=== PATIENT | male | born 1970 | race Caucasian/White ===

== ENCOUNTER 2018-08-05 12:48 | Inpatient (IN) | payer OTHER ==
[2018-08-05 21:44] VITALS: BMI 22.5
--- NOTE | 2018-08-05 23:35 | HP ---
CIWA Score Nausea/Vomitin-No Nausea/No Vomiting Muscle Tremors: 3 Anxiety: 4-Mod. Anxious/Guarded Agitation: 4-Moderately Restless Paroxysmal Sweats: 3 Orientation: 3-Disoriented Date>2 days Tacttile Disturbances: 2-Mild Itch/Numbness/Burn Auditory Disturbances: 2-Mild Harshness/Frighten Visual Disturbances: 2-Mild Sensitivity Headache: 0-None Present CIWA-Ar Total Score: 23 - Admission Criteria OASAS Guidelines: Admission for Medically Managed Detox: Requires at least one of the followin. CIWA greater than 12 2. Seizures within the past 24 hours 3. Delirium tremens within the past 24 hours 4. Hallucinations within the past 24 hours 5. Acute intervention needed for co occurring medical disorder 6. Acute intervention needed for co occurring psychiatric disorder 7. Severe withdrawal that cannot be handled at a lower level of care (continued vomiting, continued diarrhea, abnormal vital signs) requiring intravenous medication and/or fluids 8. Patient presents the following: CIWA greater than 12 Admission Criteria Met: Admission criteria met Admission ROS [facility] Chief Complaint: c/o worsening withdrawal sx's Allergies/Adverse Reactions: Allergies Allergy/AdvReac Type Severity Reaction Status Date / Time No Known Allergies Allergy Verified 08/05/18 21:38 History of Present Illness: 47 Y.O. MALE WITH BENZO AND OPIOID DEPENDENCE HERE FOR DETOX. THIS IS CLIENT FIRST ADMISSION HERE REFERRED BY HIM MMTP PROGRAM. HE REPORTS THAT HE IS ON MMTP 90 MG DAILY. LDM TODAY PENDING VERIFICATION. REPORTS LONGEST CLEAN TIME IS 4 YEARS WHILE INCARCERATED. RELAPSING 2018. DENIES HX/O OVERDOSE, SEIZURES, BLACKOUTS', DT'S, SI/HI/AVH. HOMELESS, UNEMPLOYED, DENIES LEGALS Exam Limitations: No Limitations - Ebola screening Have you traveled outside of the country in the last 21 days: No Have you had contact with anyone from an Ebola affected area: No - Review of Systems Constitutional: Chills, Loss of Appetite, Night Sweats, Changes in sleep EENT: reports: No Symptoms Reported Respiratory: reports: No Symptoms reported Cardiac: reports: No Symptoms Reported GI: reports: Poor Appetite, Poor Fluid Intake : reports: No Symptoms Reported Musculoskeletal: reports: No Symptoms Reported Integumentary: reports: No Symptoms Reported Neuro: reports: No Symptoms reported Endocrine: reports: No Symptoms Reported Hematology: reports: No Symptoms Reported Psychiatric: reports: Agitated (IRRITABLE), Anxious, Depressed Patient History - Patient Medical History Hx Anemia: No Hx Asthma: No Hx Chronic Obstructive Pulmonary Disease (COPD): No Hx Cancer: No Hx Cardiac Disorders: No Hx Congestive Heart Failure: No Hx Hypertension: No Hx Hypercholesterolemia: No Hx Pacemaker: No Hx Seizures: No Hx Dementia: No Hx Diabetes: No Hx Gastrointestinal Disorders: No Hx Liver Disease: No Hx Genitourinary Disorders: No Hx Sexually Transmitted Disorders: No Hx Renal Disease (ESRD): No Hx Thyroid Disease: No Hx Human Immunodeficiency Virus (HIV): No Hx Hepatitis C: Yes (TX'ED) Hx Depression: No Hx Suicide Attempt: No Hx Bipolar Disorder: No Hx Schizophrenia: No - Patient Surgical History Past Surgical History: No - PPD History Previous Implant?: Yes Documented Results: Positive w/o proof Implanted On Prior [facility] Admission?: No PPD to be Administered?: No - Smoking Cessation Smoking history: Current every day smoker () Have you smoked in the past 12 months: Yes Aproximately how many cigarettes per day: 4 Cigars Per Day: 0 Hx Chewing Tobacco Use: No Initiated information on smoking cessation: Yes 'Breaking Loose' booklet given: 08/05/18 - Substance & Tx. History Hx Alcohol Use: Yes Hx Substance Use: Yes Substance Use Type: Alcohol, Tranquilizers (XANAX) Hx Substance Use Treatment: Yes (MMTP PROGRAM) - Substances abused Alprazolam (Xanax) Substance route: Oral Frequency: Daily Amount used: 3/2MG Age of first use: 45 Date of last use: 08/04/18 Family Disease History - Family Disease History Family Disease History: Other: Brother (ALCOHOLISM- ) Admission Physical Exam [facility] - Vital Signs Vital Signs: Vital Signs - 24 hr 08/05/18 08/05/18 21:37 22:30 Temperature 98.6 F 98.6 F Pulse Rate 61 61 Respiratory 18 18 Rate Blood Pressure 96/70 96/70 - Physical General Appearance: Yes: Moderate Distress, Tremorous, Irritable, Anxious HEENTM: Yes: EOMI, Normocephalic, Normal Voice, RAQUEL, Pharynx Normal, Other ( POOR DENTITION) Respiratory: Yes: Chest Non-Tender, Lungs Clear, Normal Breath Sounds, No Respiratory Distress, No Accessory Muscle Use Neck: Yes: No masses,lesions,Nodules, Supple, Trachea in good position Breast: Yes: Breast Exam Deferred Cardiology: Yes: Regular Rhythm, Regular Rate, S1, S2 Abdominal: Yes: Non Tender, Flat, Soft, Increased Bowel Sounds Genitourinary: Yes: Within Normal Limits (NO C/O) Back: Yes: Normal Inspection Musculoskeletal: Yes: full range of Motion, Gait Steady Extremities: Yes: Normal Capillary Refill, Normal Range of Motion, Non-Tender, Tremors Neurological: Yes: Fully Oriented, Alert, Motor Strength 5/5, Depressed Affect Integumentary: Yes: Dry, Warm Lymphatic: Yes: Within Normal Limits - Diagnostic (1) Sedative, hypnotic or anxiolytic dependence, uncomplicated Current Visit: Yes Status: Chronic (2) Methadone maintenance therapy patient Current Visit: Yes Status: Acute (3) Homeless Current Visit: Yes Status: Acute (4) At risk for dehydration due to poor fluid intake Current Visit: Yes Status: Acute Cleared for Admission S - Detox or Rehab [facility] Level of Care: Medically Managed Detox Regimen/Protocol: Valium Claeared for Rehab Admission: No Breathalyzer - Breathalyzer Breathalyzer: 0 Urine Drug Screen - Test Device Lot number: [id number] Expiration date: 04/21/20 - Control Is test valid?: Yes - Results Drug screen NEGATIVE: No Urine drug screen results: MTD-Methadone, BZO-Benzodiazepines Inpatient Rehab Admission - Rehab Decision to Admit Inpatient rehab admission?: No
[2018-08-05] MEDS ORDERED: MAGNESIUM CITRATE 300 ML BOTTLE PO PRN (23:49)
[2018-08-05] MEDS ORDERED: NICOTINE POLACRILEX 2 MG GUM BUC PRN (23:49)
[2018-08-05] MEDS ORDERED: MAG HYDROX/AL HYDROX/SIMETH 30 ML UNIT-DOSE CUP PO PRN (23:49)
[2018-08-05] MEDS ORDERED: P-EPHED 60MG/TRIPROLIDI 2.5MG TABLET PO PRN (23:49)
[2018-08-05] MEDS ORDERED: ONDANSETRON *ODT* 4 MG TABLET SL PRN (23:49)
[2018-08-05] MEDS ORDERED: hydrOXYzine PAMOATE 25 MG CAPSULE (FP) PO PRN (23:49)
[2018-08-05] MEDS ORDERED: METHOCARBAMOL 500 MG TABLET PO PRN (23:49)
[2018-08-05] MEDS ORDERED: guaiFENesin 200 MG/10 ML 10 ML UNIT-DOSE CUPS PO PRN (23:49)
[2018-08-05] MEDS ORDERED: IBUPROFEN 400 MG TABLET (FP) PO PRN (23:49)
[2018-08-05] MEDS ORDERED: BISMUTH SUBSALICYLATE 524 MG/30 ML UD PO PRN (23:49)
[2018-08-05] MEDS ORDERED: MENTHOL/PHENOL 1 EACH UD MM PRN (23:49)
[2018-08-05] MEDS ORDERED: MAGNESIUM HYDROX 2400MG/30ML ORAL SUSPENSION 30 ML CUP PO PRN (23:49)
[2018-08-05] MEDS ORDERED: ACETAMINOPHEN 325 MG TABLET (FP) PO PRN ×2 (23:49)
[2018-08-05] MEDS ORDERED: MELATONIN 5 MG TABLETS PO PRN (23:49)
[2018-08-06] MEDS: diazePAM 5 MG TABLET PO SCH ×4 (00:14→22:20)
[2018-08-06] MEDS: diazePAM 5 MG TABLET PO PRN (00:28)
[2018-08-06] MEDS ORDERED: METHADONE HCL 40 MG DISPERSABLE TABLET PO SCH (08:45)
[2018-08-06] MEDS ORDERED: METHADONE HCL 10 MG TABLET ONE (09:42)
[2018-08-06] MEDS ORDERED: METHADONE HCL 40 MG DISPERSABLE TABLET ONE (09:43)
[2018-08-06] MEDS: METHADONE 10 MG, METHADONE 80 MG PO SCH (10:23)
[2018-08-06] MEDS: PRENATAL VITAMINS W/ FOLIC ACID TABLET (FP) PO SCH (10:23)
[2018-08-06] MEDS: NICOTINE 14 MG/24 HOURS TOPICAL PATCH TD SCH (10:24)
--- NOTE | 2018-08-06 10:30 | PN ---
S CIWA - CIWA Score Nausea/Vomitin-No Nausea/No Vomiting Muscle Tremors: 2 Anxiety: 2 Agitation: 2 Paroxysmal Sweats: 3 Orientation: 0-Oriented Tacttile Disturbances: 1-Very Mild Itch/Numbness Auditory Disturbances: 0-None Visual Disturbances: 0-None Headache: 2-Mild CIWA-Ar Total Score: 12 BHS Progress Note (SOAP) Subjective: c/o headaches, sweats, anxiety, and shakes Objective: 08/06/18 10:29 Vital Signs 08/06/18 08/06/18 08/06/18 03:30 06:12 09:29 Temperature 97.1 F L 96.8 F L Pulse Rate 78 66 Respiratory 18 18 16 Rate Blood Pressure 106/64 115/64 Labs pending. Assessment: 08/06/18 10:29 AOX3, in no acute distress Full ROM, ambulating in the unit. Withdrawal symptoms. Plan: continue detox. increase fluids.
[2018-08-06 10:47] LABS: ALBUMIN 3.2 g/dl (3.4-5.0); BILIRUBIN,TOTAL 0.5 mg/dL (0.2-1); BLOOD UREA NITROGEN 8.8 mg/dL (7-18); CALCIUM 8.5 mg/dL (8.5-10.1); CREATININE 0.6 mg/dL (0.55-1.3); TOT PROT 5.8 g/dl (6.4-8.2)
[2018-08-06 11:16] LABS: HEMATOCRIT 35.7 % (35.4-49); HEMOGLOBIN 12.3 GM/dL (11.7-16.9); MCH 31.5 pg (25.7-33.7); MCHC 34.5 g/dl (32.0-35.9); MEAN CELL VOLUME 91.3 fl (80-96); MEAN PLT VOLUME 8.7 fl (7.5-11.1); RBC 3.91 M/mm3 (4.00-5.60); RDW 13.7 % (11.9-15.9); WHITE BLOOD COUNT 5.4 K/mm3 (4.0-10.0)
[2018-08-06 11:33] LABS: PLATELET COUNT 197 K/MM3 (134-434)
--- NOTE | 2018-08-06 15:38 | CONSULT ---
[facility] Psychiatric Consult - Data Date of interview: 08/06/18 Admission source: [facility] Identifying data: First admission to [facility] for this 47 y/o male self-referred for detoxification treatment (heroin, xanax). Examined at bedside , [address]. Patient is , a father of eight, homeless, unemployed and supported on food stamps. Substance Abuse History: Discussed in this session. Michele confirms history of substance abuse as profiled in current [facility] report : Smoking history: Current every day smoker. Have you smoked in the past 12 months: Yes. Aproximately how many cigarettes per day: 4. Cigars Per Day: 0. Hx Chewing Tobacco Use: No. Initiated information on smoking cessation: Yes. 'Breaking Loose' booklet given: 08/05/18. - Substance & Tx. History. Hx Alcohol Use: Yes. Hx Substance Use: Yes. Substance Use Type: Alcohol, Tranquilizers (XANAX). Hx Substance Use Treatment: Yes (MMTP PROGRAM). - Substances abused. Alprazolam (Xanax). Substance route: Oral. Frequency: Daily. Amount used: 3/ 2MG. Age of first use: 45. Date of last use: 08/04/18 Medical History: Remarkable for self-report of hepatitis C and arthritis. Psychiatric History: Patient denies history of psychiatric hospitalizations or suicide attempts. Mr Malloy admits to using xanax (not prescribed, bought in the streets). He is currently in methadone maintenance (90 mg//day) at a program in [facility]. Patient denies having a mental illness. Physical/Sexual Abuse/Trauma History: Patient denies. Additional Comment: Urine drug screen results: MTD-Methadone, BZO- Benzodiazepines. Noted. Mental Status Exam - Mental Status Exam Alert and Oriented to: Time, Place, Person Cognitive Function: Grossly Intact Patient Appearance: Unkempt, Disheveled (tattoos on both upper extremities) Mood: Nervous, Withdrawn Affect: Mood Congruent, Constricted Patient Behavior: Sedated (mildly sedated), Fatigued Speech Pattern: Slurred Voice Loudness: Moderately Soft/Quiet Thought Process: Goal Oriented Thought Disorder: Not Present Hallucinations: Denies Suicidal Ideation: Denies Homicidal Ideation: Denies Insight/Judgement: Poor Sleep: Well Appetite: Good Muscle strength/Tone: Normal Gait/Station: Other (not observed : in bed all day) Psychiatric Findings - Problem List ([place] 1, 2,3) (1) Sedative, hypnotic or anxiolytic dependence, uncomplicated Current Visit: Yes Status: Chronic (2) Opioid dependence on agonist therapy Current Visit: Yes Status: Chronic (3) Nicotine dependence Current Visit: Yes Status: Chronic (4) Substance induced mood disorder Current Visit: Yes Status: Suspected - Initial Treatment Plan Initial Treatment Plan: Psychoeducation. Sleep hygiene. Detoxification in progress. Support. Encourage patient to address personal hygiene. NA meetings. Observation.
[2018-08-06] MEDS: THIAMINE HCL 100 MG TABLET (FP) PO SCH (22:20)
[2018-08-07] MEDS ORDERED: METHADONE HCL 10 MG TABLET ONE (04:12)
[2018-08-07] MEDS ORDERED: METHADONE HCL 40 MG DISPERSABLE TABLET ONE (04:12)
[2018-08-07] MEDS: METHADONE 10 MG, METHADONE 80 MG PO SCH (05:47)
[2018-08-07] MEDS: diazePAM 5 MG TABLET PO PRN (05:47)
[2018-08-07] MEDS: PRENATAL VITAMINS W/ FOLIC ACID TABLET (FP) PO SCH (10:12)
[2018-08-07] MEDS: diazePAM 5 MG TABLET PO SCH ×2 (10:12→22:38)
[2018-08-07] MEDS: NICOTINE 14 MG/24 HOURS TOPICAL PATCH TD SCH (10:12)
--- NOTE | 2018-08-07 11:24 | PN ---
S CIWA - CIWA Score Nausea/Vomitin Muscle Tremors: 1-None Visible, but [place] Anxiety: 1-Mildly Anxious Agitation: 1-Slight > Activity Paroxysmal Sweats: 1-Minimal Palms Moist Orientation: 0-Oriented Tacttile Disturbances: 0-None Auditory Disturbances: 0-None Visual Disturbances: 0-None Headache: 1-Very Mild CIWA-Ar Total Score: 7 BHS Progress Note (SOAP) Subjective: headache poor sleep anxiety Objective: 08/07/18 11:21 Laboratory Tests 08/06/18 08/06/18 08/06/18 07:40 07:40 07:40 WBC 5.4 RBC 3.91 L Hgb 12.3 Hct 35.7 MCV 91.3 MCH 31.5 MCHC 34.5 RDW 13.7 Plt Count 197 MPV 8.7 Sodium 142 Potassium 4.0 Chloride 105 Carbon Dioxide 34 H Anion Gap 3 L BUN 8.8 Creatinine 0.6 Est GFR (CKD-EPI)AfAm 136.83 Est GFR (CKD-EPI)NonAf 118.06 Random Glucose 78 Calcium 8.5 Total Bilirubin 0.5 AST 39 H ALT 53 Alkaline Phosphatase 77 Total Protein 5.8 L Albumin 3.2 L RPR Titer Nonreactive Laboratory Tests 08/06/18 08/06/18 08/06/18 07:40 07:40 07:40 WBC 5.4 RBC 3.91 L Hgb 12.3 Hct 35.7 MCV 91.3 MCH 31.5 MCHC 34.5 RDW 13.7 Plt Count 197 MPV 8.7 Sodium 142 Potassium 4.0 Chloride 105 Carbon Dioxide 34 H Anion Gap 3 L BUN 8.8 Creatinine 0.6 Est GFR (CKD-EPI)AfAm 136.83 Est GFR (CKD-EPI)NonAf 118.06 Random Glucose 78 Calcium 8.5 Total Bilirubin 0.5 AST 39 H ALT 53 Alkaline Phosphatase 77 Total Protein 5.8 L Albumin 3.2 L RPR Titer Nonreactive Vital Signs - 24 hr 08/06/18 08/06/18 08/06/18 13:31 17:56 21:34 Temperature 97.0 F L 98.5 F 97.6 F Pulse Rate 66 67 57 L Respiratory 18 18 18 Rate Blood Pressure 106/63 120/73 113/71 08/07/18 08/07/18 08/07/18 00:30 03:30 06:30 Temperature Pulse Rate Respiratory 18 18 18 Rate Blood Pressure 08/07/18 08/07/18 06:37 09:19 Temperature 97.2 F L 97.0 F L Pulse Rate 61 56 L Respiratory 18 18 Rate Blood Pressure 102/58 L 109/63 alert, ambulating interactive Assessment: 08/07/18 11:23 alcohol dep/withdrawal Plan: cont detox protocol and dc per schedule
--- NOTE | 2018-08-07 16:54 | EKG ---
Test Reason : Blood Pressure : / mmHG Vent. Rate : 071 BPM Atrial Rate : 071 BPM P-R Int : 146 ms QRS Dur : 094 ms QT Int : 438 ms P-R-T Axes : 072 086 076 degrees QTc Int : 475 ms NORMAL SINUS RHYTHM NORMAL ECG NO PREVIOUS ECGS AVAILABLE Confirmed by MD MARKOS, CLAUDIA ([id number]) on 08/07/2018 4:54:06 PM Referred By: CONSUELO Confirmed By:CLAUDIA BURROWS MD
[2018-08-07] MEDS: THIAMINE HCL 100 MG TABLET (FP) PO SCH (22:38)
[2018-08-07 22:49] LABS: PH,URINE 5.5 (5.0-8.0); URINE APPEARANCE CLEAR; URINE BILIRUBIN NEGATIVE (NEGATIVE); URINE COLOR DK YELLOW; URINE GLUCOSE (UA) NEGATIVE (NEGATIVE); URINE KETONE TRACE (NEGATIVE); URINE LEUK ESTERASE NEGATIVE (NEGATIVE); URINE NITRITE NEGATIVE (NEGATIVE); URINE PROTEIN NEGATIVE (NEGATIVE)
[2018-08-08] MEDS ORDERED: METHADONE HCL 10 MG TABLET ONE (04:57)
[2018-08-08] MEDS ORDERED: METHADONE HCL 40 MG DISPERSABLE TABLET ONE (04:58)
[2018-08-08] MEDS: METHADONE 10 MG, METHADONE 80 MG PO SCH (05:21)
[2018-08-08] MEDS ORDERED: diazePAM 5 MG TABLET PO SCH (06:00)
[2018-08-08 09:23] VITALS: BP 116/73; PULSE 70; TEMP 97.6
[2018-08-08] MEDS: NICOTINE 14 MG/24 HOURS TOPICAL PATCH TD SCH (10:53)
[2018-08-08] MEDS: PRENATAL VITAMINS W/ FOLIC ACID TABLET (FP) PO SCH (10:53)
--- NOTE | 2018-08-08 16:38 | DS ---
[facility] Detox Discharge Summary Admission Date: 08/05/18 Discharge Date: 08/08/18 - History Present History: Opioid Dependence, Sedative Dependence, MMTP Additional Comments: PATIENT GOING TO PENDING SALE TO [facility] ([place] FOR AFTERCARE. PATIENT WAS DISCHARGED FROM DETOX UNIT IN STABLE MEDICAL CONDITION. Pertinent Past History: M.M.T.P., Hep C (Treated), Nicotine Dependence. - Physical Exam Results Vital Signs: Vital Signs Temperature 97.6 F 08/08/18 09:22 Pulse Rate 70 08/08/18 09:22 Respiratory Rate 18 08/08/18 09:22 Blood Pressure 116/73 08/08/18 09:22 O2 Sat by Pulse Oximetry (%) Pertinent Admission Physical Exam Findings: WITHDRAWAL SYMPTOMS. Laboratory Tests 08/06/18 08/06/18 08/06/18 07:40 07:40 07:40 WBC 5.4 RBC 3.91 L Hgb 12.3 Hct 35.7 MCV 91.3 MCH 31.5 MCHC 34.5 RDW 13.7 Plt Count 197 MPV 8.7 Sodium 142 Potassium 4.0 Chloride 105 Carbon Dioxide 34 H Anion Gap 3 L BUN 8.8 Creatinine 0.6 Est GFR (CKD-EPI)AfAm 136.83 Est GFR (CKD-EPI)NonAf 118.06 Random Glucose 78 Calcium 8.5 Total Bilirubin 0.5 AST 39 H ALT 53 Alkaline Phosphatase 77 Total Protein 5.8 L Albumin 3.2 L Urine Color Urine Appearance Urine pH Ur Specific [place] Urine Protein Urine Glucose (UA) Urine Ketones Urine Blood Urine Nitrite Urine Bilirubin Urine Urobilinogen Ur Leukocyte Esterase RPR Titer Nonreactive 08/07/18 16:00 WBC RBC Hgb Hct MCV MCH MCHC RDW Plt Count MPV Sodium Potassium Chloride Carbon Dioxide Anion Gap BUN Creatinine Est GFR (CKD-EPI)AfAm Est GFR (CKD-EPI)NonAf Random Glucose Calcium Total Bilirubin AST ALT Alkaline Phosphatase Total Protein Albumin Urine Color Dk yellow Urine Appearance Clear Urine pH 5.5 Ur Specific [place] 1.023 Urine Protein Negative Urine Glucose (UA) Negative Urine Ketones Trace H Urine Blood Negative Urine Nitrite Negative Urine Bilirubin Negative Urine Urobilinogen 1.0 Ur Leukocyte Esterase Negative RPR Titer LABS NOTED. - Treatment Hospital Course: Detox Protocol Followed, Detoxed Safely, Responded well, Discharged Condition Good, Rehab Referral Accepted Patient has Accepted a Rehab Referral to: PENDING SALE TO [facility] ([place]). - Diagnosis (1) At risk for dehydration due to poor fluid intake Status: Acute (2) Homeless Status: Acute (3) Methadone maintenance therapy patient Status: Chronic (4) Sedative, hypnotic or anxiolytic dependence, uncomplicated Status: Acute (5) Nicotine dependence Status: Chronic Qualifiers: Nicotine product type: cigarettes Substance use status: uncomplicated Qualified Code(s): F17.210 - Nicotine dependence, cigarettes, uncomplicated (6) Substance induced mood disorder Status: Suspected - AMA Did Patient Leave Against Medical Advice: No
== END 2018-08-08 12:06 | disposition home or self-care (01) | DRG 773 ==
LOC: YASAS 12:48 → Y3N 23:36
PROVIDERS: ADMIT Surgery; ATTEND Surgery
PROC: HZ2ZZZZ Detoxification Services for Substance Abuse Treatment (ICD-10-PCS; principal; 2018-08-05)
DX: F13.230 Sedative, hypnotic or anxiolytic dependence with withdrawal, uncomplicated (principal); F11.20 Opioid dependence, uncomplicated; F17.210 Nicotine dependence, cigarettes, uncomplicated; F19.24 Other psychoactive substance dependence with psychoactive substance-induced mood disorder; R63.8 Other symptoms and signs concerning food and fluid intake; Z59.0 Homelessness
CPT/HCPCS: 36415; 80053; 81003; 85027; 86593; 93005; 93010

== ENCOUNTER 2018-10-17 12:13 | Inpatient (IN) | payer OTHER ==
[2018-10-17 14:53] VITALS: BMI 22.5
--- NOTE | 2018-10-17 15:25 | HP ---
<Satya Peñaloza - Last Filed: 10/17/18 16:23> CIWA Score Nausea/Vomitin-No Nausea/No Vomiting Muscle Tremors: 4-Moderate,w/Arms Extend Anxiety: 2 Agitation: 1-Slight > Activity Paroxysmal Sweats: 1-Minimal Palms Moist Orientation: 2-Disoriented Date<2 days Tacttile Disturbances: 1-Very Mild Itch/Numbness Auditory Disturbances: 0-None Visual Disturbances: 4-Moderate Hallucinations Headache: 0-None Present CIWA-Ar Total Score: 15 - Admission Criteria OASAS Guidelines: Admission for Medically Managed Detox: Requires at least one of the followin. CIWA greater than 12 2. Seizures within the past 24 hours 3. Delirium tremens within the past 24 hours 4. Hallucinations within the past 24 hours 5. Acute intervention needed for co occurring medical disorder 6. Acute intervention needed for co occurring psychiatric disorder 7. Severe withdrawal that cannot be handled at a lower level of care (continued vomiting, continued diarrhea, abnormal vital signs) requiring intravenous medication and/or fluids 8. Patient presents the following: CIWA greater than 12 Admission Criteria Met: Admission criteria met Admission ROS [facility] Chief Complaint: detox for benzo Allergies/Adverse Reactions: Allergies Allergy/AdvReac Type Severity Reaction Status Date / Time Fish Containing Products Allergy Intermediate Hives Verified 10/17/18 14:54 tomato Allergy Intermediate Hives Verified 10/17/18 14:54 History of Present Illness: 48M w/ arthritis, peripheral neuropathy(formerly on gabapentin), h/o of distant heroin, methadone(100mg, [place]) presents for benzo detox after 3-4ys of dependence, taking 3-5 pills(2mg ea) daily. Last taken ~6am on 10/16/18. Gets benzo from the streets. Was recently evaluated in the ED([facility] in the [place]) for peripheral neuropathy w/o any intervention. No h/o benzo-related seizures. H/o shelter(last 2008). Tried detox 2ys prior(off bnezos for a few months but relapsed after a few months due to family stressors). Hasn't seen family and children in a few years. Non-domicile, living on the streets for a few months. Has had b/l plantar wounds x few weeks w/o purulence. Painful to walk and socks would stick to wound. - Ebola screening Have you traveled outside of the country in the last 21 days: No Have you had contact with anyone from an Ebola affected area: No - Review of Systems Constitutional: Unintentional Wgt. Loss (20lbs in 4ys), Other (no F/C) EENT: denies: Blurred Vision, Difficulty Swallowing Respiratory: denies: Cough, Productive cough Cardiac: denies: Irregular Heart Rate, Lightheadedness, Chest Tightness GI: denies: Nausea, Vomiting, Tarry Stools : denies: Burning, Dysuria, Incontinence Musculoskeletal: reports: Joint Swelling, Joint Stiffness. denies: Back Pain, Muscle Weakness Integumentary: reports: Erythema, Other (swelling to lower legs x weeks) Neuro: denies: Headache, Numbness, Dizziness Psychiatric: reports: Agitated, Anxious, Disorientated (oriented to name and location) Patient History - Patient Medical History Hx Anemia: No Hx Asthma: No Hx Chronic Obstructive Pulmonary Disease (COPD): No Hx Cancer: No Hx Cardiac Disorders: No Hx Congestive Heart Failure: No Hx Hypertension: No Hx Hypercholesterolemia: No Hx Pacemaker: No Hx Seizures: No Hx Dementia: No Hx Diabetes: No Hx Gastrointestinal Disorders: No Hx Liver Disease: No Hx Genitourinary Disorders: No Hx Sexually Transmitted Disorders: No Hx Renal Disease (ESRD): No Hx Thyroid Disease: No Hx Human Immunodeficiency Virus (HIV): No Hx Hepatitis C: Yes (TX'ED) Hx Depression: No Hx Suicide Attempt: No Hx Bipolar Disorder: No Hx Schizophrenia: No - Patient Surgical History Past Surgical History: No Hx Neurologic Surgery: No Hx Cataract Extraction: No Hx Cardiac Surgery: No Hx Lung Surgery: No Hx Breast Surgery: No Hx Breast Biopsy: No Hx Abdominal Surgery: No Hx Appendectomy: No Hx Cholecystectomy: No Hx Genitourinary Surgery: No Hx Section: No Hx Orthopedic Surgery: No Anesthesia Reaction: No - Smoking Cessation Smoking history: Unknown if ever smoked () Have you smoked in the past 12 months: No Aproximately how many cigarettes per day: 4 Cigars Per Day: 0 Hx Chewing Tobacco Use: No - Substances abused Alprazolam (Xanax) Substance route: Oral Frequency: Daily Amount used: (7) 2MG Age of first use: 45 Date of last use: 10/16/18 Benzodiazepine (Klonopin) Substance route: Oral Frequency: Daily Amount used: (7) 2mg pills Age of first use: 28 Date of last use: 10/16/18 Family Disease History - Family Disease History Family Disease History: Other: Brother (ALCOHOLISM- ) Admission Physical Exam [facility] - Vital Signs Vital Signs: Vital Signs - 24 hr 10/17/18 14:45 Temperature 96.5 F L Pulse Rate 55 L Respiratory 18 Rate Blood Pressure 102/66 - Physical General Appearance: Yes: No Apparent Distress, Thin. No: Intoxicated HEENTM: Yes: Other (moderate temporal wasting). No: Pale Conjunctivae R, Pale Conjunctivae L, Scleral Ictenus R, Scleral Ictenus L Respiratory: Yes: Lungs Clear, No Respiratory Distress. No: Chest Non-Tender, Labored Respiration, No Accessory Muscle Use, Rapid RR, Accessory Muscle Use, Crackles, Wheezing Neck: Yes: Within Normal Limits, No masses,lesions,Nodules, Trachea in good position Cardiology: Yes: Regular Rhythm, Regular Rate, S1, S2. No: Irregularly Irregular Abdominal: Yes: Non Tender, Soft. No: Distended, Guarding, Rebound, Tenderness Genitourinary: No: Burning, Frequency, Hesitency, Incontinient Musculoskeletal: Yes: Gait Steady, Other (weakness in flexion/extension of left wrist) Extremities: Yes: Tremors, Other (draining serous wounds to b/l plantar forefeet , no surrounding erythema, TTP. 1+ pitting edema to mid lower leg) Neurological: Yes: Alert Integumentary: Yes: Dry, Warm Cleared for Admission [facility] - Detox or Rehab [facility] Level of Care: Medically Managed Detox Regimen/Protocol: Valium Breathalyzer - Breathalyzer Breathalyzer: 0 Urine Drug Screen - Test Device Lot number: [id number] Expiration date: 04/21/20 - Control Is test valid?: Yes - Results Drug screen NEGATIVE: No Urine drug screen results: MTD-Methadone, BZO-Benzodiazepines Inpatient Rehab Admission - Rehab Decision to Admit Inpatient rehab admission?: No <Jeison Link - Last Filed: 10/17/18 16:45> CIWA Score - Admission Criteria [facility] Guidelines: Admission for Medically Managed Detox: Requires at least one of the followin. CIWA greater than 12 2. Seizures within the past 24 hours 3. Delirium tremens within the past 24 hours 4. Hallucinations within the past 24 hours 5. Acute intervention needed for co occurring medical disorder 6. Acute intervention needed for co occurring psychiatric disorder 7. Severe withdrawal that cannot be handled at a lower level of care (continued vomiting, continued diarrhea, abnormal vital signs) requiring intravenous medication and/or fluids 8. Admission Physical Exam [facility] - Vital Signs Vital Signs: Vital Signs - 24 hr 10/17/18 10/17/18 14:45 15:23 Temperature 96.5 F L 96.5 F L Pulse Rate 55 L 55 L Respiratory 18 18 Rate Blood Pressure 102/66 102/66 - Physical Extremities: Yes: Other (draining serous wounds to b/l plantar forefeet, no surrounding erythema, TTP. 1+ pitting edema to mid lower leg open stage 2 plantaR WOUNDS NOTED) - Diagnostic (1) Sedative, hypnotic or anxiolytic dependence, uncomplicated Current Visit: Yes Status: Chronic (2) Methadone maintenance therapy patient Current Visit: Yes Status: Chronic (3) Opioid dependence on agonist therapy Current Visit: Yes Status: Chronic (4) Benzodiazepine withdrawal Current Visit: Yes Status: Acute
[2018-10-17] MEDS ORDERED: hydrOXYzine PAMOATE 25 MG CAPSULE (FP) PO PRN (15:49)
[2018-10-17] MEDS ORDERED: MELATONIN 5 MG TABLETS PO PRN (15:49)
[2018-10-17] MEDS ORDERED: MENTHOL/PHENOL 1 EACH UD MM PRN (15:49)
[2018-10-17] MEDS ORDERED: METHOCARBAMOL 500 MG TABLET PO PRN (15:49)
[2018-10-17] MEDS ORDERED: MAGNESIUM CITRATE 300 ML BOTTLE PO PRN (15:49)
[2018-10-17] MEDS ORDERED: ACETAMINOPHEN 325 MG TABLET (FP) PO PRN ×2 (15:49)
[2018-10-17] MEDS ORDERED: BISMUTH SUBSALICYLATE 524 MG/30 ML UD PO PRN (15:49)
[2018-10-17] MEDS ORDERED: MAGNESIUM HYDROX 2400MG/30ML ORAL SUSPENSION 30 ML CUP PO PRN (15:49)
[2018-10-17] MEDS ORDERED: MAG HYDROX/AL HYDROX/SIMETH 30 ML UNIT-DOSE CUP PO PRN (15:49)
[2018-10-17] MEDS: CEPHALEXIN MONOHYDRATE 500 MG CAPSULE (UD) PO SCH ×2 (18:06→23:11)
[2018-10-17] MEDS: IBUPROFEN 400 MG TABLET (FP) PO PRN (18:06)
[2018-10-17] MEDS: diazePAM 5 MG TABLET PO PRN (18:06)
[2018-10-17] MEDS: THIAMINE HCL 100 MG TABLET (FP) PO SCH (22:22)
[2018-10-17] MEDS: diazePAM 5 MG TABLET PO SCH (22:22)
[2018-10-17] MEDS: MUPIROCIN 2% TOPICAL OINTMENT 22 GM TUBE TP SCH (22:23)
[2018-10-18] MEDS: diazePAM 5 MG TABLET PO SCH ×3 (06:33→22:19)
[2018-10-18] MEDS: CEPHALEXIN MONOHYDRATE 500 MG CAPSULE (UD) PO SCH ×4 (06:33→23:42)
--- NOTE | 2018-10-18 09:28 | EKG ---
Test Reason : Blood Pressure : / mmHG Vent. Rate : 071 BPM Atrial Rate : 071 BPM P-R Int : 150 ms QRS Dur : 094 ms QT Int : 430 ms P-R-T Axes : 061 078 071 degrees QTc Int : 467 ms NORMAL SINUS RHYTHM NORMAL ECG WHEN COMPARED WITH ECG OF 06-AUG-2018 06:22, NO SIGNIFICANT CHANGE WAS FOUND Confirmed by Yazan Blanco MD ([id number]) on 10/18/2018 9:28:02 AM Referred By: Confirmed By:Yazan Blanco MD
[2018-10-18] MEDS ORDERED: METHADONE HCL 40 MG DISPERSABLE TABLET ONE (09:50)
[2018-10-18] MEDS ORDERED: METHADONE HCL 10 MG TABLET ONE (09:50)
[2018-10-18] MEDS: PRENATAL VITAMINS W/ FOLIC ACID TABLET (FP) PO SCH (09:55)
[2018-10-18] MEDS: IBUPROFEN 400 MG TABLET (FP) PO PRN ×2 (09:55→22:19)
[2018-10-18] MEDS: diazePAM 5 MG TABLET PO PRN (09:55)
[2018-10-18] MEDS: MUPIROCIN 2% TOPICAL OINTMENT 22 GM TUBE TP SCH ×2 (09:56→22:23)
[2018-10-18] MEDS ORDERED: METHADONE 80 MG, METHADONE 20 MG PO ONE (10:00)
[2018-10-18] MEDS ORDERED: METHADONE HCL 10 MG TABLET PO ONE (10:00)
[2018-10-18 11:57] LABS: HEMATOCRIT 32.2 % (35.4-49); MCH 31.4 pg (25.7-33.7); MCHC 34.3 g/dl (32.0-35.9); MEAN CELL VOLUME 91.7 fl (80-96); MEAN PLT VOLUME 8.9 fl (7.5-11.1); PLATELET COUNT 248 K/MM3 (134-434); RBC 3.51 M/mm3 (4.00-5.60); RDW 13.9 % (11.9-15.9); WHITE BLOOD COUNT 5.7 K/mm3 (4.0-10.0)
[2018-10-18 12:26] LABS: ALBUMIN 2.8 g/dl (3.4-5.0); BILIRUBIN,TOTAL 0.3 mg/dL (0.2-1); BLOOD UREA NITROGEN 10.3 mg/dL (7-18); CALCIUM 8.5 mg/dL (8.5-10.1); CREATININE 0.7 mg/dL (0.55-1.3); POTASSIUM 3.7 mmol/L (3.5-5.1)
--- NOTE | 2018-10-18 14:14 | PN ---
S CIWA - CIWA Score Nausea/Vomitin Muscle Tremors: 2 Anxiety: 2 Agitation: 2 Paroxysmal Sweats: 1-Minimal Palms Moist Orientation: 0-Oriented Tacttile Disturbances: 1-Very Mild Itch/Numbness Auditory Disturbances: 0-None Visual Disturbances: 0-None Headache: 2-Mild CIWA-Ar Total Score: 12 BHS Progress Note (SOAP) Subjective: alert,irritable,anxious,interrupted sleep,tremor Objective: 10/18/18 14:13 Vital Signs Temperature 97.6 F 10/18/18 13:17 Pulse Rate 65 10/18/18 13:17 Respiratory Rate 18 10/18/18 13:17 Blood Pressure 88/58 L 10/18/18 13:17 O2 Sat by Pulse Oximetry (%) 10/18/18 14:13 Laboratory Last Values WBC 5.7 K/mm3 (4.0-10.0) 10/18/18 07:30 RBC 3.51 M/mm3 (4.00-5.60) L 10/18/18 07:30 Hgb 11.0 GM/dL (11.7-16.9) L 10/18/18 07:30 Hct 32.2 % (35.4-49) L 10/18/18 07:30 MCV 91.7 fl (80-96) 10/18/18 07:30 MCH 31.4 pg (25.7-33.7) 10/18/18 07:30 MCHC 34.3 g/dl (32.0-35.9) 10/18/18 07:30 RDW 13.9 % (11.9-15.9) 10/18/18 07:30 Plt Count 248 K/MM3 (134-434) D 10/18/18 07:30 MPV 8.9 fl (7.5-11.1) 10/18/18 07:30 Sodium 143 mmol/L (136-145) 10/18/18 07:30 Potassium 3.7 mmol/L (3.5-5.1) 10/18/18 07:30 Chloride 106 mmol/L (98-107) 10/18/18 07:30 Carbon Dioxide 30 mmol/L (21-32) 10/18/18 07:30 Anion Gap 8 MMOL/L (8-16) 10/18/18 07:30 BUN 10.3 mg/dL (7-18) 10/18/18 07:30 Creatinine 0.7 mg/dL (0.55-1.3) 10/18/18 07:30 Est GFR (CKD-EPI)AfAm 127.53 10/18/18 07:30 Est GFR (CKD-EPI)NonAf 110.04 10/18/18 07:30 Random Glucose 121 mg/dL (74-106) H 10/18/18 07:30 Calcium 8.5 mg/dL (8.5-10.1) 10/18/18 07:30 Total Bilirubin 0.3 mg/dL (0.2-1) 10/18/18 07:30 AST 16 U/L (15-37) 10/18/18 07:30 ALT 25 U/L (13-61) 10/18/18 07:30 Alkaline Phosphatase 71 U/L (45-117) 10/18/18 07:30 Total Protein 6.0 g/dl (6.4-8.2) L 10/18/18 07:30 Albumin 2.8 g/dl (3.4-5.0) L 10/18/18 07:30 RPR Titer Nonreactive (NONREACTIVE) 10/18/18 07:30 Assessment: 10/18/18 14:13 withdrawal symptom Plan: continue detox,valium regimen
[2018-10-18] MEDS: THIAMINE HCL 100 MG TABLET (FP) PO SCH (22:19)
[2018-10-19] MEDS ORDERED: METHADONE HCL 10 MG TABLET ONE (04:31)
[2018-10-19] MEDS ORDERED: METHADONE HCL 40 MG DISPERSABLE TABLET ONE (04:32)
[2018-10-19] MEDS: diazePAM 5 MG TABLET PO SCH ×2 (05:17→17:00)
[2018-10-19] MEDS: CEPHALEXIN MONOHYDRATE 500 MG CAPSULE (UD) PO SCH ×4 (05:17→23:08)
[2018-10-19] MEDS: METHADONE 80 MG, METHADONE 20 MG PO SCH (05:18)
[2018-10-19] MEDS ORDERED: METHADONE HCL 10 MG TABLET PO SCH (06:00)
[2018-10-19] MEDS: diazePAM 5 MG TABLET PO PRN (10:10)
[2018-10-19] MEDS: PRENATAL VITAMINS W/ FOLIC ACID TABLET (FP) PO SCH (10:11)
[2018-10-19] MEDS: MUPIROCIN 2% TOPICAL OINTMENT 22 GM TUBE TP SCH ×2 (10:11→21:54)
--- NOTE | 2018-10-19 13:12 | PN ---
S CIWA - CIWA Score Nausea/Vomitin Muscle Tremors: 2 Anxiety: 3 Agitation: 2 Paroxysmal Sweats: No Perspiration Orientation: 0-Oriented Tacttile Disturbances: 0-None Auditory Disturbances: 0-None Visual Disturbances: 0-None Headache: 2-Mild CIWA-Ar Total Score: 11 BHS Progress Note (SOAP) Subjective: alert,irritable,anxious,interrupted sleep,pain in the body Objective: 10/19/18 13:11 Vital Signs Temperature 96.7 F L 10/19/18 13:08 Pulse Rate 68 10/19/18 13:08 Respiratory Rate 18 10/19/18 13:08 Blood Pressure 103/77 10/19/18 13:08 O2 Sat by Pulse Oximetry (%) Assessment: 10/19/18 13:11 withdrawal symptom Plan: continue detox valium regimen,discharge in am
[2018-10-19] MEDS: THIAMINE HCL 100 MG TABLET (FP) PO SCH (21:52)
[2018-10-20] MEDS ORDERED: METHADONE HCL 40 MG DISPERSABLE TABLET ONE (04:56)
[2018-10-20] MEDS ORDERED: METHADONE HCL 10 MG TABLET ONE (04:56)
[2018-10-20] MEDS: CEPHALEXIN MONOHYDRATE 500 MG CAPSULE (UD) PO SCH (05:19)
[2018-10-20] MEDS: METHADONE 80 MG, METHADONE 20 MG PO SCH (05:20)
[2018-10-20] MEDS ORDERED: diazePAM 5 MG TABLET PO ONE (06:00)
[2018-10-20 09:07] VITALS: BP 109/78; PULSE 84; TEMP 98.3
[2018-10-20] MEDS: PRENATAL VITAMINS W/ FOLIC ACID TABLET (FP) PO SCH (10:39)
--- NOTE | 2018-10-20 12:46 | DS ---
[facility] Detox Discharge Summary Admission Date: 10/17/18 Discharge Date: 10/20/18 - History Present History: Sedative Dependence Additional Comments: 48 years old male 2nd patient [facility] [place] detox admission was admitted on for benzo withdrawal sx management did well with valium detox regimen no complication through out the detox stay patient is alert oriented x 3 less tremor mild headache Cardiac: S1S2 Pulmonary: clear lung on auscultation Abdomen: soft no rebound none tender integument: wam dry Pertinent Past History: discuss regarding the dangerousness of methadone mixed with benzo - Physical Exam Results Vital Signs: Vital Signs Temperature 98.3 F 10/20/18 09:06 Pulse Rate 84 10/20/18 09:06 Respiratory Rate 18 10/20/18 09:06 Blood Pressure 109/78 10/20/18 09:06 O2 Sat by Pulse Oximetry (%) Pertinent Admission Physical Exam Findings: benzo withdrawal sx Laboratory Last Values WBC 5.7 K/mm3 (4.0-10.0) 10/18/18 07:30 RBC 3.51 M/mm3 (4.00-5.60) L 10/18/18 07:30 Hgb 11.0 GM/dL (11.7-16.9) L 10/18/18 07:30 Hct 32.2 % (35.4-49) L 10/18/18 07:30 MCV 91.7 fl (80-96) 10/18/18 07:30 MCH 31.4 pg (25.7-33.7) 10/18/18 07:30 MCHC 34.3 g/dl (32.0-35.9) 10/18/18 07:30 RDW 13.9 % (11.9-15.9) 10/18/18 07:30 Plt Count 248 K/MM3 (134-434) D 10/18/18 07:30 MPV 8.9 fl (7.5-11.1) 10/18/18 07:30 Sodium 143 mmol/L (136-145) 10/18/18 07:30 Potassium 3.7 mmol/L (3.5-5.1) 10/18/18 07:30 Chloride 106 mmol/L (98-107) 10/18/18 07:30 Carbon Dioxide 30 mmol/L (21-32) 10/18/18 07:30 Anion Gap 8 MMOL/L (8-16) 10/18/18 07:30 BUN 10.3 mg/dL (7-18) 10/18/18 07:30 Creatinine 0.7 mg/dL (0.55-1.3) 10/18/18 07:30 Est GFR (CKD-EPI)AfAm 127.53 10/18/18 07:30 Est GFR (CKD-EPI)NonAf 110.04 10/18/18 07:30 Random Glucose 121 mg/dL (74-106) H 10/18/18 07:30 Calcium 8.5 mg/dL (8.5-10.1) 10/18/18 07:30 Total Bilirubin 0.3 mg/dL (0.2-1) 10/18/18 07:30 AST 16 U/L (15-37) 10/18/18 07:30 ALT 25 U/L (13-61) 10/18/18 07:30 Alkaline Phosphatase 71 U/L (45-117) 10/18/18 07:30 Total Protein 6.0 g/dl (6.4-8.2) L 10/18/18 07:30 Albumin 2.8 g/dl (3.4-5.0) L 10/18/18 07:30 RPR Titer Nonreactive (NONREACTIVE) 10/18/18 07:30 lab noted random glucose elevation encourage follow up with primary care provider for fasting glucose - Treatment Hospital Course: Detox Protocol Followed, Detoxed Safely, Responded well, Discharged Condition Good, Rehab Referral Accepted Patient has Accepted a Rehab Referral to: [facility] - Medication Discharge Medications: Ambulatory Orders NK [No Known Home Medication] 10/17/18 - Diagnosis (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 Status: Chronic (2) Substance induced mood disorder Current Visit: Yes Status: Suspected (3) Nicotine dependence Current Visit: Yes Status: Acute Qualifiers: Nicotine product type: cigarettes Substance use status: in withdrawal Qualified Code(s): F17.213 - Nicotine dependence, cigarettes, with withdrawal (4) Sedative, hypnotic or anxiolytic dependence, uncomplicated Current Visit: Yes Status: Acute - AMA Did Patient Leave Against Medical Advice: No CIWA Score - CIWA Score Nausea/Vomitin-Mild Nausea/No Vomiting Muscle Tremors: 1-None Visible, but [place] Anxiety: 2 Agitation: 1-Slight > Activity Paroxysmal Sweats: No Perspiration Orientation: 0-Oriented Tacttile Disturbances: 0-None Auditory Disturbances: 0-None Visual Disturbances: 0-None Headache: 1-Very Mild CIWA-Ar Total Score: 6
== END 2018-10-20 12:45 | disposition home or self-care (01) | DRG 773 ==
LOC: YASAS 12:13 → Y3N 16:57
PROVIDERS: ADMIT Surgery; ATTEND Surgery
PROC: HZ2ZZZZ Detoxification Services for Substance Abuse Treatment (ICD-10-PCS; principal; 2018-10-17)
DX: F13.230 Sedative, hypnotic or anxiolytic dependence with withdrawal, uncomplicated (principal); F11.20 Opioid dependence, uncomplicated; F17.213 Nicotine dependence, cigarettes, with withdrawal; F19.24 Other psychoactive substance dependence with psychoactive substance-induced mood disorder; Z86.19 Personal history of other infectious and parasitic diseases; Z59.0 Homelessness
CPT/HCPCS: 36415; 80053; 85027; 86480; 86593; 93005; 93010

== ENCOUNTER 2019-02-27 15:22 | Inpatient (IN) | payer OTHER ==
[2019-02-27 17:56] VITALS: BMI 25.9
--- NOTE | 2019-02-27 21:19 | HP ---
CIWA Score Nausea/Vomitin (vomiting x 3) Muscle Tremors: 4-Moderate,w/Arms Extend Anxiety: 2 Agitation: 0-Normal Activity Paroxysmal Sweats: 2 Orientation: 3-Disoriented Date>2 days Tacttile Disturbances: 0-None Auditory Disturbances: 0-None Visual Disturbances: 0-None Headache: 3-Moderate CIWA-Ar Total Score: 17 - Admission Criteria OASAS Guidelines: Admission for Medically Managed Detox: Requires at least one of the followin. CIWA greater than 12 2. Seizures within the past 24 hours 3. Delirium tremens within the past 24 hours 4. Hallucinations within the past 24 hours 5. Acute intervention needed for co occurring medical disorder 6. Acute intervention needed for co occurring psychiatric disorder 7. Severe withdrawal that cannot be handled at a lower level of care (continued vomiting, continued diarrhea, abnormal vital signs) requiring intravenous medication and/or fluids 8. Admitting History and Physical - Smoking History Smoking history: Unknown if ever smoked Have you smoked in the past 12 months: No Aproximately how many cigarettes per day: 4 - Alcohol/Substance Use Hx Alcohol Use: Yes Admission ROS [facility] Chief Complaint: Xanax withdrawal symptoms Allergies/Adverse Reactions: Allergies Allergy/AdvReac Type Severity Reaction Status Date / Time Fish Containing Products Allergy Intermediate Hives Verified 02/27/19 17:43 tomato Allergy Intermediate Hives Verified 02/27/19 17:43 No Known Drug Allergies Allergy Verified 02/27/19 17:43 History of Present Illness: 48 years old male with a long history of Benzodiazepine dependence is seeking admission to detox. Patient reports multiple detox admissions, last at [facility] and reports that he relapsed 2 days post detox. He reports insignificant period of sobriety. He has medical history Hep. C ( treated in senior living 1997), peripheral neuropathy and arthritis. He denies psychiatric history. He is on Methadone 100mg tablet oral daily with [address] He denies suicidal ideatio at this time Confidential Drug Utilization Report Search Terms: brooks vanegas, 1970 Search Date: 02/27/2019 09:15:37 PM The Drug Utilization Report below displays all of the controlled substance prescriptions, if any, that your patient has filled in the last twelve months. The information displayed on this report is compiled from pharmacy submissions to the Department, and accurately reflects the information as submitted by the pharmacies. There are no results for the search terms that you entered. Exam Limitations: No Limitations - Ebola screening Have you traveled outside of the country in the last 21 days: No Have you had contact with anyone from an Ebola affected area: No - Review of Systems Constitutional: Chills, Malaise, Night Sweats, Changes in sleep EENT: reports: Sinus Pressure Respiratory: reports: No Symptoms reported Cardiac: reports: No Symptoms Reported GI: reports: Nausea, Poor Fluid Intake, Abdominal cramping Musculoskeletal: reports: No Symptoms Reported Integumentary: reports: [place] Neuro: reports: Headache, Tremors Endocrine: reports: No Symptoms Reported Hematology: reports: No Symptoms Reported Psychiatric: reports: No Sypmtoms Reported, Mood/Affect Appropiate Other Systems: Reviewed and Negative Patient History - Patient Medical History Hx Anemia: No Hx Asthma: No Hx Chronic Obstructive Pulmonary Disease (COPD): No Hx Cancer: No Hx Cardiac Disorders: No Hx Congestive Heart Failure: No Hx Hypertension: No Hx Hypercholesterolemia: No Hx Pacemaker: No Hx Seizures: No Hx Dementia: No Hx Diabetes: No Hx Gastrointestinal Disorders: No Hx Liver Disease: No Hx Genitourinary Disorders: No Hx Sexually Transmitted Disorders: No Hx Renal Disease (ESRD): No Hx Thyroid Disease: No Hx Human Immunodeficiency Virus (HIV): No Hx Hepatitis C: Yes (Treated) Hx Depression: No Hx Suicide Attempt: No Hx Bipolar Disorder: No Hx Schizophrenia: No Other Medical History: Peripheral neuropathy, Arthritis - Not on medication - Patient Surgical History Past Surgical History: No Hx Neurologic Surgery: No Hx Cataract Extraction: No Hx Cardiac Surgery: No Hx Lung Surgery: No Hx Breast Surgery: No Hx Breast Biopsy: No Hx Abdominal Surgery: No Hx Appendectomy: No Hx Cholecystectomy: No Hx Genitourinary Surgery: No Hx Section: No Hx Orthopedic Surgery: No Anesthesia Reaction: No - PPD History Previous Implant?: No Implanted On Prior R Admission?: No PPD to be Administered?: No - Reproductive History Patient is a Female of Child Bearing Age (11 -55 yrs old): No (male) - Smoking Cessation Smoking history: Unknown if ever smoked Have you smoked in the past 12 months: No Aproximately how many cigarettes per day: 4 Cigars Per Day: 0 Hx Chewing Tobacco Use: No Initiated information on smoking cessation: Yes 'Breaking Loose' booklet given: 02/27/19 - Substance & Tx. History Hx Alcohol Use: No Hx Substance Use: Yes Substance Use Type: Opiates, Tranquilizers Hx Substance Use Treatment: Yes ([facility]) - Substances abused Alprazolam (Xanax) Substance route: Oral Frequency: Daily Amount used: 3-4 pills Age of first use: 45 Date of last use: 02/27/19 Benzodiazepine (Klonopin) Substance route: Oral Frequency: Daily Amount used: (7) 2mg pills Age of first use: 28 Date of last use: 10/16/18 Admission Physical Exam [facility] - Vital Signs Vital Signs: Vital Signs - 24 hr 02/27/19 17:38 Temperature 97.3 F L Pulse Rate 78 Respiratory 20 Rate Blood Pressure 105/70 - Physical General Appearance: Yes: Moderate Distress, Tremorous, Irritable, Sweating HEENTM: Yes: Sinus Tenderness Respiratory: Yes: Lungs Clear, Normal Breath Sounds, No Respiratory Distress Neck: Yes: Supple Breast: Yes: Breast Exam Deferred Cardiology: Yes: Regular Rhythm, Regular Rate Abdominal: Yes: Normal Bowel Sounds, Soft Genitourinary: Yes: Within Normal Limits Back: Yes: Normal Inspection Musculoskeletal: Yes: Within Normal Limits Neurological: Yes: Within Normal Limits Integumentary: Yes: Warm Lymphatic: Yes: Within Normal Limits - Diagnostic (1) Arthritis Current Visit: Yes Status: Chronic (2) Peripheral neuropathy Current Visit: Yes Status: Chronic Qualifiers: Peripheral neuropathy type: polyneuropathy, unspecified Qualified Code(s): G62.9 - Polyneuropathy, unspecified (3) Nicotine dependence Current Visit: Yes Status: Chronic Qualifiers: Nicotine product type: cigarettes Substance use status: uncomplicated Qualified Code(s): F17.210 - Nicotine dependence, cigarettes, uncomplicated (4) Sedative, hypnotic or anxiolytic dependence, uncomplicated Current Visit: Yes Status: Acute (5) Methadone maintenance therapy patient Current Visit: Yes Status: Chronic Cleared for Admission [facility] - Detox or Rehab [facility] Level of Care: Medically Managed Detox Regimen/Protocol: Valium Claeared for Rehab Admission: No Breathalyzer - Breathalyzer Breathalyzer: 0 Urine Drug Screen - Test Device Lot number: [id number] Expiration date: 11/21/20 - Control Is test valid?: Yes - Results Drug screen NEGATIVE: No Urine drug screen results: THC-Marijuana, MTD-Methadone Inpatient Rehab Admission - Rehab Decision to Admit Inpatient rehab admission?: No
[2019-02-27] MEDS ORDERED: IBUPROFEN 400 MG TABLET (FP) PO PRN (21:36)
[2019-02-27] MEDS ORDERED: MAGNESIUM HYDROX 2400MG/30ML ORAL SUSPENSION 30 ML CUP PO PRN (21:36)
[2019-02-27] MEDS ORDERED: hydrOXYzine PAMOATE 25 MG CAPSULE (FP) PO PRN (21:36)
[2019-02-27] MEDS ORDERED: MELATONIN 5 MG TABLETS PO PRN (21:36)
[2019-02-27] MEDS ORDERED: MENTHOL/PHENOL 1 EACH UD MM PRN (21:36)
[2019-02-27] MEDS ORDERED: MAGNESIUM CITRATE 300 ML BOTTLE PO PRN (21:36)
[2019-02-27] MEDS ORDERED: METHOCARBAMOL 500 MG TABLET PO PRN (21:36)
[2019-02-27] MEDS ORDERED: NICOTINE POLACRILEX 2 MG GUM BUC PRN (21:36)
[2019-02-27] MEDS ORDERED: ACETAMINOPHEN 325 MG TABLET (FP) PO PRN ×2 (21:36)
[2019-02-27] MEDS ORDERED: MAG HYDROX/AL HYDROX/SIMETH 30 ML UNIT-DOSE CUP PO PRN (21:36)
[2019-02-27] MEDS ORDERED: BISMUTH SUBSALICYLATE 524 MG/30 ML UD PO PRN (21:36)
[2019-02-27] MEDS ORDERED: diazePAM 5 MG TABLET PO PRN (21:36)
[2019-02-27] MEDS: THIAMINE HCL 100 MG TABLET (FP) PO SCH (23:06)
[2019-02-27] MEDS: diazePAM 5 MG TABLET PO SCH (23:06)
[2019-02-28] MEDS: diazePAM 5 MG TABLET PO SCH ×3 (05:33→22:34)
--- NOTE | 2019-02-28 09:26 | EKG ---
Test Reason : Blood Pressure : / mmHG Vent. Rate : 085 BPM Atrial Rate : 085 BPM P-R Int : 154 ms QRS Dur : 090 ms QT Int : 402 ms P-R-T Axes : 055 066 066 degrees QTc Int : 478 ms NORMAL SINUS RHYTHM NORMAL ECG WHEN COMPARED WITH ECG OF 27-FEB-2019 23:04, NO SIGNIFICANT CHANGE WAS FOUND Confirmed by Yazan Blanco MD ([id number]) on 02/28/2019 9:26:14 AM Referred By: Confirmed By:Yazan Blanco MD
--- NOTE | 2019-02-28 09:26 | EKG ---
Test Reason : Blood Pressure : / mmHG Vent. Rate : 089 BPM Atrial Rate : 089 BPM P-R Int : 150 ms QRS Dur : 082 ms QT Int : 412 ms P-R-T Axes : 046 065 073 degrees QTc Int : 501 ms NORMAL SINUS RHYTHM PROLONGED QT ABNORMAL ECG WHEN COMPARED WITH ECG OF 17-OCT-2018 21:54, NO SIGNIFICANT CHANGE WAS FOUND Confirmed by Yazan Blanco MD ([id number]) on 02/28/2019 9:26:17 AM Referred By: Confirmed By:Yazan Blanco MD
[2019-02-28 09:40] LABS: HEMATOCRIT 37.6 % (35.4-49); HEMOGLOBIN 12.7 GM/dL (11.7-16.9); MCH 31.1 pg (25.7-33.7); MCHC 33.7 g/dl (32.0-35.9); MEAN CELL VOLUME 92.5 fl (80-96); MEAN PLT VOLUME 9.1 fl (7.5-11.1); PLATELET COUNT 174 K/MM3 (134-434); RBC 4.07 M/mm3 (4.00-5.60); WHITE BLOOD COUNT 5.8 K/mm3 (4.0-10.0)
[2019-02-28] MEDS ORDERED: METHADONE HCL 40 MG DISPERSABLE TABLET ONE (09:49)
[2019-02-28] MEDS ORDERED: METHADONE HCL 10 MG TABLET ONE (09:49)
[2019-02-28] MEDS: PRENATAL VITAMINS W/ FOLIC ACID TABLET (FP) PO SCH (09:58)
[2019-02-28] MEDS: NICOTINE 14 MG/24 HOURS TOPICAL PATCH TD SCH (10:00)
[2019-02-28] MEDS ORDERED: METHADONE HCL 10 MG TABLET PO ONE (10:00)
[2019-02-28] MEDS ORDERED: METHADONE 80 MG, METHADONE 20 MG PO ONE (10:00)
--- NOTE | 2019-02-28 10:52 | PN ---
S CIWA - CIWA Score Nausea/Vomitin-Mild Nausea/No Vomiting Muscle Tremors: 3 Anxiety: 3 Agitation: 1-Slight > Activity Paroxysmal Sweats: 2 Orientation: 1-Uncertain about Date Tacttile Disturbances: 0-None Auditory Disturbances: 0-None Visual Disturbances: 0-None Headache: 1-Very Mild CIWA-Ar Total Score: 12 S Progress Note (SOAP) Subjective: 48 years old male admitted on 02/27/19 for benzo withdrawal sx management treating with valium detox regimen received methadone 100 mg po today ekg qtc 478 feeling better ate breakfast ambulating on hallway social with peers in day room Objective: 02/28/19 10:51 Vital Signs Temperature 98 F 02/28/19 09:11 Pulse Rate 87 02/28/19 09:11 Respiratory Rate 20 02/28/19 09:11 Blood Pressure 100/60 02/28/19 09:11 O2 Sat by Pulse Oximetry (%) Laboratory Last Values WBC 5.8 K/mm3 (4.0-10.0) 02/28/19 08:00 RBC 4.07 M/mm3 (4.00-5.60) 02/28/19 08:00 Hgb 12.7 GM/dL (11.7-16.9) 02/28/19 08:00 Hct 37.6 % (35.4-49) D 02/28/19 08:00 MCV 92.5 fl (80-96) 02/28/19 08:00 MCH 31.1 pg (25.7-33.7) 02/28/19 08:00 MCHC 33.7 g/dl (32.0-35.9) 02/28/19 08:00 RDW 15.0 % (11.9-15.9) 02/28/19 08:00 Plt Count 174 K/MM3 (134-434) D 02/28/19 08:00 MPV 9.1 fl (7.5-11.1) 02/28/19 08:00 lab noted Assessment: 02/28/19 10:52 benzo withdrawal Plan: valium regimen
[2019-02-28 11:34] LABS: ALBUMIN 3.5 g/dl (3.4-5.0); BILIRUBIN,TOTAL 0.7 mg/dL (0.2-1); BLOOD UREA NITROGEN 10.1 mg/dL (7-18); CALCIUM 8.5 mg/dL (8.5-10.1); POTASSIUM 3.6 mmol/L (3.5-5.1); TOT PROT 6.8 g/dl (6.4-8.2)
[2019-02-28] MEDS: THIAMINE HCL 100 MG TABLET (FP) PO SCH (22:34)
[2019-03-01] MEDS ORDERED: METHADONE HCL 10 MG TABLET ONE (04:24)
[2019-03-01] MEDS ORDERED: METHADONE HCL 40 MG DISPERSABLE TABLET ONE (04:25)
[2019-03-01] MEDS ORDERED: METHADONE HCL 10 MG TABLET PO SCH (06:00)
[2019-03-01] MEDS: diazePAM 5 MG TABLET PO SCH ×2 (06:11→17:41)
[2019-03-01] MEDS: METHADONE 80 MG, METHADONE 20 MG PO SCH (06:12)
[2019-03-01] MEDS: PRENATAL VITAMINS W/ FOLIC ACID TABLET (FP) PO SCH (09:45)
[2019-03-01] MEDS: NICOTINE 14 MG/24 HOURS TOPICAL PATCH TD SCH (09:46)
--- NOTE | 2019-03-01 10:50 | PN ---
S CIWA - CIWA Score Nausea/Vomitin-No Nausea/No Vomiting Muscle Tremors: 2 Anxiety: 3 Agitation: 1-Slight > Activity Paroxysmal Sweats: 1-Minimal Palms Moist Orientation: 0-Oriented Tacttile Disturbances: 0-None Auditory Disturbances: 0-None Visual Disturbances: 0-None Headache: 0-None Present CIWA-Ar Total Score: 7 BHS Progress Note (SOAP) Subjective: 48 years old male admitted on 02/27/19 for benzo withdrawal sx management treating with valium detox regimen feeling better today less anxious slept through the night patient may return to methadone program for prolong qtc follow up Objective: 03/01/19 10:49 Vital Signs Temperature 97.4 F L 03/01/19 09:19 Pulse Rate 73 03/01/19 09:19 Respiratory Rate 18 03/01/19 09:19 Blood Pressure 107/68 03/01/19 09:19 O2 Sat by Pulse Oximetry (%) Laboratory Last Values WBC 5.8 K/mm3 (4.0-10.0) 02/28/19 08:00 RBC 4.07 M/mm3 (4.00-5.60) 02/28/19 08:00 Hgb 12.7 GM/dL (11.7-16.9) 02/28/19 08:00 Hct 37.6 % (35.4-49) D 02/28/19 08:00 MCV 92.5 fl (80-96) 02/28/19 08:00 MCH 31.1 pg (25.7-33.7) 02/28/19 08:00 MCHC 33.7 g/dl (32.0-35.9) 02/28/19 08:00 RDW 15.0 % (11.9-15.9) 02/28/19 08:00 Plt Count 174 K/MM3 (134-434) D 02/28/19 08:00 MPV 9.1 fl (7.5-11.1) 02/28/19 08:00 Sodium 141 mmol/L (136-145) 02/28/19 08:00 Potassium 3.6 mmol/L (3.5-5.1) 02/28/19 08:00 Chloride 104 mmol/L (98-107) 02/28/19 08:00 Carbon Dioxide 27 mmol/L (21-32) 02/28/19 08:00 Anion Gap 9 MMOL/L (8-16) 02/28/19 08:00 BUN 10.1 mg/dL (7-18) 02/28/19 08:00 Creatinine 1.0 mg/dL (0.55-1.3) 02/28/19 08:00 Est GFR (CKD-EPI)AfAm 101.26 02/28/19 08:00 Est GFR (CKD-EPI)NonAf 87.37 02/28/19 08:00 Random Glucose 118 mg/dL (74-106) H 02/28/19 08:00 Calcium 8.5 mg/dL (8.5-10.1) 02/28/19 08:00 Total Bilirubin 0.7 mg/dL (0.2-1) 02/28/19 08:00 AST 68 U/L (15-37) H 02/28/19 08:00 ALT 64 U/L (13-61) H 02/28/19 08:00 Alkaline Phosphatase 74 U/L (45-117) 02/28/19 08:00 Total Protein 6.8 g/dl (6.4-8.2) 02/28/19 08:00 Albumin 3.5 g/dl (3.4-5.0) 02/28/19 08:00 RPR Titer Nonreactive (NONREACTIVE) 02/28/19 08:00 lab noted Assessment: 03/01/19 10:50 benzo withdrawal Plan: valium regimen
[2019-03-01] MEDS: THIAMINE HCL 100 MG TABLET (FP) PO SCH (22:49)
[2019-03-02] MEDS ORDERED: METHADONE HCL 40 MG DISPERSABLE TABLET ONE (04:06)
[2019-03-02] MEDS ORDERED: METHADONE HCL 10 MG TABLET ONE (04:06)
[2019-03-02] MEDS: METHADONE 80 MG, METHADONE 20 MG PO SCH (05:26)
[2019-03-02] MEDS ORDERED: diazePAM 5 MG TABLET PO ONE (06:00)
[2019-03-02 09:32] VITALS: BP 101/62; PULSE 68; TEMP 97.6
[2019-03-02] MEDS: NICOTINE 14 MG/24 HOURS TOPICAL PATCH TD SCH (10:18)
[2019-03-02] MEDS: PRENATAL VITAMINS W/ FOLIC ACID TABLET (FP) PO SCH (10:18)
--- NOTE | 2019-03-02 11:05 | DS ---
[facility] Detox Discharge Summary Admission Date: 02/27/19 Discharge Date: 03/02/19 - History Present History: Sedative Dependence Additional Comments: 48 years old male admitted on 02/27/19 for benzo withdrawal sx management treated with valium detox regimen patient is well tolerated and completed the regimen alert oriented x 3 cardiac s1s2 regular rate rhythm respiratory clear lungs bilaterally on auscultation skin warm and dry - Physical Exam Results Vital Signs: Vital Signs Temperature 97.6 F 03/02/19 09:31 Pulse Rate 68 03/02/19 09:31 Respiratory Rate 18 03/02/19 09:31 Blood Pressure 101/62 03/02/19 09:31 O2 Sat by Pulse Oximetry (%) Pertinent Admission Physical Exam Findings: benzo withdrawal Vital Signs Temperature 97.6 F 03/02/19 09:31 Pulse Rate 68 03/02/19 09:31 Respiratory Rate 18 03/02/19 09:31 Blood Pressure 101/62 03/02/19 09:31 O2 Sat by Pulse Oximetry (%) Laboratory Last Values WBC 5.8 K/mm3 (4.0-10.0) 02/28/19 08:00 RBC 4.07 M/mm3 (4.00-5.60) 02/28/19 08:00 Hgb 12.7 GM/dL (11.7-16.9) 02/28/19 08:00 Hct 37.6 % (35.4-49) D 02/28/19 08:00 MCV 92.5 fl (80-96) 02/28/19 08:00 MCH 31.1 pg (25.7-33.7) 02/28/19 08:00 MCHC 33.7 g/dl (32.0-35.9) 02/28/19 08:00 RDW 15.0 % (11.9-15.9) 02/28/19 08:00 Plt Count 174 K/MM3 (134-434) D 02/28/19 08:00 MPV 9.1 fl (7.5-11.1) 02/28/19 08:00 Sodium 141 mmol/L (136-145) 02/28/19 08:00 Potassium 3.6 mmol/L (3.5-5.1) 02/28/19 08:00 Chloride 104 mmol/L (98-107) 02/28/19 08:00 Carbon Dioxide 27 mmol/L (21-32) 02/28/19 08:00 Anion Gap 9 MMOL/L (8-16) 02/28/19 08:00 BUN 10.1 mg/dL (7-18) 02/28/19 08:00 Creatinine 1.0 mg/dL (0.55-1.3) 02/28/19 08:00 Est GFR (CKD-EPI)AfAm 101.26 02/28/19 08:00 Est GFR (CKD-EPI)NonAf 87.37 02/28/19 08:00 Random Glucose 118 mg/dL (74-106) H 02/28/19 08:00 Calcium 8.5 mg/dL (8.5-10.1) 02/28/19 08:00 Total Bilirubin 0.7 mg/dL (0.2-1) 02/28/19 08:00 AST 68 U/L (15-37) H 02/28/19 08:00 ALT 64 U/L (13-61) H 02/28/19 08:00 Alkaline Phosphatase 74 U/L (45-117) 02/28/19 08:00 Total Protein 6.8 g/dl (6.4-8.2) 02/28/19 08:00 Albumin 3.5 g/dl (3.4-5.0) 02/28/19 08:00 RPR Titer Nonreactive (NONREACTIVE) 02/28/19 08:00 lab noted - Treatment Hospital Course: Detox Protocol Followed, Detoxed Safely, Responded well, Discharged Condition Good, Rehab Referral Accepted Patient has [facility]ed [facility] - Medication Discharge Medications: Ambulatory Orders Multivitamins [Multivit ([facility] Formulary)] 1 tab PO DAILY 02/27/19 - Diagnosis (1) Sedative, hypnotic or anxiolytic dependence, uncomplicated Status: Acute (2) Methadone maintenance therapy patient Status: Chronic (3) Nicotine dependence Status: Acute Qualifiers: Nicotine product type: cigarettes Substance use status: in withdrawal Qualified Code(s): F17.213 - Nicotine dependence, cigarettes, with withdrawal (4) Substance induced mood disorder Status: Suspected - AMA Did Patient Leave Against Medical Advice: No CIWA Score - CIWA Score Nausea/Vomitin-No Nausea/No Vomiting Muscle Tremors: 1-None Visible, but [place] Anxiety: 2 Agitation: 0-Normal Activity Paroxysmal Sweats: 1-Minimal Palms Moist Orientation: 0-Oriented Tacttile Disturbances: 0-None Auditory Disturbances: 0-None Visual Disturbances: 0-None Headache: 0-None Present CIWA-Ar Total Score: 4
== END 2019-03-02 11:39 | disposition other institution (70) | DRG 773 ==
LOC: YASAS 15:22 → Y3N 22:34
PROVIDERS: ADMIT Allergy & Immunology; ATTEND Allergy & Immunology
PROC: HZ2ZZZZ Detoxification Services for Substance Abuse Treatment (ICD-10-PCS; principal; 2019-02-27)
DX: F13.230 Sedative, hypnotic or anxiolytic dependence with withdrawal, uncomplicated (principal); F11.20 Opioid dependence, uncomplicated; F17.213 Nicotine dependence, cigarettes, with withdrawal; F19.24 Other psychoactive substance dependence with psychoactive substance-induced mood disorder; G62.9 Polyneuropathy, unspecified; M12.9 Arthropathy, unspecified; Z91.013 Allergy to seafood; Z91.018 Allergy to other foods
CPT/HCPCS: 36415; 71046-TC-FY; 80053; 85027; 86593; 93005; 93010

== ENCOUNTER 2019-03-02 11:42 | Inpatient (IN) | payer OTHER ==
--- NOTE | 2019-03-02 13:59 | HP ---
[facility] Rehab Assess/Revision - Admission History Admitted to Rehab from: [facility] Date of Admission to Rehab: 03/02/19 - Vital signs Vital Signs: Vital Signs Period Temp Pulse Resp BP Sys/Crow Pulse Ox Last 24 Hr 98.1 F 78 18 129/84 - Findings Detox History & Physical reviewed: Yes Concur with findings: Yes Comments/Additional Findings: transferred from detox to rehab admission as per protocol Inpatient Rehab Admission - Rehab Decision to Admit Inpatient rehab admission?: Yes - Initial Determination Are CD services needed?: Yes Free of communicable disease: Yes Not in need of hospitalization: Yes - Rehab Admission Criteria Previous failed treatment: Yes Poor recovery environment: Yes Comorbidities: Yes Lacks judgement: Yes Patient is meeting Inpatient Rehab admission criteria:: Yes
[2019-03-02] MEDS ORDERED: LOPERAMIDE HCL 2 MG CAPSULE PO PRN (14:00)
[2019-03-02] MEDS ORDERED: MENTHOL/PHENOL 1 EACH UD MM PRN (14:00)
[2019-03-02] MEDS ORDERED: NICOTINE POLACRILEX 2 MG GUM BUC PRN (14:00)
[2019-03-02] MEDS ORDERED: MAGNESIUM HYDROX 2400MG/30ML ORAL SUSPENSION 30 ML CUP PO PRN (14:00)
[2019-03-02] MEDS ORDERED: MAG HYDROX/AL HYDROX/SIMETH 30 ML UNIT-DOSE CUP PO PRN (14:00)
[2019-03-02] MEDS ORDERED: MAGNESIUM CITRATE 300 ML BOTTLE PO PRN (14:00)
[2019-03-02] MEDS ORDERED: IBUPROFEN 400 MG TABLET (FP) PO PRN (14:00)
[2019-03-02] MEDS ORDERED: guaiFENesin 200 MG/10 ML 10 ML UNIT-DOSE CUPS PO PRN (14:00)
[2019-03-02] MEDS ORDERED: ACETAMINOPHEN 325 MG TABLET (FP) PO PRN (14:00)
--- NOTE | 2019-03-02 14:56 | PN ---
[facility] Progress Note Note: Pt is a 48 y/o male with a hx of JOSH-xanax/klonopin admitted to [facility] today from [address] [place] [address] detox. Pt is on MMTP with 100 mg po daily [place] last dose today [place] [address] [place] [address]. Pt reports he has a doctor in his Methadone program only. PMHx of Hep C and Peripheral Neuropathy and Arthritis. Denies psych Hx. Vital Signs - 24 hr 03/02/19 11:51 Temperature 98.1 F Pulse Rate 78 Respiratory 18 Rate Blood Pressure 129/84 Alert o x 3,denies s/h/i nad oob ambulating with steady gait extremities/skin:no edema,skin intact;tatoos on both LE. A/P new rehab pt s/p detox Maintain safety continue rehab Meds reviewed. increase po fluids
[2019-03-02] MEDS: MELATONIN 5 MG TABLETS PO PRN (21:12)
[2019-03-02] MEDS: THIAMINE HCL 100 MG TABLET (FP) PO SCH (21:12)
[2019-03-03] MEDS ORDERED: METHADONE HCL 10 MG TABLET ONE (05:36)
[2019-03-03] MEDS ORDERED: METHADONE HCL 40 MG DISPERSABLE TABLET ONE (05:36)
[2019-03-03] MEDS ORDERED: METHADONE HCL 10 MG TABLET PO SCH (06:00)
[2019-03-03] MEDS: METHADONE 80 MG, METHADONE 20 MG PO SCH (06:09)
[2019-03-03] MEDS: NICOTINE 14 MG/24 HOURS TOPICAL PATCH TD SCH (09:51)
[2019-03-03] MEDS: PRENATAL VITAMINS W/ FOLIC ACID TABLET (FP) PO SCH (09:51)
[2019-03-03] MEDS ORDERED: ROCURONIUM BROMIDE 50 MG/5 ML SYRINGE ONE (13:20)
[2019-03-03] MEDS: THIAMINE HCL 100 MG TABLET (FP) PO SCH (21:42)
[2019-03-04] MEDS ORDERED: METHADONE HCL 10 MG TABLET ONE ×2 (03:48→08:30)
[2019-03-04] MEDS ORDERED: METHADONE HCL 40 MG DISPERSABLE TABLET ONE ×2 (03:48→08:30)
[2019-03-04] MEDS: METHADONE 80 MG, METHADONE 20 MG PO SCH ×2 (07:14→09:23)
[2019-03-04] MEDS: PRENATAL VITAMINS W/ FOLIC ACID TABLET (FP) PO SCH (09:23)
[2019-03-04] MEDS: NICOTINE 14 MG/24 HOURS TOPICAL PATCH TD SCH (09:26)
[2019-03-04] MEDS: THIAMINE HCL 100 MG TABLET (FP) PO SCH (21:13)
[2019-03-04] MEDS: MELATONIN 5 MG TABLETS PO PRN (21:13)
[2019-03-05] MEDS ORDERED: METHADONE HCL 10 MG TABLET ONE (08:22)
[2019-03-05] MEDS ORDERED: METHADONE HCL 40 MG DISPERSABLE TABLET ONE (08:22)
[2019-03-05] MEDS: PRENATAL VITAMINS W/ FOLIC ACID TABLET (FP) PO SCH (09:47)
[2019-03-05] MEDS: METHADONE 80 MG, METHADONE 20 MG PO SCH (09:48)
[2019-03-05] MEDS: NICOTINE 14 MG/24 HOURS TOPICAL PATCH TD SCH (09:49)
[2019-03-05] MEDS: THIAMINE HCL 100 MG TABLET (FP) PO SCH (21:12)
[2019-03-05] MEDS: MELATONIN 5 MG TABLETS PO PRN (21:12)
[2019-03-06] MEDS: PRENATAL VITAMINS W/ FOLIC ACID TABLET (FP) PO SCH (09:46)
[2019-03-06] MEDS: NICOTINE 14 MG/24 HOURS TOPICAL PATCH TD SCH (09:46)
[2019-03-06] MEDS: METHADONE 80 MG, METHADONE 20 MG PO SCH (09:47)
[2019-03-06] MEDS ORDERED: METHADONE HCL 40 MG DISPERSABLE TABLET ONE (09:47)
[2019-03-06] MEDS ORDERED: METHADONE HCL 10 MG TABLET ONE (09:47)
[2019-03-06] MEDS: THIAMINE HCL 100 MG TABLET (FP) PO SCH (21:38)
[2019-03-06] MEDS: MELATONIN 5 MG TABLETS PO PRN (21:39)
[2019-03-07] MEDS ORDERED: METHADONE HCL 10 MG TABLET ONE (08:56)
[2019-03-07] MEDS ORDERED: METHADONE HCL 40 MG DISPERSABLE TABLET ONE (08:57)
[2019-03-07] MEDS: METHADONE 80 MG, METHADONE 20 MG PO SCH (09:50)
[2019-03-07] MEDS: PRENATAL VITAMINS W/ FOLIC ACID TABLET (FP) PO SCH (09:50)
[2019-03-07] MEDS: NICOTINE 14 MG/24 HOURS TOPICAL PATCH TD SCH (09:52)
[2019-03-07] MEDS: THIAMINE HCL 100 MG TABLET (FP) PO SCH (21:04)
[2019-03-07] MEDS: MELATONIN 5 MG TABLETS PO PRN (21:04)
[2019-03-08] MEDS ORDERED: METHADONE HCL 10 MG TABLET ONE (09:41)
[2019-03-08] MEDS ORDERED: METHADONE HCL 40 MG DISPERSABLE TABLET ONE (09:41)
[2019-03-08] MEDS: PRENATAL VITAMINS W/ FOLIC ACID TABLET (FP) PO SCH (09:42)
[2019-03-08] MEDS: METHADONE 80 MG, METHADONE 20 MG PO SCH (09:42)
[2019-03-08] MEDS: NICOTINE 14 MG/24 HOURS TOPICAL PATCH TD SCH (09:43)
[2019-03-08] MEDS: MELATONIN 5 MG TABLETS PO PRN (21:29)
[2019-03-08] MEDS: THIAMINE HCL 100 MG TABLET (FP) PO SCH (21:29)
[2019-03-09] MEDS ORDERED: METHADONE HCL 40 MG DISPERSABLE TABLET ONE (08:54)
[2019-03-09] MEDS ORDERED: METHADONE HCL 10 MG TABLET ONE (08:54)
[2019-03-09] MEDS: PRENATAL VITAMINS W/ FOLIC ACID TABLET (FP) PO SCH (09:42)
[2019-03-09] MEDS ORDERED: METHADONE HCL 10 MG TABLET PO ONE (09:46)
[2019-03-09] MEDS ORDERED: METHADONE 80 MG, METHADONE 20 MG PO ONE (09:50)
[2019-03-09] MEDS: NICOTINE 14 MG/24 HOURS TOPICAL PATCH TD SCH (09:59)
[2019-03-09] MEDS: THIAMINE HCL 100 MG TABLET (FP) PO SCH (21:07)
[2019-03-09] MEDS: MELATONIN 5 MG TABLETS PO PRN (21:07)
[2019-03-10] MEDS ORDERED: METHADONE 80 MG, METHADONE 20 MG PO SCH (06:00)
[2019-03-10] MEDS ORDERED: METHADONE HCL 10 MG TABLET PO SCH (06:00)
[2019-03-10] MEDS ORDERED: METHADONE HCL 10 MG TABLET ONE (09:50)
[2019-03-10] MEDS ORDERED: METHADONE HCL 40 MG DISPERSABLE TABLET ONE (09:50)
[2019-03-10] MEDS: PRENATAL VITAMINS W/ FOLIC ACID TABLET (FP) PO SCH (09:51)
[2019-03-10] MEDS: METHADONE 80 MG, METHADONE 20 MG PO SCH (09:51)
[2019-03-10] MEDS: NICOTINE 14 MG/24 HOURS TOPICAL PATCH TD SCH (09:52)
[2019-03-10] MEDS: MELATONIN 5 MG TABLETS PO PRN (21:26)
[2019-03-10] MEDS: THIAMINE HCL 100 MG TABLET (FP) PO SCH (21:26)
[2019-03-11] MEDS: PRENATAL VITAMINS W/ FOLIC ACID TABLET (FP) PO SCH (10:07)
[2019-03-11] MEDS ORDERED: METHADONE HCL 10 MG TABLET ONE (10:08)
[2019-03-11] MEDS ORDERED: METHADONE HCL 40 MG DISPERSABLE TABLET ONE (10:08)
[2019-03-11] MEDS: METHADONE 80 MG, METHADONE 20 MG PO SCH (10:10)
[2019-03-11] MEDS: NICOTINE 14 MG/24 HOURS TOPICAL PATCH TD SCH (10:10)
[2019-03-11] MEDS: THIAMINE HCL 100 MG TABLET (FP) PO SCH (21:27)
[2019-03-11] MEDS: MELATONIN 5 MG TABLETS PO PRN (21:27)
[2019-03-12] MEDS: PRENATAL VITAMINS W/ FOLIC ACID TABLET (FP) PO SCH (09:53)
[2019-03-12] MEDS ORDERED: METHADONE HCL 10 MG TABLET ONE (09:53)
[2019-03-12] MEDS ORDERED: METHADONE HCL 40 MG DISPERSABLE TABLET ONE (09:54)
[2019-03-12] MEDS: METHADONE 80 MG, METHADONE 20 MG PO SCH (09:54)
[2019-03-12] MEDS: NICOTINE 14 MG/24 HOURS TOPICAL PATCH TD SCH (09:55)
[2019-03-12] MEDS: THIAMINE HCL 100 MG TABLET (FP) PO SCH (21:47)
[2019-03-12] MEDS: MELATONIN 5 MG TABLETS PO PRN (21:47)
[2019-03-13] MEDS ORDERED: METHADONE HCL 10 MG TABLET ONE (09:51)
[2019-03-13] MEDS ORDERED: METHADONE HCL 40 MG DISPERSABLE TABLET ONE (09:51)
[2019-03-13] MEDS: METHADONE 80 MG, METHADONE 20 MG PO SCH (09:52)
[2019-03-13] MEDS: PRENATAL VITAMINS W/ FOLIC ACID TABLET (FP) PO SCH (09:52)
[2019-03-13] MEDS: NICOTINE 14 MG/24 HOURS TOPICAL PATCH TD SCH (09:53)
[2019-03-13] MEDS: THIAMINE HCL 100 MG TABLET (FP) PO SCH (21:48)
[2019-03-14] MEDS ORDERED: METHADONE HCL 10 MG TABLET ONE (08:47)
[2019-03-14] MEDS ORDERED: METHADONE HCL 40 MG DISPERSABLE TABLET ONE (08:47)
[2019-03-14] MEDS: NICOTINE 14 MG/24 HOURS TOPICAL PATCH TD SCH (09:45)
[2019-03-14] MEDS: PRENATAL VITAMINS W/ FOLIC ACID TABLET (FP) PO SCH (09:45)
[2019-03-14] MEDS: METHADONE 80 MG, METHADONE 20 MG PO SCH (09:45)
[2019-03-14] MEDS: MELATONIN 5 MG TABLETS PO PRN (21:36)
[2019-03-14] MEDS: THIAMINE HCL 100 MG TABLET (FP) PO SCH (21:36)
[2019-03-15] MEDS ORDERED: METHADONE HCL 40 MG DISPERSABLE TABLET ONE (09:22)
[2019-03-15] MEDS ORDERED: METHADONE HCL 10 MG TABLET ONE (09:22)
[2019-03-15] MEDS: PRENATAL VITAMINS W/ FOLIC ACID TABLET (FP) PO SCH (09:23)
[2019-03-15] MEDS: METHADONE 80 MG, METHADONE 20 MG PO SCH (09:23)
[2019-03-15] MEDS: NICOTINE 14 MG/24 HOURS TOPICAL PATCH TD SCH (09:24)
[2019-03-15] MEDS: THIAMINE HCL 100 MG TABLET (FP) PO SCH (21:19)
[2019-03-15] MEDS: MELATONIN 5 MG TABLETS PO PRN (21:19)
[2019-03-16] MEDS ORDERED: METHADONE HCL 40 MG DISPERSABLE TABLET ONE (09:33)
[2019-03-16] MEDS: PRENATAL VITAMINS W/ FOLIC ACID TABLET (FP) PO SCH (09:33)
[2019-03-16] MEDS ORDERED: METHADONE HCL 10 MG TABLET ONE (09:33)
[2019-03-16] MEDS: NICOTINE 14 MG/24 HOURS TOPICAL PATCH TD SCH (09:36)
[2019-03-16] MEDS ORDERED: METHADONE HCL 10 MG TABLET PO ONE (11:03)
[2019-03-16] MEDS ORDERED: METHADONE 80 MG, METHADONE 20 MG PO ONE (11:15)
[2019-03-16] MEDS: THIAMINE HCL 100 MG TABLET (FP) PO SCH (21:30)
[2019-03-16] MEDS: MELATONIN 5 MG TABLETS PO PRN (21:30)
[2019-03-17] MEDS ORDERED: METHADONE HCL 10 MG TABLET ONE (09:38)
[2019-03-17] MEDS ORDERED: METHADONE HCL 40 MG DISPERSABLE TABLET ONE (09:38)
[2019-03-17] MEDS: METHADONE 80 MG, METHADONE 20 MG PO SCH (09:39)
[2019-03-17] MEDS: PRENATAL VITAMINS W/ FOLIC ACID TABLET (FP) PO SCH (09:39)
[2019-03-17] MEDS: NICOTINE 14 MG/24 HOURS TOPICAL PATCH TD SCH (09:40)
[2019-03-17] MEDS ORDERED: METHADONE HCL 10 MG TABLET PO SCH (10:00)
[2019-03-17] MEDS: THIAMINE HCL 100 MG TABLET (FP) PO SCH (21:41)
[2019-03-17] MEDS: MELATONIN 5 MG TABLETS PO PRN (21:41)
[2019-03-18] MEDS ORDERED: METHADONE HCL 40 MG DISPERSABLE TABLET ONE (08:29)
[2019-03-18] MEDS ORDERED: METHADONE HCL 10 MG TABLET ONE (08:29)
[2019-03-18] MEDS: NICOTINE 14 MG/24 HOURS TOPICAL PATCH TD SCH (09:17)
[2019-03-18] MEDS: PRENATAL VITAMINS W/ FOLIC ACID TABLET (FP) PO SCH (09:17)
[2019-03-18] MEDS: METHADONE 80 MG, METHADONE 20 MG PO SCH (09:17)
[2019-03-18] MEDS: P-EPHED 60MG/TRIPROLIDI 2.5MG TABLET PO PRN ×2 (09:20→21:09)
[2019-03-18] MEDS: THIAMINE HCL 100 MG TABLET (FP) PO SCH (21:09)
[2019-03-18] MEDS: MELATONIN 5 MG TABLETS PO PRN (21:09)
[2019-03-19] MEDS ORDERED: METHADONE HCL 10 MG TABLET ONE (08:22)
[2019-03-19] MEDS ORDERED: METHADONE HCL 40 MG DISPERSABLE TABLET ONE (08:23)
[2019-03-19] MEDS: PRENATAL VITAMINS W/ FOLIC ACID TABLET (FP) PO SCH (09:20)
[2019-03-19] MEDS: NICOTINE 14 MG/24 HOURS TOPICAL PATCH TD SCH (09:20)
[2019-03-19] MEDS: METHADONE 80 MG, METHADONE 20 MG PO SCH (09:21)
[2019-03-19] MEDS: MELATONIN 5 MG TABLETS PO PRN (21:36)
[2019-03-19] MEDS: THIAMINE HCL 100 MG TABLET (FP) PO SCH (21:36)
[2019-03-19] MEDS: P-EPHED 60MG/TRIPROLIDI 2.5MG TABLET PO PRN (21:37)
[2019-03-20] MEDS ORDERED: METHADONE HCL 10 MG TABLET ONE (09:25)
[2019-03-20] MEDS ORDERED: METHADONE HCL 40 MG DISPERSABLE TABLET ONE (09:25)
[2019-03-20] MEDS: PRENATAL VITAMINS W/ FOLIC ACID TABLET (FP) PO SCH (09:26)
[2019-03-20] MEDS: METHADONE 80 MG, METHADONE 20 MG PO SCH (09:26)
[2019-03-20] MEDS: NICOTINE 14 MG/24 HOURS TOPICAL PATCH TD SCH (09:27)
[2019-03-20] MEDS: MELATONIN 5 MG TABLETS PO PRN (21:35)
[2019-03-20] MEDS: THIAMINE HCL 100 MG TABLET (FP) PO SCH (21:35)
[2019-03-21] MEDS ORDERED: METHADONE HCL 40 MG DISPERSABLE TABLET ONE (08:54)
[2019-03-21] MEDS ORDERED: METHADONE HCL 10 MG TABLET ONE (08:54)
[2019-03-21] MEDS: PRENATAL VITAMINS W/ FOLIC ACID TABLET (FP) PO SCH (09:28)
[2019-03-21] MEDS: METHADONE 80 MG, METHADONE 20 MG PO SCH (09:28)
[2019-03-21] MEDS: NICOTINE 14 MG/24 HOURS TOPICAL PATCH TD SCH (09:28)
[2019-03-21] MEDS: THIAMINE HCL 100 MG TABLET (FP) PO SCH (21:43)
[2019-03-22] MEDS ORDERED: METHADONE HCL 10 MG TABLET ONE (09:26)
[2019-03-22] MEDS ORDERED: METHADONE HCL 40 MG DISPERSABLE TABLET ONE (09:26)
[2019-03-22] MEDS: PRENATAL VITAMINS W/ FOLIC ACID TABLET (FP) PO SCH (09:27)
[2019-03-22] MEDS: METHADONE 80 MG, METHADONE 20 MG PO SCH (09:28)
[2019-03-22] MEDS: NICOTINE 14 MG/24 HOURS TOPICAL PATCH TD SCH (09:30)
[2019-03-22] MEDS: THIAMINE HCL 100 MG TABLET (FP) PO SCH (21:35)
[2019-03-22] MEDS: MELATONIN 5 MG TABLETS PO PRN (21:35)
[2019-03-23] MEDS ORDERED: METHADONE HCL 10 MG TABLET ONE (09:02)
[2019-03-23] MEDS ORDERED: METHADONE HCL 40 MG DISPERSABLE TABLET ONE (09:02)
[2019-03-23] MEDS: PRENATAL VITAMINS W/ FOLIC ACID TABLET (FP) PO SCH (09:27)
[2019-03-23] MEDS: METHADONE 80 MG, METHADONE 20 MG PO SCH (09:28)
[2019-03-23] MEDS: NICOTINE 14 MG/24 HOURS TOPICAL PATCH TD SCH (09:28)
[2019-03-23] MEDS: THIAMINE HCL 100 MG TABLET (FP) PO SCH (21:08)
[2019-03-23] MEDS: MELATONIN 5 MG TABLETS PO PRN (21:08)
[2019-03-24] MEDS: PRENATAL VITAMINS W/ FOLIC ACID TABLET (FP) PO SCH (09:41)
[2019-03-24] MEDS: METHADONE 80 MG, METHADONE 20 MG PO SCH (09:42)
[2019-03-24] MEDS ORDERED: METHADONE HCL 40 MG DISPERSABLE TABLET ONE (09:42)
[2019-03-24] MEDS ORDERED: METHADONE HCL 10 MG TABLET ONE (09:42)
[2019-03-24] MEDS: NICOTINE 14 MG/24 HOURS TOPICAL PATCH TD SCH (09:43)
[2019-03-24] MEDS: THIAMINE HCL 100 MG TABLET (FP) PO SCH (21:32)
[2019-03-24] MEDS: MELATONIN 5 MG TABLETS PO PRN (21:32)
[2019-03-25] MEDS ORDERED: METHADONE HCL 10 MG TABLET ONE (09:29)
[2019-03-25] MEDS ORDERED: METHADONE HCL 40 MG DISPERSABLE TABLET ONE (09:29)
[2019-03-25] MEDS: METHADONE 80 MG, METHADONE 20 MG PO SCH (09:31)
[2019-03-25] MEDS: PRENATAL VITAMINS W/ FOLIC ACID TABLET (FP) PO SCH (09:31)
[2019-03-25] MEDS: NICOTINE 14 MG/24 HOURS TOPICAL PATCH TD SCH (09:32)
[2019-03-25] MEDS: THIAMINE HCL 100 MG TABLET (FP) PO SCH (21:09)
[2019-03-25] MEDS: MELATONIN 5 MG TABLETS PO PRN (21:10)
[2019-03-26] MEDS ORDERED: METHADONE HCL 10 MG TABLET ONE (09:28)
[2019-03-26] MEDS ORDERED: METHADONE HCL 40 MG DISPERSABLE TABLET ONE (09:29)
[2019-03-26] MEDS: PRENATAL VITAMINS W/ FOLIC ACID TABLET (FP) PO SCH (09:29)
[2019-03-26] MEDS: METHADONE 80 MG, METHADONE 20 MG PO SCH (09:29)
[2019-03-26] MEDS: NICOTINE 14 MG/24 HOURS TOPICAL PATCH TD SCH (09:30)
[2019-03-26] MEDS: THIAMINE HCL 100 MG TABLET (FP) PO SCH (21:28)
[2019-03-26] MEDS: MELATONIN 5 MG TABLETS PO PRN (21:28)
[2019-03-27] MEDS ORDERED: METHADONE HCL 40 MG DISPERSABLE TABLET ONE (09:10)
[2019-03-27] MEDS ORDERED: METHADONE HCL 10 MG TABLET ONE (09:10)
[2019-03-27] MEDS: METHADONE 80 MG, METHADONE 20 MG PO SCH (09:30)
[2019-03-27] MEDS: PRENATAL VITAMINS W/ FOLIC ACID TABLET (FP) PO SCH (09:30)
[2019-03-27] MEDS: NICOTINE 14 MG/24 HOURS TOPICAL PATCH TD SCH (09:32)
[2019-03-27] MEDS: THIAMINE HCL 100 MG TABLET (FP) PO SCH (21:09)
[2019-03-27] MEDS: MELATONIN 5 MG TABLETS PO PRN (21:09)
[2019-03-28] MEDS ORDERED: METHADONE HCL 40 MG DISPERSABLE TABLET ONE (10:05)
[2019-03-28] MEDS ORDERED: METHADONE HCL 10 MG TABLET ONE (10:05)
[2019-03-28] MEDS: NICOTINE 14 MG/24 HOURS TOPICAL PATCH TD SCH (10:06)
[2019-03-28] MEDS: METHADONE 80 MG, METHADONE 20 MG PO SCH (10:06)
[2019-03-28] MEDS: PRENATAL VITAMINS W/ FOLIC ACID TABLET (FP) PO SCH (10:06)
[2019-03-28] MEDS: MELATONIN 5 MG TABLETS PO PRN (21:30)
[2019-03-28] MEDS: THIAMINE HCL 100 MG TABLET (FP) PO SCH (21:30)
[2019-03-29 06:50] VITALS: BP 119/72; PULSE 68; TEMP 97.8
--- NOTE | 2019-03-29 08:44 | DS ---
[facility] Discharge Summary - [facility] Discharge Summary Admission Date: 03/02/19 Discharge Date: 03/29/19 - History Present History: MMTP, Sedative dependence Pertinent Past History: 48 years old male with a long history of Benzodiazepine dependence. Patient reports multiple detox admissions, last at [facility] and reports that he relapsed 2 days post detox. He reports insignificant period of sobriety. He has medical history Hep. C (treated in senior living 1997), peripheral neuropathy and arthritis. He denies psychiatric history. He is on Methadone 100mg tablet oral daily with [address] He denies suicidal ideatio at this time - Discharge Physical Exam Vital Signs: Vital Signs Temperature 97.8 F 03/29/19 06:49 Pulse Rate 68 03/29/19 06:49 Respiratory Rate 18 03/29/19 06:49 Blood Pressure 119/72 03/29/19 06:49 O2 Sat by Pulse Oximetry (%) Pertinent Admission Physical Exam Findings: Physical General Appearance: No apparent distress Respiratory: Lungs Clear, Neck: Yes: Supple Cardiology: Regular Rhythm & Rate Abdominal: +Bowel Sounds, Soft Neurological: CN 2-12 - Treatment Discharge Condition: Outpatient referral accepted (Medically stable for discharge. Patient referred to [facility]) Hospital Course: Patient attended groups, has 1:1 with his counselor. He had no acute or urgent medical problems during his stay in rehab. - Medication Discharge Medications: Ambulatory Orders Multivitamins [Multivit ([facility] Formulary)] 1 tab PO DAILY 02/27/19 - Medication-Assisted Treatment (MAT) Medication-Assisted Treatment (MAT): Yes MAT Follow-up Referral: MMTP - Discharge Instructions Diet, activity, other medical instructions: Diet: As tolerated Activity: as tolerated Other medical instructions: Please follow up with referral. - Diagnosis (1) Benzodiazepine withdrawal Current Visit: No Status: Chronic (2) Methadone maintenance therapy patient Current Visit: No Status: Chronic - Follow-up Referral Minutes to complete discharge: 15 - AMA Did Patient Leave Against Medical Advice: No Additional Comments: No home medication prescriptions needed.
[2019-03-29] MEDS ORDERED: METHADONE HCL 10 MG TABLET ONE (09:01)
[2019-03-29] MEDS ORDERED: METHADONE HCL 40 MG DISPERSABLE TABLET ONE (09:01)
[2019-03-29] MEDS: METHADONE 80 MG, METHADONE 20 MG PO SCH (09:03)
[2019-03-29] MEDS: PRENATAL VITAMINS W/ FOLIC ACID TABLET (FP) PO SCH (09:03)
[2019-03-29] MEDS: NICOTINE 14 MG/24 HOURS TOPICAL PATCH TD SCH (09:05)
== END 2019-03-29 09:30 | disposition home or self-care (01) | DRG 772 ==
LOC: YASAS 11:42 → Y3W 11:43
PROVIDERS: ADMIT Neuromusculoskeletal Medicine & OMM; ATTEND Neuromusculoskeletal Medicine & OMM
PROC: HZ42ZZZ Group Counseling for Substance Abuse Treatment, Cognitive-Behavioral (ICD-10-PCS; principal; 2019-03-02)
DX: F13.20 Sedative, hypnotic or anxiolytic dependence, uncomplicated (principal); F11.20 Opioid dependence, uncomplicated; F17.210 Nicotine dependence, cigarettes, uncomplicated; M19.90 Unspecified osteoarthritis, unspecified site; G62.9 Polyneuropathy, unspecified; Z91.013 Allergy to seafood; Z91.018 Allergy to other foods
CPT/HCPCS: 36415; 87389

== ENCOUNTER 2019-05-15 10:03 | Inpatient (IN) | payer OTHER ==
--- NOTE | 2019-05-15 10:22 | BHS.RME ---
Substance Use & Tx History - Substance Use History Alcohol Substance amount: 1/2 pint vodka Frequency of use: Daily Substance route: Oral Date of Last Use: 05/14/19 (7PM) Benzodiazepines Substance amount: Xanax or Klonopin 5 or 3-4 respectively Frequency of use: Daily Substance route: Oral Date of Last Use: 05/14/19 (7PM) Physical/Psych/Mental Status - Behavior General Behavior: Increased activity (restlessness, agitation) Eye Contact: Normal - Cooperativeness Cooperativeness: Cooperative - Thinking Thought Processes: Tight, Logical, Goal Directed Thought content: Future oriented - Physical Health Problems Is patient presently having any pain?: No Does patient presently have any injuries (include location): No Does patient currently have a fever: No Is patient : No CIWA Nausea/Vomitin-Mild Nausea/No Vomiting Muscle Tremors: 1-None Visible, but [place] Anxiety: 1-Mildly Anxious Agitation: 0-Normal Activity Paroxysmal Sweats: No Perspiration Orientation: 2-Disoriented Date<2 days Tacttile Disturbances: 0-None Auditory Disturbances: 0-None Visual Disturbances: 0-None Headache: 1-Very Mild (not yet in withdrawals and is taking benzo so mitigating withdrawal symptoms. he has sedative dependence.) CIWA-Ar Total Score: 6
[2019-05-15 11:40] VITALS: BMI 27.0
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
[2019-05-15] MEDS ORDERED: MAGNESIUM CITRATE 300 ML BOTTLE PO PRN (12:37)
[2019-05-15] MEDS ORDERED: MENTHOL/PHENOL 1 EACH UD MM PRN (12:37)
[2019-05-15] MEDS ORDERED: MAGNESIUM HYDROX 2400MG/30ML ORAL SUSPENSION 30 ML CUP PO PRN (12:37)
[2019-05-15] MEDS ORDERED: METHOCARBAMOL 500 MG TABLET PO PRN (12:37)
[2019-05-15] MEDS ORDERED: MAG HYDROX/AL HYDROX/SIMETH 30 ML UNIT-DOSE CUP PO PRN (12:37)
[2019-05-15] MEDS ORDERED: chlordiazePOXIDE HCL 25 MG CAPSULE PO PRN (12:37)
[2019-05-15] MEDS ORDERED: BISMUTH SUBSALICYLATE 524 MG/30 ML UD PO PRN (12:37)
[2019-05-15] MEDS ORDERED: ACETAMINOPHEN 325 MG TABLET (FP) PO PRN ×2 (12:37)
[2019-05-15] MEDS ORDERED: IBUPROFEN 400 MG TABLET (FP) PO PRN (12:37)
[2019-05-15] MEDS ORDERED: ONDANSETRON *ODT* 4 MG TABLET SL ONE (14:00)
[2019-05-15] MEDS: hydrOXYzine PAMOATE 25 MG CAPSULE (FP) PO SCH ×3 (14:10→22:10)
[2019-05-15] MEDS: NICOTINE 7 MG/24 HOURS TOPICAL PATCH TD SCH (14:10)
[2019-05-15] MEDS: PRENATAL VITAMINS W/ FOLIC ACID TABLET (FP) PO SCH (14:11)
[2019-05-15] MEDS: chlordiazePOXIDE HCL 25 MG CAPSULE PO SCH ×3 (14:12→22:10)
[2019-05-15 20:52] LABS: HEMATOCRIT 40.3 % (35.4-49); HEMOGLOBIN 13.7 GM/dL (11.7-16.9); MCH 31.3 pg (25.7-33.7); MCHC 33.9 g/dl (32.0-35.9); MEAN CELL VOLUME 92.1 fl (80-96); MEAN PLT VOLUME 10.2 fl (7.5-11.1); PLATELET COUNT 132 K/MM3 (134-434); RBC 4.38 M/mm3 (4.00-5.60); RDW 13.9 % (11.9-15.9); WHITE BLOOD COUNT 3.5 K/mm3 (4.0-10.0)
[2019-05-15 21:07] LABS: BILIRUBIN,TOTAL 0.7 mg/dL (0.2-1); BLOOD UREA NITROGEN 26.8 mg/dL (7-18); CALCIUM 8.8 mg/dL (8.5-10.1); CREATININE 1.1 mg/dL (0.55-1.3); POTASSIUM 3.9 mmol/L (3.5-5.1); TOT PROT 7.7 g/dl (6.4-8.2)
[2019-05-15] MEDS: THIAMINE HCL 100 MG TABLET (FP) PO SCH (22:10)
[2019-05-15] MEDS: MELATONIN 5 MG TABLETS PO SCH (22:10)
[2019-05-16] MEDS ORDERED: METHADONE HCL 10 MG TABLET ONE ×2 (04:49→09:16)
[2019-05-16] MEDS ORDERED: METHADONE HCL 40 MG DISPERSABLE TABLET ONE ×2 (04:49→09:17)
[2019-05-16] MEDS ORDERED: METHADONE 120 MG, METHADONE 20 MG PO SCH (06:00)
[2019-05-16] MEDS ORDERED: METHADONE HCL 10 MG TABLET PO SCH (06:00)
[2019-05-16] MEDS: chlordiazePOXIDE HCL 25 MG CAPSULE PO SCH ×2 (06:38→10:35)
[2019-05-16] MEDS: hydrOXYzine PAMOATE 25 MG CAPSULE (FP) PO SCH ×5 (06:38→22:14)
[2019-05-16] MEDS: PRENATAL VITAMINS W/ FOLIC ACID TABLET (FP) PO SCH (10:35)
[2019-05-16] MEDS: NICOTINE 7 MG/24 HOURS TOPICAL PATCH TD SCH (10:35)
--- NOTE | 2019-05-16 10:50 | PN ---
S CIWA - CIWA Score Nausea/Vomitin-Mild Nausea/No Vomiting Muscle Tremors: 4-Moderate,w/Arms Extend Anxiety: 3 Agitation: 0-Normal Activity Paroxysmal Sweats: 2 Orientation: 0-Oriented Tacttile Disturbances: 0-None Auditory Disturbances: 0-None Visual Disturbances: 2-Mild Sensitivity Headache: 0-None Present CIWA-Ar Total Score: 12 BHS Progress Note (SOAP) Subjective: 48 years old male admitted on 05/15/19 for alcohol and benzo withdrawal sx management treating with librium detox regiment requests to take methaodne around 10 am instead of 6 am patient received methadone 140 mg today begin methadone 140 mg po at 10 am 05/17/19 Objective: 05/16/19 10:49 Vital Signs Temperature 98.1 F 05/16/19 09:29 Pulse Rate 69 05/16/19 09:29 Respiratory Rate 15 05/16/19 09:29 Blood Pressure 97/59 L 05/16/19 09:29 O2 Sat by Pulse Oximetry (%) 96 05/16/19 05:05 Laboratory Last Values WBC 3.5 K/mm3 (4.0-10.0) L 05/15/19 12:40 RBC 4.38 M/mm3 (4.00-5.60) 05/15/19 12:40 Hgb 13.7 GM/dL (11.7-16.9) 05/15/19 12:40 Hct 40.3 % (35.4-49) 05/15/19 12:40 MCV 92.1 fl (80-96) 05/15/19 12:40 MCH 31.3 pg (25.7-33.7) 05/15/19 12:40 MCHC 33.9 g/dl (32.0-35.9) 05/15/19 12:40 RDW 13.9 % (11.9-15.9) 05/15/19 12:40 Plt Count 132 K/MM3 (134-434) L D 05/15/19 12:40 MPV 10.2 fl (7.5-11.1) D 05/15/19 12:40 Sodium 138 mmol/L (136-145) 05/15/19 12:40 Potassium 3.9 mmol/L (3.5-5.1) 05/15/19 12:40 Chloride 102 mmol/L (98-107) 05/15/19 12:40 Carbon Dioxide 28 mmol/L (21-32) 05/15/19 12:40 Anion Gap 8 MMOL/L (8-16) 05/15/19 12:40 BUN 26.8 mg/dL (7-18) H 05/15/19 12:40 Creatinine 1.1 mg/dL (0.55-1.3) 05/15/19 12:40 Est GFR (CKD-EPI)AfAm 90.24 05/15/19 12:40 Est GFR (CKD-EPI)NonAf 77.86 05/15/19 12:40 Random Glucose 132 mg/dL (74-106) H 05/15/19 12:40 Calcium 8.8 mg/dL (8.5-10.1) 05/15/19 12:40 Total Bilirubin 0.7 mg/dL (0.2-1) 05/15/19 12:40 AST 113 U/L (15-37) H 05/15/19 12:40 ALT 90 U/L (13-61) H 05/15/19 12:40 Alkaline Phosphatase 80 U/L (45-117) 05/15/19 12:40 Total Protein 7.7 g/dl (6.4-8.2) 05/15/19 12:40 Albumin 4.0 g/dl (3.4-5.0) 05/15/19 12:40 Syphilis Serology Non-reactive (NONREACTIVE) 05/15/19 12:40 lab noted 05/16/19 10:55 glucose elevation bun elevation ast elevation fasting glucose encourage oral fluid discontinue librium begin ativan regiment Assessment: 05/16/19 10:53 alcohol and benzo withdrawal Plan: librium regiment
[2019-05-16] MEDS ORDERED: LORazepam 1 MG TABLET PO PRN (11:01)
[2019-05-16] MEDS: LORazepam 2 MG TABLET PO SCH ×2 (17:23→22:13)
[2019-05-16] MEDS: MELATONIN 5 MG TABLETS PO SCH (22:13)
[2019-05-16] MEDS: THIAMINE HCL 100 MG TABLET (FP) PO SCH (22:13)
[2019-05-17] MEDS ORDERED: chlordiazePOXIDE HCL 25 MG CAPSULE PO SCH (05:00)
[2019-05-17] MEDS: LORazepam 2 MG TABLET PO SCH ×4 (05:32→22:10)
[2019-05-17] MEDS: hydrOXYzine PAMOATE 25 MG CAPSULE (FP) PO SCH ×5 (05:32→22:10)
[2019-05-17] MEDS ORDERED: METHADONE HCL 10 MG TABLET ONE (09:11)
[2019-05-17] MEDS ORDERED: METHADONE HCL 40 MG DISPERSABLE TABLET ONE (09:12)
[2019-05-17] MEDS: METHADONE 120 MG, METHADONE 20 MG PO SCH (10:21)
[2019-05-17] MEDS: PRENATAL VITAMINS W/ FOLIC ACID TABLET (FP) PO SCH (10:22)
[2019-05-17] MEDS: NICOTINE 7 MG/24 HOURS TOPICAL PATCH TD SCH (10:23)
--- NOTE | 2019-05-17 10:30 | PN ---
[facility] CIWA - CIWA Score Nausea/Vomitin-Mild Nausea/No Vomiting Muscle Tremors: 2 Anxiety: 2 Agitation: 1-Slight > Activity Paroxysmal Sweats: 2 Orientation: 0-Oriented Tacttile Disturbances: 0-None Auditory Disturbances: 0-None Visual Disturbances: 2-Mild Sensitivity Headache: 0-None Present CIWA-Ar Total Score: 10 S Progress Note (SOAP) Subjective: 48 years old male admitted on 05/15/19 for alcohol and benzo withdrawal sx management treating with ativan detox regiment slept better at night good hygiene less tremor mild anxiety Objective: 05/17/19 10:29 Vital Signs Temperature 98.5 F 05/17/19 08:57 Pulse Rate 71 05/17/19 08:57 Respiratory Rate 18 05/17/19 08:57 Blood Pressure 111/73 05/17/19 08:57 O2 Sat by Pulse Oximetry (%) 96 05/17/19 05:53 Laboratory Last Values WBC 3.5 K/mm3 (4.0-10.0) L 05/15/19 12:40 RBC 4.38 M/mm3 (4.00-5.60) 05/15/19 12:40 Hgb 13.7 GM/dL (11.7-16.9) 05/15/19 12:40 Hct 40.3 % (35.4-49) 05/15/19 12:40 MCV 92.1 fl (80-96) 05/15/19 12:40 MCH 31.3 pg (25.7-33.7) 05/15/19 12:40 MCHC 33.9 g/dl (32.0-35.9) 05/15/19 12:40 RDW 13.9 % (11.9-15.9) 05/15/19 12:40 Plt Count 132 K/MM3 (134-434) L D 05/15/19 12:40 MPV 10.2 fl (7.5-11.1) D 05/15/19 12:40 Sodium 138 mmol/L (136-145) 05/15/19 12:40 Potassium 3.9 mmol/L (3.5-5.1) 05/15/19 12:40 Chloride 102 mmol/L (98-107) 05/15/19 12:40 Carbon Dioxide 28 mmol/L (21-32) 05/15/19 12:40 Anion Gap 8 MMOL/L (8-16) 05/15/19 12:40 BUN 26.8 mg/dL (7-18) H 05/15/19 12:40 Creatinine 1.1 mg/dL (0.55-1.3) 05/15/19 12:40 Est GFR (CKD-EPI)AfAm 90.24 05/15/19 12:40 Est GFR (CKD-EPI)NonAf 77.86 05/15/19 12:40 Random Glucose 132 mg/dL (74-106) H 05/15/19 12:40 Calcium 8.8 mg/dL (8.5-10.1) 05/15/19 12:40 Total Bilirubin 0.7 mg/dL (0.2-1) 05/15/19 12:40 AST 113 U/L (15-37) H 05/15/19 12:40 ALT 90 U/L (13-61) H 05/15/19 12:40 Alkaline Phosphatase 80 U/L (45-117) 05/15/19 12:40 Total Protein 7.7 g/dl (6.4-8.2) 05/15/19 12:40 Albumin 4.0 g/dl (3.4-5.0) 05/15/19 12:40 Syphilis Serology Non-reactive (NONREACTIVE) 05/15/19 12:40 05/17/19 10:30 lab noted fasting glucose pending Assessment: 05/17/19 10:30 alcohol benzo withdrawal Plan: ativan regiment
[2019-05-17] MEDS: THIAMINE HCL 100 MG TABLET (FP) PO SCH (22:10)
[2019-05-17] MEDS: MELATONIN 5 MG TABLETS PO SCH (22:10)
[2019-05-18] MEDS ORDERED: chlordiazePOXIDE HCL 10 MG CAPSULE PO PRN
[2019-05-18] MEDS ORDERED: chlordiazePOXIDE HCL 10 MG CAPSULE PO SCH (05:00)
[2019-05-18] MEDS: hydrOXYzine PAMOATE 25 MG CAPSULE (FP) PO SCH ×5 (05:22→22:07)
[2019-05-18] MEDS: LORazepam 1 MG TABLET PO SCH ×4 (05:22→22:07)
[2019-05-18] MEDS ORDERED: METHADONE HCL 10 MG TABLET ONE (09:23)
[2019-05-18] MEDS ORDERED: METHADONE HCL 40 MG DISPERSABLE TABLET ONE (09:24)
--- NOTE | 2019-05-18 10:00 | PN ---
S CIWA - CIWA Score Nausea/Vomitin-Mild Nausea/No Vomiting Muscle Tremors: 2 Anxiety: 2 Agitation: 1-Slight > Activity Paroxysmal Sweats: No Perspiration Orientation: 0-Oriented Tacttile Disturbances: 1-Very Mild Itch/Numbness Auditory Disturbances: 0-None Visual Disturbances: 0-None Headache: 1-Very Mild CIWA-Ar Total Score: 8 BHS Progress Note (SOAP) Subjective: alert,irritable,anxious,interrupted sleep,alex in the body and back Vital Signs Temperature 97.5 F L 05/18/19 08:34 Pulse Rate 73 05/18/19 08:34 Respiratory Rate 18 05/18/19 08:34 Blood Pressure 119/80 05/18/19 08:34 O2 Sat by Pulse Oximetry (%) 97 05/18/19 06:03 Objective: 05/18/19 09:56 Vital Signs Temperature 97.5 F L 05/18/19 08:34 Pulse Rate 73 05/18/19 08:34 Respiratory Rate 18 05/18/19 08:34 Blood Pressure 119/80 05/18/19 08:34 O2 Sat by Pulse Oximetry (%) 97 05/18/19 06:03 Laboratory Last Values WBC 3.5 K/mm3 (4.0-10.0) L 05/15/19 12:40 RBC 4.38 M/mm3 (4.00-5.60) 05/15/19 12:40 Hgb 13.7 GM/dL (11.7-16.9) 05/15/19 12:40 Hct 40.3 % (35.4-49) 05/15/19 12:40 MCV 92.1 fl (80-96) 05/15/19 12:40 MCH 31.3 pg (25.7-33.7) 05/15/19 12:40 MCHC 33.9 g/dl (32.0-35.9) 05/15/19 12:40 RDW 13.9 % (11.9-15.9) 05/15/19 12:40 Plt Count 132 K/MM3 (134-434) L D 05/15/19 12:40 MPV 10.2 fl (7.5-11.1) D 05/15/19 12:40 Sodium 138 mmol/L (136-145) 05/15/19 12:40 Potassium 3.9 mmol/L (3.5-5.1) 05/15/19 12:40 Chloride 102 mmol/L (98-107) 05/15/19 12:40 Carbon Dioxide 28 mmol/L (21-32) 05/15/19 12:40 Anion Gap 8 MMOL/L (8-16) 05/15/19 12:40 BUN 26.8 mg/dL (7-18) H 05/15/19 12:40 Creatinine 1.1 mg/dL (0.55-1.3) 05/15/19 12:40 Est GFR (CKD-EPI)AfAm 90.24 05/15/19 12:40 Est GFR (CKD-EPI)NonAf 77.86 05/15/19 12:40 Random Glucose 132 mg/dL (74-106) H 05/15/19 12:40 Fasting Glucose 140 mg/dL (74-106) H 05/17/19 07:30 Calcium 8.8 mg/dL (8.5-10.1) 05/15/19 12:40 Total Bilirubin 0.7 mg/dL (0.2-1) 05/15/19 12:40 AST 113 U/L (15-37) H 05/15/19 12:40 ALT 90 U/L (13-61) H 05/15/19 12:40 Alkaline Phosphatase 80 U/L (45-117) 05/15/19 12:40 Total Protein 7.7 g/dl (6.4-8.2) 05/15/19 12:40 Albumin 4.0 g/dl (3.4-5.0) 05/15/19 12:40 Syphilis Serology Non-reactive (NONREACTIVE) 05/15/19 12:40 Assessment: 05/18/19 09:withdrawal symptom Plan: continue detox ativan regimen,repeat cmp in am,encourage oral fluid,bgm bid ac,hb a1c in am,diet modification
[2019-05-18] MEDS: METHADONE 120 MG, METHADONE 20 MG PO SCH (10:05)
[2019-05-18] MEDS: PRENATAL VITAMINS W/ FOLIC ACID TABLET (FP) PO SCH (10:05)
[2019-05-18] MEDS: NICOTINE 7 MG/24 HOURS TOPICAL PATCH TD SCH (10:07)
[2019-05-18] MEDS: NICOTINE POLACRILEX 2 MG GUM BUC PRN (10:07)
[2019-05-18] MEDS: THIAMINE HCL 100 MG TABLET (FP) PO SCH (22:07)
[2019-05-18] MEDS: MELATONIN 5 MG TABLETS PO SCH (22:07)
[2019-05-19] MEDS ORDERED: LORazepam 0.5 MG TABLET PO PRN
[2019-05-19] MEDS ORDERED: chlordiazePOXIDE HCL 10 MG CAPSULE PO SCH (05:00)
[2019-05-19] MEDS: LORazepam 0.5 MG TABLET PO SCH ×4 (06:07→22:21)
[2019-05-19] MEDS: hydrOXYzine PAMOATE 25 MG CAPSULE (FP) PO SCH ×5 (06:07→22:21)
[2019-05-19] MEDS ORDERED: METHADONE HCL 10 MG TABLET ONE (08:57)
[2019-05-19] MEDS ORDERED: METHADONE HCL 40 MG DISPERSABLE TABLET ONE (08:58)
--- NOTE | 2019-05-19 09:24 | PN ---
[facility] CIWA - CIWA Score Nausea/Vomitin-Mild Nausea/No Vomiting Muscle Tremors: None Anxiety: 1-Mildly Anxious Agitation: 0-Normal Activity Paroxysmal Sweats: No Perspiration Orientation: 2-Disoriented Date<2 days Tacttile Disturbances: 0-None Auditory Disturbances: 0-None Visual Disturbances: 1-Very Mild Sensitivity Headache: 0-None Present CIWA-Ar Total Score: 5 BHS Progress Note (SOAP) Subjective: Slight nausea, anxiety, visual sensitivity Objective: 05/19/19 09:20 Laboratory Tests 05/15/19 05/15/19 05/15/19 12:40 12:40 12:40 WBC 3.5 L RBC 4.38 Hgb 13.7 Hct 40.3 MCV 92.1 MCH 31.3 MCHC 33.9 RDW 13.9 Plt Count 132 L D MPV 10.2 D Sodium 138 Potassium 3.9 Chloride 102 Carbon Dioxide 28 Anion Gap 8 BUN 26.8 H Creatinine 1.1 Est GFR (CKD-EPI)AfAm 90.24 Est GFR (CKD-EPI)NonAf 77.86 POC Glucometer Random Glucose 132 H Fasting Glucose Calcium 8.8 Total Bilirubin 0.7 AST 113 H ALT 90 H Alkaline Phosphatase 80 Total Protein 7.7 Albumin 4.0 Syphilis Serology Non-reactive 05/17/19 05/18/19 05/19/19 07:30 16:41 06:06 WBC RBC Hgb Hct MCV MCH MCHC RDW Plt Count MPV Sodium Potassium Chloride Carbon Dioxide Anion Gap BUN Creatinine Est GFR (CKD-EPI)AfAm Est GFR (CKD-EPI)NonAf POC Glucometer 174 120 Random Glucose Fasting Glucose 140 H Calcium Total Bilirubin AST ALT Alkaline Phosphatase Total Protein Albumin Syphilis Serology Vital Signs - 24 hr 05/18/19 05/18/19 05/19/19 16:37 20:39 00:30 Temperature 98.6 F 98.6 F Pulse Rate 72 78 Respiratory 16 16 18 Rate Blood Pressure 133/81 137/88 O2 Sat by Pulse 99 Oximetry (%) 05/19/19 05/19/19 05/19/19 03:30 05:51 08:32 Temperature 99.4 F 98.3 F Pulse Rate 76 80 Respiratory 16 16 18 Rate Blood Pressure 115/63 114/69 O2 Sat by Pulse 97 Oximetry (%) PE Gnl WDWN, in no distress Mental status: mildly anxious Motor: no tremor Coord: nl Gait: steady Assessment: 05/19/19 09:21 1. Alcohol use disorder 2. Opioid use disorder on Methadone maintenance 3. Nicotine dependence 4. Mildly elevated glucose 05/19/19 09:23 Plan: 1. Continue Ativan withdrawal protocol 2. Continue methadone maintenance 3. Nicotine patch 4. HgA1c pending 5. pending discharge in am
[2019-05-19] MEDS: METHADONE 120 MG, METHADONE 20 MG PO SCH (10:05)
[2019-05-19] MEDS: PRENATAL VITAMINS W/ FOLIC ACID TABLET (FP) PO SCH (10:05)
[2019-05-19] MEDS: NICOTINE 7 MG/24 HOURS TOPICAL PATCH TD SCH (10:07)
[2019-05-19] MEDS: NICOTINE POLACRILEX 2 MG GUM BUC PRN (10:07)
[2019-05-19] MEDS ORDERED: IBUPROFEN 400 MG TABLET (FP) PO PRN (21:15)
--- NOTE | 2019-05-19 21:18 | PN ---
S Progress Note Note: Elevated temp. Denies sore throat, cough, SOB. Vital Signs - 24 hr 05/19/19 05/19/19 05/19/19 00:30 03:30 05:51 Temperature 99.4 F Pulse Rate 76 Respiratory 18 16 16 Rate Blood Pressure 115/63 O2 Sat by Pulse 97 Oximetry (%) 05/19/19 05/19/19 05/19/19 08:32 13:00 16:38 Temperature 98.3 F 97.9 F 98.4 F Pulse Rate 80 77 78 Respiratory 18 18 16 Rate Blood Pressure 114/69 103/55 L 131/81 O2 Sat by Pulse 98 Oximetry (%) 05/19/19 05/19/19 21:11 21:13 Temperature 101.9 F H Pulse Rate 81 Respiratory 17 Rate Blood Pressure 125/80 O2 Sat by Pulse 97 Oximetry (%) Plan: Ibuprofen or tylenol as needed for T >100.4 Encouraged increased water intake Monitor
[2019-05-19] MEDS: ACETAMINOPHEN 325 MG TABLET (FP) PO PRN (21:22)
[2019-05-19] MEDS: MELATONIN 5 MG TABLETS PO SCH (22:21)
[2019-05-19] MEDS: THIAMINE HCL 100 MG TABLET (FP) PO SCH (22:21)
[2019-05-20] MEDS ORDERED: chlordiazePOXIDE HCL 10 MG CAPSULE PO ONE (05:00)
[2019-05-20] MEDS ORDERED: LORazepam 0.5 MG TABLET PO ONE (05:00)
[2019-05-20] MEDS: hydrOXYzine PAMOATE 25 MG CAPSULE (FP) PO SCH ×5 (06:11→22:04)
--- NOTE | 2019-05-20 09:53 | PN ---
S CIWA - CIWA Score Nausea/Vomitin-Mild Nausea/No Vomiting Muscle Tremors: 2 Anxiety: 1-Mildly Anxious Agitation: 1-Slight > Activity Paroxysmal Sweats: 1-Minimal Palms Moist Orientation: 0-Oriented Tacttile Disturbances: 0-None Auditory Disturbances: 0-None Visual Disturbances: 0-None Headache: 0-None Present CIWA-Ar Total Score: 6 BHS Progress Note (SOAP) Subjective: pt admitted for alcohol and benzo use disorders- pt completed protocol. pt would like to go to rehab O: Vital Signs - 24 hr 05/19/19 05/19/19 05/19/19 13:00 16:38 21:11 Temperature 97.9 F 98.4 F 101.9 F H Pulse Rate 77 78 81 Respiratory 18 16 17 Rate Blood Pressure 103/55 L 131/81 125/80 O2 Sat by Pulse 98 Oximetry (%) 05/19/19 05/19/19 05/20/19 21:13 22:27 06:05 Temperature 100.5 F H 99.3 F Pulse Rate 69 Respiratory 18 Rate Blood Pressure 123/70 O2 Sat by Pulse 97 98 Oximetry (%) 05/20/19 05/20/19 08:41 09:38 Temperature 100.0 F H 100.4 F H Pulse Rate 74 Respiratory 16 Rate Blood Pressure 125/81 O2 Sat by Pulse 97 Oximetry (%) with temp Tmax 100.4 asymptomatic- no cough, chills, SOB a/p: Multiple use disorders: pt completed detox, for d/c today, but pt states methadone program is closed Wednesday and is too late for pt to get to program today for dosing tomorrow Anticipate discharge tomorrow.
[2019-05-20] MEDS ORDERED: METHADONE HCL 10 MG TABLET ONE (10:02)
[2019-05-20] MEDS ORDERED: METHADONE HCL 40 MG DISPERSABLE TABLET ONE (10:03)
[2019-05-20] MEDS: METHADONE 120 MG, METHADONE 20 MG PO SCH (10:12)
[2019-05-20] MEDS: NICOTINE 7 MG/24 HOURS TOPICAL PATCH TD SCH (10:12)
[2019-05-20] MEDS: PRENATAL VITAMINS W/ FOLIC ACID TABLET (FP) PO SCH (10:12)
[2019-05-20] MEDS: ACETAMINOPHEN 325 MG TABLET (FP) PO PRN (12:09)
[2019-05-20] MEDS: THIAMINE HCL 100 MG TABLET (FP) PO SCH (22:04)
[2019-05-20] MEDS: MELATONIN 5 MG TABLETS PO SCH (22:05)
[2019-05-21] MEDS: hydrOXYzine PAMOATE 25 MG CAPSULE (FP) PO SCH (07:26)
[2019-05-21 09:04] VITALS: BP 117/75; PULSE 89; TEMP 99.2
[2019-05-21] MEDS ORDERED: METHADONE HCL 10 MG TABLET ONE (09:24)
--- NOTE | 2019-05-21 09:24 | DS ---
[facility] Detox Discharge Summary Admission Date: 05/15/19 Discharge Date: 05/21/19 - History Present History: Alcohol Dependence, Sedative Dependence Additional Comments: 48 years old male admitted on 04/16/19 for alcohol and benzo withdrawal sx management treated with ativan detox regiment Mr Malloy has completed the ativan regiment and is tolerated well has low grade temp throughout the detox stay 99.2 around 9 am today encourage tylenal alert oriented x 3 cardiac s1s2 regular rate rhythm respiratory clear lung bilaterally on auscultation skin warm and dry Pertinent Past History: time for discharge 38 minutes low grade fever resided by tylenal no coughing no shortness of breath no alteration on olfactory denies ageusia nor hypogeusia - Physical Exam Results Vital Signs: Vital Signs Temperature 99.2 F 05/21/19 08:39 Pulse Rate 89 05/21/19 08:39 Respiratory Rate 18 05/21/19 08:39 Blood Pressure 117/75 05/21/19 08:39 O2 Sat by Pulse Oximetry (%) 95 05/21/19 04:00 Pertinent Admission Physical Exam Findings: alcohol and bzo withdrawal Vital Signs Temperature 99.2 F 05/21/19 08:39 Pulse Rate 89 05/21/19 08:39 Respiratory Rate 18 05/21/19 08:39 Blood Pressure 117/75 05/21/19 08:39 O2 Sat by Pulse Oximetry (%) 95 05/21/19 04:00 Laboratory Last Values WBC 3.5 K/mm3 (4.0-10.0) L 05/15/19 12:40 RBC 4.38 M/mm3 (4.00-5.60) 05/15/19 12:40 Hgb 13.7 GM/dL (11.7-16.9) 05/15/19 12:40 Hct 40.3 % (35.4-49) 05/15/19 12:40 MCV 92.1 fl (80-96) 05/15/19 12:40 MCH 31.3 pg (25.7-33.7) 05/15/19 12:40 MCHC 33.9 g/dl (32.0-35.9) 05/15/19 12:40 RDW 13.9 % (11.9-15.9) 05/15/19 12:40 Plt Count 132 K/MM3 (134-434) L D 05/15/19 12:40 MPV 10.2 fl (7.5-11.1) D 05/15/19 12:40 Sodium 138 mmol/L (136-145) 05/15/19 12:40 Potassium 3.9 mmol/L (3.5-5.1) 05/15/19 12:40 Chloride 102 mmol/L (98-107) 05/15/19 12:40 Carbon Dioxide 28 mmol/L (21-32) 05/15/19 12:40 Anion Gap 8 MMOL/L (8-16) 05/15/19 12:40 BUN 26.8 mg/dL (7-18) H 05/15/19 12:40 Creatinine 1.1 mg/dL (0.55-1.3) 05/15/19 12:40 Est GFR (CKD-EPI)AfAm 90.24 05/15/19 12:40 Est GFR (CKD-EPI)NonAf 77.86 05/15/19 12:40 POC Glucometer 99 UNITS (80-120) 05/21/19 07:42 Random Glucose 132 mg/dL (74-106) H 05/15/19 12:40 Fasting Glucose 140 mg/dL (74-106) H 05/17/19 07:30 Hemoglobin A1c % 5.2 % (4.2-6.3) 05/19/19 06:15 Calcium 8.8 mg/dL (8.5-10.1) 05/15/19 12:40 Total Bilirubin 0.7 mg/dL (0.2-1) 05/15/19 12:40 AST 113 U/L (15-37) H 05/15/19 12:40 ALT 90 U/L (13-61) H 05/15/19 12:40 Alkaline Phosphatase 80 U/L (45-117) 05/15/19 12:40 Total Protein 7.7 g/dl (6.4-8.2) 05/15/19 12:40 Albumin 4.0 g/dl (3.4-5.0) 05/15/19 12:40 Syphilis Serology Non-reactive (NONREACTIVE) 05/15/19 12:40 lab noted ast elevation glucose elevation patient will return to methadone program for hgb a1c and repeat ast - Treatment Hospital Course: Detox Protocol Followed, Detoxed Safely, Responded well, Discharged Condition Good, Rehab Referral Accepted Patient has Accepted a Rehab Referral to: [facility]adone maintenance program - Medication Discharge Medications: Ambulatory Orders Multivitamins [Multivit ([facility] Formulary)] 1 tab PO DAILY 02/27/19 - Diagnosis (1) Sedative, hypnotic or anxiolytic dependence, uncomplicated Status: Acute (2) Methadone maintenance therapy patient Status: Chronic (3) Substance induced mood disorder Status: Suspected (4) Nicotine dependence Status: Acute Qualifiers: Nicotine product type: cigarettes Substance use status: in withdrawal Qualified Code(s): F17.213 - Nicotine dependence, cigarettes, with withdrawal (5) Alcohol dependence with withdrawal Status: Acute Qualifiers: Complication of substance-induced condition: uncomplicated Qualified Code(s): F10.230 - Alcohol dependence with withdrawal, uncomplicated - AMA Did Patient Leave Against Medical Advice: No CIWA Score - CIWA Score Nausea/Vomitin-Mild Nausea/No Vomiting Muscle Tremors: 2 Anxiety: 0-No Anxiety, at Ease Agitation: 0-Normal Activity Paroxysmal Sweats: 1-Minimal Palms Moist Orientation: 0-Oriented Tacttile Disturbances: 0-None Auditory Disturbances: 0-None Visual Disturbances: 0-None Headache: 0-None Present CIWA-Ar Total Score: 4
[2019-05-21] MEDS ORDERED: METHADONE HCL 40 MG DISPERSABLE TABLET ONE (09:25)
[2019-05-21] MEDS: METHADONE 120 MG, METHADONE 20 MG PO SCH (09:26)
[2019-05-21] MEDS: ACETAMINOPHEN 325 MG TABLET (FP) PO PRN (09:29)
== END 2019-05-21 09:36 | disposition home or self-care (01) | DRG 773 ==
LOC: YASAS 10:03 → Y3N 12:45
PROVIDERS: ADMIT Allergy & Immunology; ATTEND Allergy & Immunology
PROC: HZ2ZZZZ Detoxification Services for Substance Abuse Treatment (ICD-10-PCS; principal; 2019-05-15)
DX: F10.230 Alcohol dependence with withdrawal, uncomplicated (principal); F13.230 Sedative, hypnotic or anxiolytic dependence with withdrawal, uncomplicated; F11.20 Opioid dependence, uncomplicated; F17.213 Nicotine dependence, cigarettes, with withdrawal; F19.24 Other psychoactive substance dependence with psychoactive substance-induced mood disorder; F32.9 Major depressive disorder, single episode, unspecified; G62.9 Polyneuropathy, unspecified; M12.9 Arthropathy, unspecified; R50.9 Fever, unspecified; R73.9 Hyperglycemia, unspecified; R74.0 Nonspecific elevation of levels of transaminase and lactic acid dehydrogenase [LDH]; R79.89 Other specified abnormal findings of blood chemistry; R76.11 Nonspecific reaction to tuberculin skin test without active tuberculosis; Z86.19 Personal history of other infectious and parasitic diseases; Z91.013 Allergy to seafood; Z91.018 Allergy to other foods; Z59.0 Homelessness
CPT/HCPCS: 36415; 80053; 82947; 82962; 83036; 85027; Q0162

== ENCOUNTER 2021-02-19 16:08 | Inpatient (IN) | payer OTHER ==
[2021-02-19 17:24] VITALS: BMI 29.9
[2021-02-19] MEDS ORDERED: NICOTINE POLACRILEX 2 MG GUM BUC PRN (19:37)
[2021-02-19] MEDS ORDERED: ACETAMINOPHEN 325 MG TABLET (FP) PO PRN ×2 (19:37)
[2021-02-19] MEDS ORDERED: MAG HYDROX/AL HYDROX/SIMETH 30 ML UNIT-DOSE CUP PO PRN (19:37)
[2021-02-19] MEDS ORDERED: MENTHOL/PHENOL 1 EACH UD MM PRN (19:37)
[2021-02-19] MEDS ORDERED: ONDANSETRON *ODT* 4 MG TABLET SL PRN (19:37)
[2021-02-19] MEDS ORDERED: MAGNESIUM HYDROX 2400MG/30ML ORAL SUSPENSION 30 ML CUP PO PRN (19:37)
[2021-02-19] MEDS ORDERED: MAGNESIUM CITRATE 300 ML BOTTLE PO PRN (19:37)
[2021-02-19] MEDS ORDERED: IBUPROFEN 400 MG TABLET (FP) PO PRN (19:37)
[2021-02-19] MEDS ORDERED: BISMUTH SUBSALICYLATE 524 MG/30 ML PO PRN (19:37)
[2021-02-19] MEDS ORDERED: diazePAM 5 MG TABLET PO PRN (19:40)
[2021-02-20] MEDS ORDERED: METHOCARBAMOL 500 MG TABLET ONE (01:49)
[2021-02-20] MEDS ORDERED: IBUPROFEN 400 MG TABLET (FP) PO ONE (01:50)
[2021-02-20] MEDS: MELATONIN 5 MG TABLETS PO SCH ×2 (01:55→22:50)
[2021-02-20] MEDS: THIAMINE HCL 100 MG TABLET (FP) PO SCH ×2 (01:55→22:50)
[2021-02-20] MEDS: METHOCARBAMOL 500 MG TABLET PO PRN ×3 (01:55→17:37)
[2021-02-20] MEDS ORDERED: diazePAM 5 MG TABLET PO PRN (08:46)
[2021-02-20] MEDS ORDERED: methaDONE HCL 10 MG TABLET PO ONE (10:00)
[2021-02-20] MEDS ORDERED: methaDONE 40 MG, methaDONE 20 MG PO ONE (10:00)
[2021-02-20] MEDS ORDERED: methaDONE HCL 40 MG DISPERSABLE TABLET ONE (10:05)
[2021-02-20] MEDS ORDERED: methaDONE HCL 10 MG TABLET ONE (10:05)
[2021-02-20] MEDS: diazePAM 5 MG TABLET PO SCH ×3 (10:27→22:51)
[2021-02-20] MEDS: hydrOXYzine PAMOATE 25 MG CAPSULE (FP) PO PRN ×2 (10:27→22:52)
[2021-02-20] MEDS: PRENATAL VITAMINS W/ FOLIC ACID TABLET (FP) PO SCH (10:27)
[2021-02-20 10:46] LABS: CALCIUM 8.7 mg/dL (8.5-10.1)
[2021-02-20 10:49] LABS: CREATININE 0.7 mg/dL (0.55-1.3)
[2021-02-20 10:50] LABS: BILIRUBIN,TOTAL 1.7 mg/dL (0.2-1); TOT PROT 6.7 g/dl (6.4-8.2)
[2021-02-20 10:54] LABS: HEMATOCRIT 35.3 % (35.4-49); MCH 30.8 pg (25.7-33.7); MCHC 34.1 g/dl (32.0-35.9); MEAN CELL VOLUME 90.3 fl (80-96); MEAN PLT VOLUME 9.3 fl (7.5-11.1); PLATELET COUNT 171 10^3/uL (134-434); RBC 3.91 M/mm3 (4.00-5.60); RDW 15.7 % (11.9-15.9); WHITE BLOOD COUNT 5.1 K/mm3 (4.0-10.0)
[2021-02-20 11:15] LABS: ALBUMIN 3.2 g/dl (3.4-5.0)
[2021-02-20] MEDS ORDERED: FLU VACC QS2021-22(6MOS UP)/PF 60 MCG/0.5 ML SYRINGE IM ONE (12:00)
[2021-02-21] MEDS ORDERED: diazePAM 5 MG TABLET PO PRN (00:01)
[2021-02-21] MEDS ORDERED: methaDONE HCL 10 MG TABLET ONE (04:03)
[2021-02-21] MEDS ORDERED: methaDONE HCL 40 MG DISPERSABLE TABLET ONE (04:04)
[2021-02-21] MEDS: methaDONE 40 MG, methaDONE 20 MG PO SCH (05:44)
[2021-02-21] MEDS: diazePAM 5 MG TABLET PO SCH ×4 (05:45→22:25)
[2021-02-21] MEDS ORDERED: methaDONE HCL 40 MG DISPERSABLE TABLET PO SCH (06:00)
[2021-02-21] MEDS: hydrOXYzine PAMOATE 25 MG CAPSULE (FP) PO PRN ×2 (10:37→17:57)
[2021-02-21] MEDS: METHOCARBAMOL 500 MG TABLET PO PRN ×2 (10:37→17:59)
[2021-02-21] MEDS: PRENATAL VITAMINS W/ FOLIC ACID TABLET (FP) PO SCH (10:39)
[2021-02-21] MEDS: THIAMINE HCL 100 MG TABLET (FP) PO SCH (22:25)
[2021-02-21] MEDS: MELATONIN 5 MG TABLETS PO SCH (22:25)
[2021-02-22] MEDS ORDERED: diazePAM 5 MG TABLET PO PRN (00:01)
[2021-02-22] MEDS ORDERED: methaDONE HCL 40 MG DISPERSABLE TABLET ONE (04:06)
[2021-02-22] MEDS ORDERED: methaDONE HCL 10 MG TABLET ONE (04:06)
[2021-02-22] MEDS: methaDONE 40 MG, methaDONE 20 MG PO SCH (05:21)
[2021-02-22] MEDS: diazePAM 5 MG TABLET PO SCH ×3 (05:21→22:46)
[2021-02-22] MEDS: METHOCARBAMOL 500 MG TABLET PO PRN (10:09)
[2021-02-22] MEDS: PRENATAL VITAMINS W/ FOLIC ACID TABLET (FP) PO SCH (10:09)
[2021-02-22] MEDS: THIAMINE HCL 100 MG TABLET (FP) PO SCH (22:45)
[2021-02-22] MEDS: MELATONIN 5 MG TABLETS PO SCH (22:45)
[2021-02-23] MEDS ORDERED: methaDONE HCL 10 MG TABLET ONE (04:07)
[2021-02-23] MEDS ORDERED: methaDONE HCL 40 MG DISPERSABLE TABLET ONE (04:07)
[2021-02-23] MEDS: methaDONE 40 MG, methaDONE 20 MG PO SCH (05:23)
[2021-02-23] MEDS: diazePAM 5 MG TABLET PO SCH ×2 (05:23→17:57)
[2021-02-23] MEDS: PRENATAL VITAMINS W/ FOLIC ACID TABLET (FP) PO SCH (10:14)
[2021-02-23] MEDS: MELATONIN 5 MG TABLETS PO SCH (22:23)
[2021-02-23] MEDS: THIAMINE HCL 100 MG TABLET (FP) PO SCH (22:23)
[2021-02-24] MEDS ORDERED: methaDONE HCL 10 MG TABLET ONE (04:08)
[2021-02-24] MEDS ORDERED: methaDONE HCL 40 MG DISPERSABLE TABLET ONE (04:08)
[2021-02-24] MEDS: methaDONE 40 MG, methaDONE 20 MG PO SCH (05:31)
[2021-02-24] MEDS ORDERED: diazePAM 5 MG TABLET PO ONE (06:00)
[2021-02-24] MEDS: hydrOXYzine PAMOATE 25 MG CAPSULE (FP) PO PRN (10:14)
[2021-02-24] MEDS: PRENATAL VITAMINS W/ FOLIC ACID TABLET (FP) PO SCH (10:15)
[2021-02-24 12:39] VITALS: BP 107/68; PULSE 64; TEMP 97.8
== END 2021-02-24 12:10 | disposition other institution (70) | DRG 773 ==
LOC: YASAS 16:08 → Y6N 02-20 01:43 → UNDOADMIN 02-20 01:43
PROVIDERS: ADMIT Allergy & Immunology; ATTEND Allergy & Immunology
PROC: HZ2ZZZZ Detoxification Services for Substance Abuse Treatment (ICD-10-PCS; principal; 2021-02-20)
DX: F13.230 Sedative, hypnotic or anxiolytic dependence with withdrawal, uncomplicated (principal); F11.20 Opioid dependence, uncomplicated; F17.210 Nicotine dependence, cigarettes, uncomplicated; Z91.013 Allergy to seafood; Z91.018 Allergy to other foods
CPT/HCPCS: 36415; 80053; 85027; 86780; 90686; C9803; G0008; U0003; U0005

== ENCOUNTER 2021-02-24 12:24 | Inpatient (IN) | payer OTHER ==
[2021-02-24] MEDS ORDERED: MAG HYDROX/AL HYDROX/SIMETH 30 ML UNIT-DOSE CUP PO PRN (14:31)
[2021-02-24] MEDS ORDERED: guaiFENesin 200 MG/10 ML 10 ML UNIT-DOSE CUPS PO PRN (14:31)
[2021-02-24] MEDS ORDERED: ACETAMINOPHEN 325 MG TABLET (FP) PO PRN (14:31)
[2021-02-24] MEDS ORDERED: MAGNESIUM HYDROX 2400MG/30ML ORAL SUSPENSION 30 ML CUP PO PRN (14:31)
[2021-02-24] MEDS ORDERED: P-EPHED 60MG/TRIPROLIDI 2.5MG TABLET PO PRN (14:31)
[2021-02-24] MEDS ORDERED: IBUPROFEN 400 MG TABLET (FP) PO PRN (14:31)
[2021-02-24] MEDS ORDERED: LOPERAMIDE HCL 2 MG CAPSULE PO PRN (14:31)
[2021-02-24] MEDS ORDERED: MAGNESIUM CITRATE 300 ML BOTTLE PO PRN (14:31)
[2021-02-24] MEDS: hydrOXYzine PAMOATE 25 MG CAPSULE (FP) PO SCH ×2 (17:43→21:38)
[2021-02-24] MEDS: THIAMINE HCL 100 MG TABLET (FP) PO SCH (21:38)
[2021-02-24] MEDS: MELATONIN 5 MG TABLETS PO SCH (21:38)
[2021-02-25] MEDS ORDERED: methaDONE 40 MG, methaDONE 20 MG PO SCH (06:00)
[2021-02-25] MEDS ORDERED: PATIENT'S OWN MEDICATION (NON-FORMULARY) (Methadone 60 MG) PO SCH (06:00)
[2021-02-25] MEDS: hydrOXYzine PAMOATE 25 MG CAPSULE (FP) PO SCH ×5 (06:09→22:00)
[2021-02-25] MEDS ORDERED: methaDONE HCL 10 MG TABLET ONE (06:13)
[2021-02-25] MEDS ORDERED: methaDONE HCL 40 MG DISPERSABLE TABLET ONE (06:13)
[2021-02-25] MEDS: NICOTINE 7 MG/24 HOURS TOPICAL PATCH TD SCH (09:59)
[2021-02-25] MEDS: PRENATAL VITAMINS W/ FOLIC ACID TABLET (FP) PO SCH (09:59)
[2021-02-25] MEDS ORDERED: PNEUMOCOCCAL 23 VACCINE 0.5 ML VIAL IM ONE (12:00)
[2021-02-25] MEDS ORDERED: PNEUMOC 13-VAL CONJ-DIP CRM/PF 0.5 ML DISP.SYRIN IM ONE (12:00)
[2021-02-25] MEDS ORDERED: methaDONE HCL 10 MG TABLET PO ONE (12:10)
[2021-02-25] MEDS: THIAMINE HCL 100 MG TABLET (FP) PO SCH (21:31)
[2021-02-25] MEDS: MELATONIN 5 MG TABLETS PO SCH (21:31)
[2021-02-26] MEDS ORDERED: methaDONE HCL 10 MG TABLET PO ONE (06:00)
[2021-02-26] MEDS ORDERED: methaDONE 40 MG, methaDONE 30 MG PO ONE (06:00)
[2021-02-26] MEDS: hydrOXYzine PAMOATE 25 MG CAPSULE (FP) PO SCH ×5 (06:01→21:45)
[2021-02-26] MEDS ORDERED: methaDONE HCL 10 MG TABLET ONE (06:07)
[2021-02-26] MEDS ORDERED: methaDONE HCL 40 MG DISPERSABLE TABLET ONE (06:08)
[2021-02-26] MEDS: NICOTINE 7 MG/24 HOURS TOPICAL PATCH TD SCH (09:49)
[2021-02-26] MEDS: PRENATAL VITAMINS W/ FOLIC ACID TABLET (FP) PO SCH (09:49)
[2021-02-26] MEDS: MELATONIN 5 MG TABLETS PO SCH (21:45)
[2021-02-26] MEDS: THIAMINE HCL 100 MG TABLET (FP) PO SCH (21:45)
[2021-02-27] MEDS ORDERED: methaDONE HCL 40 MG DISPERSABLE TABLET PO ONE (06:00)
[2021-02-27] MEDS: hydrOXYzine PAMOATE 25 MG CAPSULE (FP) PO SCH ×5 (06:16→21:52)
[2021-02-27] MEDS: PRENATAL VITAMINS W/ FOLIC ACID TABLET (FP) PO SCH (10:02)
[2021-02-27] MEDS: NICOTINE 7 MG/24 HOURS TOPICAL PATCH TD SCH (10:03)
[2021-02-27] MEDS: MELATONIN 5 MG TABLETS PO SCH (21:52)
[2021-02-27] MEDS: THIAMINE HCL 100 MG TABLET (FP) PO SCH (21:53)
[2021-02-28] MEDS ORDERED: methaDONE HCL 10 MG TABLET PO ONE (06:00)
[2021-02-28] MEDS ORDERED: methaDONE 80 MG, methaDONE 10 MG PO ONE (06:00)
[2021-02-28] MEDS ORDERED: methaDONE HCL 10 MG TABLET ONE (06:23)
[2021-02-28] MEDS ORDERED: methaDONE HCL 40 MG DISPERSABLE TABLET ONE (06:23)
[2021-02-28] MEDS: hydrOXYzine PAMOATE 25 MG CAPSULE (FP) PO SCH ×5 (06:25→21:43)
[2021-02-28] MEDS: NICOTINE 7 MG/24 HOURS TOPICAL PATCH TD SCH (10:01)
[2021-02-28] MEDS: PRENATAL VITAMINS W/ FOLIC ACID TABLET (FP) PO SCH (10:01)
[2021-02-28] MEDS: THIAMINE HCL 100 MG TABLET (FP) PO SCH (21:43)
[2021-02-28] MEDS: MELATONIN 5 MG TABLETS PO SCH (21:43)
[2021-03-01] MEDS ORDERED: methaDONE 80 MG, methaDONE 20 MG PO ONE (06:00)
[2021-03-01] MEDS ORDERED: methaDONE HCL 10 MG TABLET PO ONE (06:00)
[2021-03-01] MEDS ORDERED: methaDONE HCL 40 MG DISPERSABLE TABLET ONE (06:19)
[2021-03-01] MEDS ORDERED: methaDONE HCL 10 MG TABLET ONE (06:19)
[2021-03-01] MEDS: PRENATAL VITAMINS W/ FOLIC ACID TABLET (FP) PO SCH (10:13)
[2021-03-01] MEDS: NICOTINE 7 MG/24 HOURS TOPICAL PATCH TD SCH (10:13)
[2021-03-01] MEDS: NICOTINE 10 MG CARTRIDGE (INHALER) IH PRN (10:14)
[2021-03-01] MEDS: hydrOXYzine PAMOATE 25 MG CAPSULE (FP) PO PRN (22:44)
[2021-03-01] MEDS: MELATONIN 5 MG TABLETS PO SCH (22:44)
[2021-03-01] MEDS: THIAMINE HCL 100 MG TABLET (FP) PO SCH (22:44)
[2021-03-02] MEDS ORDERED: methaDONE HCL 10 MG TABLET PO ONE (06:00)
[2021-03-02] MEDS ORDERED: methaDONE HCL 10 MG TABLET ONE (06:32)
[2021-03-02] MEDS ORDERED: methaDONE HCL 40 MG DISPERSABLE TABLET ONE (06:32)
[2021-03-02] MEDS: NICOTINE 7 MG/24 HOURS TOPICAL PATCH TD SCH (09:27)
[2021-03-02] MEDS: PRENATAL VITAMINS W/ FOLIC ACID TABLET (FP) PO SCH (09:27)
[2021-03-02] MEDS: NICOTINE 10 MG CARTRIDGE (INHALER) IH PRN ×2 (09:28→21:13)
[2021-03-02] MEDS: hydrOXYzine PAMOATE 25 MG CAPSULE (FP) PO PRN (18:35)
[2021-03-02] MEDS: MELATONIN 5 MG TABLETS PO SCH (21:13)
[2021-03-02] MEDS: THIAMINE HCL 100 MG TABLET (FP) PO SCH (21:13)
[2021-03-03] MEDS ORDERED: methaDONE HCL 40 MG DISPERSABLE TABLET PO ONE (06:00)
[2021-03-03] MEDS: PRENATAL VITAMINS W/ FOLIC ACID TABLET (FP) PO SCH (09:34)
[2021-03-03] MEDS: NICOTINE 7 MG/24 HOURS TOPICAL PATCH TD SCH (09:34)
[2021-03-03] MEDS: NICOTINE 10 MG CARTRIDGE (INHALER) IH PRN (09:36)
[2021-03-03] MEDS: MELATONIN 5 MG TABLETS PO SCH (21:10)
[2021-03-03] MEDS: THIAMINE HCL 100 MG TABLET (FP) PO SCH (21:10)
[2021-03-03] MEDS: hydrOXYzine PAMOATE 25 MG CAPSULE (FP) PO PRN (21:11)
[2021-03-04] MEDS ORDERED: methaDONE HCL 10 MG TABLET PO ONE (06:00)
[2021-03-04] MEDS ORDERED: methaDONE HCL 40 MG DISPERSABLE TABLET ONE (06:10)
[2021-03-04] MEDS ORDERED: methaDONE HCL 10 MG TABLET ONE (06:10)
[2021-03-04] MEDS: PRENATAL VITAMINS W/ FOLIC ACID TABLET (FP) PO SCH (09:42)
[2021-03-04] MEDS: NICOTINE 7 MG/24 HOURS TOPICAL PATCH TD SCH (09:42)
[2021-03-04] MEDS: NICOTINE 10 MG CARTRIDGE (INHALER) IH PRN (09:43)
[2021-03-04] MEDS: THIAMINE HCL 100 MG TABLET (FP) PO SCH (21:00)
[2021-03-04] MEDS: hydrOXYzine PAMOATE 25 MG CAPSULE (FP) PO PRN (21:01)
[2021-03-04] MEDS: MELATONIN 5 MG TABLETS PO SCH (21:02)
[2021-03-05] MEDS ORDERED: methaDONE HCL 10 MG TABLET PO ONE (06:00)
[2021-03-05] MEDS ORDERED: methaDONE HCL 10 MG TABLET ONE (06:03)
[2021-03-05] MEDS ORDERED: methaDONE HCL 40 MG DISPERSABLE TABLET ONE (06:03)
[2021-03-05] MEDS: NICOTINE 10 MG CARTRIDGE (INHALER) IH PRN ×3 (06:45→21:19)
[2021-03-05] MEDS: PRENATAL VITAMINS W/ FOLIC ACID TABLET (FP) PO SCH (09:40)
[2021-03-05] MEDS: NICOTINE 7 MG/24 HOURS TOPICAL PATCH TD SCH (09:41)
[2021-03-05] MEDS: THIAMINE HCL 100 MG TABLET (FP) PO SCH (21:17)
[2021-03-05] MEDS: hydrOXYzine PAMOATE 25 MG CAPSULE (FP) PO PRN (21:17)
[2021-03-05] MEDS: MELATONIN 5 MG TABLETS PO SCH (21:17)
[2021-03-06] MEDS ORDERED: methaDONE HCL 10 MG TABLET PO SCH (06:00)
[2021-03-06] MEDS ORDERED: methaDONE HCL 10 MG TABLET ONE (06:27)
[2021-03-06] MEDS ORDERED: methaDONE HCL 40 MG DISPERSABLE TABLET ONE (06:28)
[2021-03-06] MEDS: NICOTINE 10 MG CARTRIDGE (INHALER) IH PRN ×2 (09:57→21:15)
[2021-03-06] MEDS: COLLOIDAL OATMEAL 1 BAR EACH TP PRN (09:57)
[2021-03-06] MEDS: NICOTINE 7 MG/24 HOURS TOPICAL PATCH TD SCH (09:57)
[2021-03-06] MEDS: PRENATAL VITAMINS W/ FOLIC ACID TABLET (FP) PO SCH (09:57)
[2021-03-06] MEDS: THIAMINE HCL 100 MG TABLET (FP) PO SCH (21:14)
[2021-03-06] MEDS: hydrOXYzine PAMOATE 25 MG CAPSULE (FP) PO PRN (21:14)
[2021-03-06] MEDS: MELATONIN 5 MG TABLETS PO SCH (21:14)
[2021-03-07] MEDS ORDERED: methaDONE HCL 10 MG TABLET ONE (03:45)
[2021-03-07] MEDS ORDERED: methaDONE HCL 40 MG DISPERSABLE TABLET ONE (03:46)
[2021-03-07] MEDS: NICOTINE 10 MG CARTRIDGE (INHALER) IH PRN ×2 (10:00→21:20)
[2021-03-07] MEDS: PRENATAL VITAMINS W/ FOLIC ACID TABLET (FP) PO SCH (10:00)
[2021-03-07] MEDS: NICOTINE 7 MG/24 HOURS TOPICAL PATCH TD SCH (10:00)
[2021-03-07] MEDS: THIAMINE HCL 100 MG TABLET (FP) PO SCH (21:20)
[2021-03-07] MEDS: MELATONIN 5 MG TABLETS PO SCH (21:20)
[2021-03-07] MEDS: hydrOXYzine PAMOATE 25 MG CAPSULE (FP) PO PRN (21:21)
[2021-03-08] MEDS ORDERED: methaDONE HCL 40 MG DISPERSABLE TABLET ONE (03:28)
[2021-03-08] MEDS ORDERED: methaDONE HCL 10 MG TABLET ONE (03:28)
[2021-03-08] MEDS: PRENATAL VITAMINS W/ FOLIC ACID TABLET (FP) PO SCH (10:02)
[2021-03-08] MEDS: NICOTINE 7 MG/24 HOURS TOPICAL PATCH TD SCH (10:02)
[2021-03-08] MEDS: NICOTINE 10 MG CARTRIDGE (INHALER) IH PRN ×2 (10:02→21:23)
[2021-03-08] MEDS: MELATONIN 5 MG TABLETS PO SCH (21:19)
[2021-03-08] MEDS: hydrOXYzine PAMOATE 25 MG CAPSULE (FP) PO PRN (21:22)
[2021-03-08] MEDS: THIAMINE HCL 100 MG TABLET (FP) PO SCH (21:22)
[2021-03-09] MEDS ORDERED: methaDONE HCL 40 MG DISPERSABLE TABLET ONE (03:07)
[2021-03-09] MEDS ORDERED: methaDONE HCL 10 MG TABLET ONE (03:07)
[2021-03-09] MEDS: NICOTINE 10 MG CARTRIDGE (INHALER) IH PRN (06:39)
[2021-03-09] MEDS: NICOTINE 7 MG/24 HOURS TOPICAL PATCH TD SCH (09:58)
[2021-03-09] MEDS: PRENATAL VITAMINS W/ FOLIC ACID TABLET (FP) PO SCH (09:58)
[2021-03-09] MEDS: THIAMINE HCL 100 MG TABLET (FP) PO SCH (21:32)
[2021-03-09] MEDS: MELATONIN 5 MG TABLETS PO SCH (21:32)
[2021-03-09] MEDS: hydrOXYzine PAMOATE 25 MG CAPSULE (FP) PO PRN (21:32)
[2021-03-10] MEDS ORDERED: methaDONE HCL 10 MG TABLET ONE (03:18)
[2021-03-10] MEDS ORDERED: methaDONE HCL 40 MG DISPERSABLE TABLET ONE (03:18)
[2021-03-10] MEDS: PRENATAL VITAMINS W/ FOLIC ACID TABLET (FP) PO SCH (10:01)
[2021-03-10] MEDS: NICOTINE 10 MG CARTRIDGE (INHALER) IH PRN (10:02)
[2021-03-10] MEDS: NICOTINE 7 MG/24 HOURS TOPICAL PATCH TD SCH (10:02)
[2021-03-10] MEDS: THIAMINE HCL 100 MG TABLET (FP) PO SCH (21:22)
[2021-03-10] MEDS: hydrOXYzine PAMOATE 25 MG CAPSULE (FP) PO PRN (21:22)
[2021-03-10] MEDS: MELATONIN 5 MG TABLETS PO SCH (21:22)
[2021-03-11] MEDS ORDERED: methaDONE HCL 40 MG DISPERSABLE TABLET ONE (05:09)
[2021-03-11] MEDS ORDERED: methaDONE HCL 10 MG TABLET ONE (05:09)
[2021-03-11] MEDS: NICOTINE 7 MG/24 HOURS TOPICAL PATCH TD SCH (09:56)
[2021-03-11] MEDS: PRENATAL VITAMINS W/ FOLIC ACID TABLET (FP) PO SCH (09:56)
[2021-03-11] MEDS: NICOTINE 10 MG CARTRIDGE (INHALER) IH PRN (09:56)
[2021-03-11] MEDS: hydrOXYzine PAMOATE 25 MG CAPSULE (FP) PO PRN (21:25)
[2021-03-11] MEDS: MELATONIN 5 MG TABLETS PO SCH (21:25)
[2021-03-11] MEDS: THIAMINE HCL 100 MG TABLET (FP) PO SCH (21:25)
[2021-03-12] MEDS ORDERED: methaDONE HCL 10 MG TABLET ONE (03:08)
[2021-03-12] MEDS ORDERED: methaDONE HCL 40 MG DISPERSABLE TABLET ONE (03:09)
[2021-03-12] MEDS: NICOTINE 7 MG/24 HOURS TOPICAL PATCH TD SCH (09:57)
[2021-03-12] MEDS: PRENATAL VITAMINS W/ FOLIC ACID TABLET (FP) PO SCH (09:57)
[2021-03-12] MEDS: NICOTINE 10 MG CARTRIDGE (INHALER) IH PRN (10:51)
[2021-03-12] MEDS: MELATONIN 5 MG TABLETS PO SCH (21:13)
[2021-03-12] MEDS: THIAMINE HCL 100 MG TABLET (FP) PO SCH (21:13)
[2021-03-12] MEDS: hydrOXYzine PAMOATE 25 MG CAPSULE (FP) PO PRN (21:13)
[2021-03-13] MEDS ORDERED: methaDONE HCL 40 MG DISPERSABLE TABLET ONE (05:59)
[2021-03-13] MEDS ORDERED: methaDONE HCL 10 MG TABLET ONE (05:59)
[2021-03-13] MEDS: NICOTINE 7 MG/24 HOURS TOPICAL PATCH TD SCH (10:24)
[2021-03-13] MEDS: PRENATAL VITAMINS W/ FOLIC ACID TABLET (FP) PO SCH (10:24)
[2021-03-13] MEDS: NICOTINE 10 MG CARTRIDGE (INHALER) IH PRN (10:25)
[2021-03-13] MEDS: THIAMINE HCL 100 MG TABLET (FP) PO SCH (21:33)
[2021-03-13] MEDS: MELATONIN 5 MG TABLETS PO SCH (21:34)
[2021-03-13] MEDS: hydrOXYzine PAMOATE 25 MG CAPSULE (FP) PO PRN (21:34)
[2021-03-14] MEDS ORDERED: methaDONE HCL 10 MG TABLET ONE (03:26)
[2021-03-14] MEDS ORDERED: methaDONE HCL 40 MG DISPERSABLE TABLET ONE (03:26)
[2021-03-14] MEDS: PRENATAL VITAMINS W/ FOLIC ACID TABLET (FP) PO SCH (09:50)
[2021-03-14] MEDS: NICOTINE 7 MG/24 HOURS TOPICAL PATCH TD SCH (09:50)
[2021-03-14] MEDS: NICOTINE 10 MG CARTRIDGE (INHALER) IH PRN (19:05)
[2021-03-14] MEDS: MELATONIN 5 MG TABLETS PO SCH (21:38)
[2021-03-14] MEDS: THIAMINE HCL 100 MG TABLET (FP) PO SCH (21:38)
[2021-03-14] MEDS: hydrOXYzine PAMOATE 25 MG CAPSULE (FP) PO PRN (21:38)
[2021-03-15] MEDS ORDERED: methaDONE HCL 10 MG TABLET ONE (05:33)
[2021-03-15] MEDS ORDERED: methaDONE HCL 40 MG DISPERSABLE TABLET ONE (05:33)
[2021-03-15] MEDS: NICOTINE 10 MG CARTRIDGE (INHALER) IH PRN (07:41)
[2021-03-15] MEDS: NICOTINE 7 MG/24 HOURS TOPICAL PATCH TD SCH (09:47)
[2021-03-15] MEDS: PRENATAL VITAMINS W/ FOLIC ACID TABLET (FP) PO SCH (09:47)
[2021-03-15] MEDS: THIAMINE HCL 100 MG TABLET (FP) PO SCH (21:21)
[2021-03-15] MEDS: METHOCARBAMOL 500 MG TABLET PO PRN (21:21)
[2021-03-15] MEDS: MELATONIN 5 MG TABLETS PO SCH (21:21)
[2021-03-15] MEDS: hydrOXYzine PAMOATE 25 MG CAPSULE (FP) PO PRN (21:21)
[2021-03-16] MEDS ORDERED: methaDONE HCL 10 MG TABLET ONE (03:40)
[2021-03-16] MEDS ORDERED: methaDONE HCL 40 MG DISPERSABLE TABLET ONE (03:40)
[2021-03-16] MEDS: PRENATAL VITAMINS W/ FOLIC ACID TABLET (FP) PO SCH (09:53)
[2021-03-16] MEDS: NICOTINE 7 MG/24 HOURS TOPICAL PATCH TD SCH (09:53)
[2021-03-16] MEDS: METHOCARBAMOL 500 MG TABLET PO PRN ×2 (09:53→21:04)
[2021-03-16] MEDS: COLLOIDAL OATMEAL 1 BAR EACH TP PRN (10:05)
[2021-03-16] MEDS: THIAMINE HCL 100 MG TABLET (FP) PO SCH (21:04)
[2021-03-16] MEDS: MELATONIN 5 MG TABLETS PO SCH (21:04)
[2021-03-16] MEDS: hydrOXYzine PAMOATE 25 MG CAPSULE (FP) PO PRN (21:04)
[2021-03-17] MEDS ORDERED: methaDONE HCL 10 MG TABLET ONE (05:19)
[2021-03-17] MEDS ORDERED: methaDONE HCL 40 MG DISPERSABLE TABLET ONE (05:19)
[2021-03-17] MEDS: NICOTINE 7 MG/24 HOURS TOPICAL PATCH TD SCH (10:45)
[2021-03-17] MEDS: PRENATAL VITAMINS W/ FOLIC ACID TABLET (FP) PO SCH (10:45)
[2021-03-17] MEDS: METHOCARBAMOL 500 MG TABLET PO PRN ×2 (10:46→21:15)
[2021-03-17] MEDS: MELATONIN 5 MG TABLETS PO SCH (21:13)
[2021-03-17] MEDS: THIAMINE HCL 100 MG TABLET (FP) PO SCH (21:14)
[2021-03-17] MEDS: hydrOXYzine PAMOATE 25 MG CAPSULE (FP) PO PRN (21:15)
[2021-03-18] MEDS ORDERED: methaDONE HCL 40 MG DISPERSABLE TABLET ONE (06:03)
[2021-03-18] MEDS ORDERED: methaDONE HCL 10 MG TABLET ONE (06:03)
[2021-03-18] MEDS: PRENATAL VITAMINS W/ FOLIC ACID TABLET (FP) PO SCH (09:36)
[2021-03-18] MEDS: METHOCARBAMOL 500 MG TABLET PO PRN ×2 (09:36→21:22)
[2021-03-18] MEDS: NICOTINE 7 MG/24 HOURS TOPICAL PATCH TD SCH (09:36)
[2021-03-18] MEDS: MELATONIN 5 MG TABLETS PO SCH (21:21)
[2021-03-18] MEDS: THIAMINE HCL 100 MG TABLET (FP) PO SCH (21:21)
[2021-03-19] MEDS ORDERED: methaDONE HCL 40 MG DISPERSABLE TABLET ONE (02:49)
[2021-03-19] MEDS ORDERED: methaDONE HCL 10 MG TABLET ONE (02:49)
[2021-03-19 07:01] VITALS: TEMP 96.8
[2021-03-19] MEDS: METHOCARBAMOL 500 MG TABLET PO PRN ×2 (09:42→21:13)
[2021-03-19] MEDS: NICOTINE 7 MG/24 HOURS TOPICAL PATCH TD SCH (09:42)
[2021-03-19] MEDS: PRENATAL VITAMINS W/ FOLIC ACID TABLET (FP) PO SCH (09:42)
[2021-03-19] MEDS: MELATONIN 5 MG TABLETS PO SCH (21:13)
[2021-03-19] MEDS: THIAMINE HCL 100 MG TABLET (FP) PO SCH (21:13)
[2021-03-20] MEDS ORDERED: methaDONE HCL 40 MG DISPERSABLE TABLET ONE (06:27)
[2021-03-20] MEDS ORDERED: methaDONE HCL 10 MG TABLET ONE (06:27)
[2021-03-20 07:16] VITALS: BP 131/85; PULSE 71
[2021-03-20] MEDS: PRENATAL VITAMINS W/ FOLIC ACID TABLET (FP) PO SCH (10:02)
[2021-03-20] MEDS: NICOTINE 7 MG/24 HOURS TOPICAL PATCH TD SCH (10:03)
[2021-03-20] MEDS: METHOCARBAMOL 500 MG TABLET PO PRN (10:03)
== END 2021-03-20 10:19 | disposition home or self-care (01) | DRG 772 ==
LOC: YASAS 12:24 → Y5N 12:25
PROVIDERS: ADMIT Allergy & Immunology; ATTEND Allergy & Immunology
PROC: HZ42ZZZ Group Counseling for Substance Abuse Treatment, Cognitive-Behavioral (ICD-10-PCS; principal; 2021-02-24)
DX: F13.20 Sedative, hypnotic or anxiolytic dependence, uncomplicated (principal); F11.20 Opioid dependence, uncomplicated; F17.210 Nicotine dependence, cigarettes, uncomplicated
CPT/HCPCS: 90732; C9803; G0009; U0003; U0005

== ENCOUNTER 2021-04-09 13:01 | Inpatient (IN) | payer OTHER ==
[2021-04-09 15:43] VITALS: BMI 31.2
[2021-04-09] MEDS ORDERED: MAGNESIUM HYDROX 2400MG/30ML ORAL SUSPENSION 30 ML CUP PO PRN (16:19)
[2021-04-09] MEDS ORDERED: MAG HYDROX/AL HYDROX/SIMETH 30 ML UNIT-DOSE CUP PO PRN (16:19)
[2021-04-09] MEDS ORDERED: IBUPROFEN 400 MG TABLET (FP) PO PRN (16:19)
[2021-04-09] MEDS ORDERED: P-EPHED 60MG/TRIPROLIDI 2.5MG TABLET PO PRN (16:19)
[2021-04-09] MEDS ORDERED: LOPERAMIDE HCL 2 MG CAPSULE PO PRN (16:19)
[2021-04-09] MEDS ORDERED: MAGNESIUM CITRATE 300 ML BOTTLE PO PRN (16:19)
[2021-04-09] MEDS ORDERED: ACETAMINOPHEN 325 MG TABLET (FP) PO PRN (16:19)
[2021-04-09] MEDS ORDERED: guaiFENesin 200 MG/10 ML 10 ML UNIT-DOSE CUPS PO PRN (16:19)
[2021-04-09] MEDS ORDERED: TUBERCULIN PPD 5 TU/0.1ML VIAL ID ONE (21:05)
[2021-04-09] MEDS: hydrOXYzine PAMOATE 25 MG CAPSULE (FP) PO SCH ×2 (21:11→21:12)
[2021-04-09] MEDS: THIAMINE HCL 100 MG TABLET (FP) PO SCH (21:12)
[2021-04-09] MEDS: MELATONIN 5 MG TABLETS PO SCH (21:13)
[2021-04-09 23:25] LABS: PH,URINE 5.5 (5.0-8.0); URINE APPEARANCE CLOUDY; URINE BILIRUBIN NEGATIVE (NEGATIVE); URINE COLOR YELLOW; URINE GLUCOSE (UA) NEGATIVE (NEGATIVE); URINE KETONE TRACE (NEGATIVE); URINE LEUK ESTERASE NEGATIVE (NEGATIVE); URINE NITRITE NEGATIVE (NEGATIVE); URINE PROTEIN NEGATIVE (NEGATIVE); URINE UROBILINOGEN 0.2 mg/dL (0.2-1.0)
[2021-04-10] MEDS: hydrOXYzine PAMOATE 25 MG CAPSULE (FP) PO SCH ×5 (06:15→22:22)
[2021-04-10] MEDS ORDERED: methaDONE HCL 10 MG TABLET PO ONE (08:38)
[2021-04-10] MEDS ORDERED: methaDONE HCL 10 MG TABLET ONE (09:12)
[2021-04-10] MEDS ORDERED: methaDONE HCL 40 MG DISPERSABLE TABLET ONE (09:13)
[2021-04-10] MEDS: PRENATAL VITAMINS W/ FOLIC ACID TABLET (FP) PO SCH (10:28)
[2021-04-10] MEDS: NICOTINE 7 MG/24 HOURS TOPICAL PATCH TD SCH (10:28)
[2021-04-10 12:03] LABS: HEMATOCRIT 38.7 % (35.4-49); HEMOGLOBIN 12.8 GM/dL (11.7-16.9); MCHC 33.2 g/dl (32.0-35.9); MEAN CELL VOLUME 90.4 fl (80-96); MEAN PLT VOLUME 9.3 fl (7.5-11.1); PLATELET COUNT 218 10^3/uL (134-434); RBC 4.28 M/mm3 (4.00-5.60); RDW 14.9 % (11.9-15.9); WHITE BLOOD COUNT 6.2 K/mm3 (4.0-10.0)
[2021-04-10 12:39] LABS: SYPHILIS W/ RPR CONF NON-REACTIVE (NONREACTIVE)
[2021-04-10 13:51] LABS: CALCIUM 9.1 mg/dL (8.5-10.1)
[2021-04-10 13:52] LABS: ALBUMIN 3.6 g/dl (3.4-5.0); BLOOD UREA NITROGEN 17.4 mg/dL (7-18)
[2021-04-10 13:54] LABS: BILIRUBIN,TOTAL 0.6 mg/dL (0.2-1); TOT PROT 7.6 g/dl (6.4-8.2)
[2021-04-10] MEDS: THIAMINE HCL 100 MG TABLET (FP) PO SCH (22:22)
[2021-04-10] MEDS: MELATONIN 5 MG TABLETS PO SCH (22:22)
[2021-04-11] MEDS ORDERED: methaDONE HCL 10 MG TABLET ONE (04:04)
[2021-04-11] MEDS ORDERED: methaDONE HCL 40 MG DISPERSABLE TABLET ONE (04:05)
[2021-04-11] MEDS ORDERED: methaDONE HCL 10 MG TABLET PO SCH (06:00)
[2021-04-11] MEDS: hydrOXYzine PAMOATE 25 MG CAPSULE (FP) PO SCH ×5 (06:32→22:01)
[2021-04-11] MEDS: PRENATAL VITAMINS W/ FOLIC ACID TABLET (FP) PO SCH (10:56)
[2021-04-11] MEDS: NICOTINE 7 MG/24 HOURS TOPICAL PATCH TD SCH (10:56)
[2021-04-11] MEDS: THIAMINE HCL 100 MG TABLET (FP) PO SCH (22:02)
[2021-04-11] MEDS: MELATONIN 5 MG TABLETS PO SCH (22:02)
[2021-04-12] MEDS ORDERED: methaDONE HCL 10 MG TABLET ONE (04:15)
[2021-04-12] MEDS ORDERED: methaDONE HCL 40 MG DISPERSABLE TABLET ONE (04:15)
[2021-04-12] MEDS: hydrOXYzine PAMOATE 25 MG CAPSULE (FP) PO SCH ×5 (06:06→21:35)
[2021-04-12] MEDS: NICOTINE 7 MG/24 HOURS TOPICAL PATCH TD SCH (09:17)
[2021-04-12] MEDS: PRENATAL VITAMINS W/ FOLIC ACID TABLET (FP) PO SCH (09:18)
[2021-04-12] MEDS: THIAMINE HCL 100 MG TABLET (FP) PO SCH (21:33)
[2021-04-12] MEDS: MELATONIN 5 MG TABLETS PO SCH (21:33)
[2021-04-13] MEDS ORDERED: methaDONE HCL 10 MG TABLET ONE (06:22)
[2021-04-13] MEDS ORDERED: methaDONE HCL 40 MG DISPERSABLE TABLET ONE (06:22)
[2021-04-13] MEDS: hydrOXYzine PAMOATE 25 MG CAPSULE (FP) PO SCH ×5 (06:24→22:19)
[2021-04-13] MEDS: NICOTINE 7 MG/24 HOURS TOPICAL PATCH TD SCH (12:34)
[2021-04-13] MEDS: PRENATAL VITAMINS W/ FOLIC ACID TABLET (FP) PO SCH (13:39)
[2021-04-13] MEDS: MELATONIN 5 MG TABLETS PO SCH (22:19)
[2021-04-13] MEDS: THIAMINE HCL 100 MG TABLET (FP) PO SCH (22:19)
[2021-04-14] MEDS ORDERED: methaDONE HCL 40 MG DISPERSABLE TABLET ONE (03:05)
[2021-04-14] MEDS ORDERED: methaDONE HCL 10 MG TABLET ONE (03:05)
[2021-04-14] MEDS: hydrOXYzine PAMOATE 25 MG CAPSULE (FP) PO SCH ×5 (06:28→21:24)
[2021-04-14] MEDS: PRENATAL VITAMINS W/ FOLIC ACID TABLET (FP) PO SCH (10:42)
[2021-04-14] MEDS: NICOTINE 7 MG/24 HOURS TOPICAL PATCH TD SCH (10:42)
[2021-04-14] MEDS: THIAMINE HCL 100 MG TABLET (FP) PO SCH (21:24)
[2021-04-14] MEDS: MELATONIN 5 MG TABLETS PO SCH (21:24)
[2021-04-15] MEDS ORDERED: methaDONE HCL 40 MG DISPERSABLE TABLET ONE (03:15)
[2021-04-15] MEDS ORDERED: methaDONE HCL 10 MG TABLET ONE (03:15)
[2021-04-15] MEDS: hydrOXYzine PAMOATE 25 MG CAPSULE (FP) PO SCH ×5 (06:13→21:30)
[2021-04-15] MEDS: NICOTINE 7 MG/24 HOURS TOPICAL PATCH TD SCH (10:37)
[2021-04-15] MEDS: PRENATAL VITAMINS W/ FOLIC ACID TABLET (FP) PO SCH (10:38)
[2021-04-15] MEDS: MELATONIN 5 MG TABLETS PO SCH (21:30)
[2021-04-15] MEDS: THIAMINE HCL 100 MG TABLET (FP) PO SCH (21:30)
[2021-04-16] MEDS ORDERED: methaDONE HCL 10 MG TABLET ONE (03:23)
[2021-04-16] MEDS ORDERED: methaDONE HCL 40 MG DISPERSABLE TABLET ONE (03:23)
[2021-04-16] MEDS: hydrOXYzine PAMOATE 25 MG CAPSULE (FP) PO SCH ×2 (06:56→11:03)
[2021-04-16] MEDS: NICOTINE 7 MG/24 HOURS TOPICAL PATCH TD SCH (10:41)
[2021-04-16] MEDS: PRENATAL VITAMINS W/ FOLIC ACID TABLET (FP) PO SCH (10:41)
[2021-04-16] MEDS: THIAMINE HCL 100 MG TABLET (FP) PO SCH (21:04)
[2021-04-16] MEDS: MELATONIN 5 MG TABLETS PO SCH (21:04)
[2021-04-16] MEDS: hydrOXYzine PAMOATE 25 MG CAPSULE (FP) PO PRN (21:05)
[2021-04-17] MEDS ORDERED: methaDONE HCL 40 MG DISPERSABLE TABLET ONE (03:08)
[2021-04-17] MEDS ORDERED: methaDONE HCL 10 MG TABLET ONE (03:08)
[2021-04-17] MEDS: NICOTINE 7 MG/24 HOURS TOPICAL PATCH TD SCH (10:52)
[2021-04-17] MEDS: PRENATAL VITAMINS W/ FOLIC ACID TABLET (FP) PO SCH (10:52)
[2021-04-17] MEDS: hydrOXYzine PAMOATE 25 MG CAPSULE (FP) PO PRN (21:13)
[2021-04-17] MEDS: THIAMINE HCL 100 MG TABLET (FP) PO SCH (21:13)
[2021-04-17] MEDS: MELATONIN 5 MG TABLETS PO SCH (21:13)
[2021-04-18] MEDS ORDERED: methaDONE HCL 10 MG TABLET ONE (04:02)
[2021-04-18] MEDS ORDERED: methaDONE HCL 40 MG DISPERSABLE TABLET ONE (04:02)
[2021-04-18] MEDS: NICOTINE 7 MG/24 HOURS TOPICAL PATCH TD SCH (10:44)
[2021-04-18] MEDS: PRENATAL VITAMINS W/ FOLIC ACID TABLET (FP) PO SCH (10:44)
[2021-04-18] MEDS: COLLOIDAL OATMEAL 1 BAR EACH TP PRN (15:35)
[2021-04-18] MEDS: MELATONIN 5 MG TABLETS PO SCH (21:24)
[2021-04-18] MEDS: THIAMINE HCL 100 MG TABLET (FP) PO SCH (21:24)
[2021-04-19] MEDS ORDERED: methaDONE HCL 10 MG TABLET ONE (04:45)
[2021-04-19] MEDS ORDERED: methaDONE HCL 40 MG DISPERSABLE TABLET ONE (04:45)
[2021-04-19] MEDS: PRENATAL VITAMINS W/ FOLIC ACID TABLET (FP) PO SCH (10:12)
[2021-04-19] MEDS: NICOTINE 7 MG/24 HOURS TOPICAL PATCH TD SCH (10:12)
[2021-04-19] MEDS: MELATONIN 5 MG TABLETS PO SCH (21:10)
[2021-04-19] MEDS: hydrOXYzine PAMOATE 25 MG CAPSULE (FP) PO PRN (21:10)
[2021-04-19] MEDS: THIAMINE HCL 100 MG TABLET (FP) PO SCH (21:10)
[2021-04-20] MEDS ORDERED: methaDONE HCL 40 MG DISPERSABLE TABLET ONE (03:24)
[2021-04-20] MEDS ORDERED: methaDONE HCL 10 MG TABLET ONE (03:24)
[2021-04-20] MEDS: NICOTINE 10 MG CARTRIDGE (INHALER) IH PRN ×2 (09:48→14:21)
[2021-04-20] MEDS: PRENATAL VITAMINS W/ FOLIC ACID TABLET (FP) PO SCH (09:48)
[2021-04-20] MEDS: hydrOXYzine PAMOATE 25 MG CAPSULE (FP) PO PRN ×2 (09:48→21:15)
[2021-04-20] MEDS: NICOTINE 7 MG/24 HOURS TOPICAL PATCH TD SCH (10:11)
[2021-04-20] MEDS: THIAMINE HCL 100 MG TABLET (FP) PO SCH (21:15)
[2021-04-20] MEDS: MELATONIN 5 MG TABLETS PO SCH (21:15)
[2021-04-21] MEDS ORDERED: methaDONE HCL 10 MG TABLET ONE (03:30)
[2021-04-21] MEDS ORDERED: methaDONE HCL 40 MG DISPERSABLE TABLET ONE (03:30)
[2021-04-21] MEDS: PRENATAL VITAMINS W/ FOLIC ACID TABLET (FP) PO SCH (10:09)
[2021-04-21] MEDS: NICOTINE 7 MG/24 HOURS TOPICAL PATCH TD SCH (10:09)
[2021-04-21] MEDS: NICOTINE 10 MG CARTRIDGE (INHALER) IH PRN (10:34)
[2021-04-21] MEDS: COLLOIDAL OATMEAL 1 BAR EACH TP PRN (16:51)
[2021-04-21] MEDS: hydrOXYzine PAMOATE 25 MG CAPSULE (FP) PO PRN (21:12)
[2021-04-21] MEDS: THIAMINE HCL 100 MG TABLET (FP) PO SCH (21:12)
[2021-04-21] MEDS: MELATONIN 5 MG TABLETS PO SCH (21:13)
[2021-04-22] MEDS ORDERED: methaDONE HCL 40 MG DISPERSABLE TABLET ONE (03:10)
[2021-04-22] MEDS ORDERED: methaDONE HCL 10 MG TABLET ONE (03:10)
[2021-04-22] MEDS: NICOTINE 10 MG CARTRIDGE (INHALER) IH PRN (08:55)
[2021-04-22] MEDS: PRENATAL VITAMINS W/ FOLIC ACID TABLET (FP) PO SCH (10:01)
[2021-04-22] MEDS: NICOTINE 7 MG/24 HOURS TOPICAL PATCH TD SCH (10:01)
[2021-04-22 14:07] LABS: SARS-CoV-2 NAA Not Detected (Not Detected)
[2021-04-22] MEDS: hydrOXYzine PAMOATE 25 MG CAPSULE (FP) PO PRN (21:05)
[2021-04-22] MEDS: THIAMINE HCL 100 MG TABLET (FP) PO SCH (21:05)
[2021-04-22] MEDS: MELATONIN 5 MG TABLETS PO SCH (21:05)
[2021-04-23] MEDS ORDERED: methaDONE HCL 10 MG TABLET ONE (03:13)
[2021-04-23] MEDS ORDERED: methaDONE HCL 40 MG DISPERSABLE TABLET ONE (03:13)
[2021-04-23] MEDS: PRENATAL VITAMINS W/ FOLIC ACID TABLET (FP) PO SCH (10:10)
[2021-04-23] MEDS: NICOTINE 7 MG/24 HOURS TOPICAL PATCH TD SCH (10:11)
[2021-04-23] MEDS: NICOTINE 10 MG CARTRIDGE (INHALER) IH PRN (10:52)
[2021-04-23] MEDS: THIAMINE HCL 100 MG TABLET (FP) PO SCH (21:08)
[2021-04-23] MEDS: MELATONIN 5 MG TABLETS PO SCH (21:08)
[2021-04-23] MEDS: hydrOXYzine PAMOATE 25 MG CAPSULE (FP) PO PRN (21:08)
[2021-04-24] MEDS ORDERED: methaDONE HCL 10 MG TABLET ONE (02:56)
[2021-04-24] MEDS ORDERED: methaDONE HCL 40 MG DISPERSABLE TABLET ONE (02:57)
[2021-04-24] MEDS: NICOTINE 7 MG/24 HOURS TOPICAL PATCH TD SCH (09:58)
[2021-04-24] MEDS: PRENATAL VITAMINS W/ FOLIC ACID TABLET (FP) PO SCH (09:58)
[2021-04-24] MEDS: NICOTINE 10 MG CARTRIDGE (INHALER) IH PRN ×2 (12:56→19:14)
[2021-04-24] MEDS: hydrOXYzine PAMOATE 25 MG CAPSULE (FP) PO PRN (21:06)
[2021-04-24] MEDS: MELATONIN 5 MG TABLETS PO SCH (21:06)
[2021-04-24] MEDS: THIAMINE HCL 100 MG TABLET (FP) PO SCH (21:06)
[2021-04-25] MEDS ORDERED: methaDONE HCL 10 MG TABLET ONE (04:06)
[2021-04-25] MEDS ORDERED: methaDONE HCL 40 MG DISPERSABLE TABLET ONE (04:07)
[2021-04-25] MEDS: PRENATAL VITAMINS W/ FOLIC ACID TABLET (FP) PO SCH (10:50)
[2021-04-25] MEDS: NICOTINE 7 MG/24 HOURS TOPICAL PATCH TD SCH (10:50)
[2021-04-25] MEDS: hydrOXYzine PAMOATE 25 MG CAPSULE (FP) PO PRN (21:01)
[2021-04-25] MEDS: THIAMINE HCL 100 MG TABLET (FP) PO SCH (21:01)
[2021-04-25] MEDS: MELATONIN 5 MG TABLETS PO SCH (21:01)
[2021-04-26] MEDS ORDERED: methaDONE HCL 40 MG DISPERSABLE TABLET ONE (05:38)
[2021-04-26] MEDS ORDERED: methaDONE HCL 10 MG TABLET ONE (05:38)
[2021-04-26] MEDS: NICOTINE 7 MG/24 HOURS TOPICAL PATCH TD SCH (10:53)
[2021-04-26] MEDS: PRENATAL VITAMINS W/ FOLIC ACID TABLET (FP) PO SCH (10:53)
[2021-04-26] MEDS: NICOTINE 10 MG CARTRIDGE (INHALER) IH PRN (18:50)
[2021-04-26] MEDS: MELATONIN 5 MG TABLETS PO SCH (21:06)
[2021-04-26] MEDS: THIAMINE HCL 100 MG TABLET (FP) PO SCH (21:06)
[2021-04-26] MEDS: hydrOXYzine PAMOATE 25 MG CAPSULE (FP) PO PRN (21:07)
[2021-04-27] MEDS ORDERED: methaDONE HCL 10 MG TABLET ONE (03:49)
[2021-04-27] MEDS ORDERED: methaDONE HCL 40 MG DISPERSABLE TABLET ONE (03:49)
[2021-04-27] MEDS: NICOTINE 10 MG CARTRIDGE (INHALER) IH PRN (06:18)
[2021-04-27] MEDS: PRENATAL VITAMINS W/ FOLIC ACID TABLET (FP) PO SCH (10:04)
[2021-04-27] MEDS: NICOTINE 7 MG/24 HOURS TOPICAL PATCH TD SCH (10:04)
[2021-04-27] MEDS: MELATONIN 5 MG TABLETS PO SCH (21:09)
[2021-04-27] MEDS: THIAMINE HCL 100 MG TABLET (FP) PO SCH (21:09)
[2021-04-27] MEDS: hydrOXYzine PAMOATE 25 MG CAPSULE (FP) PO PRN (21:09)
[2021-04-28] MEDS ORDERED: methaDONE HCL 10 MG TABLET ONE (03:13)
[2021-04-28] MEDS ORDERED: methaDONE HCL 40 MG DISPERSABLE TABLET ONE (03:14)
[2021-04-28] MEDS: PRENATAL VITAMINS W/ FOLIC ACID TABLET (FP) PO SCH (12:05)
[2021-04-28] MEDS: NICOTINE 7 MG/24 HOURS TOPICAL PATCH TD SCH (12:05)
[2021-04-28] MEDS: COLLOIDAL OATMEAL 1 BAR EACH TP PRN (16:11)
[2021-04-28] MEDS: NICOTINE 10 MG CARTRIDGE (INHALER) IH PRN (20:04)
[2021-04-28] MEDS: MELATONIN 5 MG TABLETS PO SCH (20:59)
[2021-04-28] MEDS: THIAMINE HCL 100 MG TABLET (FP) PO SCH (20:59)
[2021-04-28] MEDS: hydrOXYzine PAMOATE 25 MG CAPSULE (FP) PO PRN (20:59)
[2021-04-29] MEDS ORDERED: methaDONE HCL 40 MG DISPERSABLE TABLET ONE (03:11)
[2021-04-29] MEDS ORDERED: methaDONE HCL 10 MG TABLET ONE (03:11)
[2021-04-29] MEDS: NICOTINE 10 MG CARTRIDGE (INHALER) IH PRN (06:06)
[2021-04-29] MEDS: NICOTINE 7 MG/24 HOURS TOPICAL PATCH TD SCH (10:28)
[2021-04-29] MEDS: PRENATAL VITAMINS W/ FOLIC ACID TABLET (FP) PO SCH (10:28)
[2021-04-29] MEDS: THIAMINE HCL 100 MG TABLET (FP) PO SCH (21:02)
[2021-04-29] MEDS: MELATONIN 5 MG TABLETS PO SCH (21:02)
[2021-04-29] MEDS: hydrOXYzine PAMOATE 25 MG CAPSULE (FP) PO PRN (21:02)
[2021-04-30] MEDS ORDERED: methaDONE HCL 40 MG DISPERSABLE TABLET ONE (03:42)
[2021-04-30] MEDS ORDERED: methaDONE HCL 10 MG TABLET ONE (03:42)
[2021-04-30] MEDS: NICOTINE 10 MG CARTRIDGE (INHALER) IH PRN ×2 (06:12→17:10)
[2021-04-30] MEDS: PRENATAL VITAMINS W/ FOLIC ACID TABLET (FP) PO SCH (09:54)
[2021-04-30] MEDS: NICOTINE 7 MG/24 HOURS TOPICAL PATCH TD SCH (09:54)
[2021-04-30] MEDS: hydrOXYzine PAMOATE 25 MG CAPSULE (FP) PO PRN (21:03)
[2021-04-30] MEDS: THIAMINE HCL 100 MG TABLET (FP) PO SCH (21:03)
[2021-04-30] MEDS: MELATONIN 5 MG TABLETS PO SCH (21:03)
[2021-05-01] MEDS ORDERED: methaDONE HCL 10 MG TABLET ONE (03:47)
[2021-05-01] MEDS ORDERED: methaDONE HCL 40 MG DISPERSABLE TABLET ONE (03:48)
[2021-05-01] MEDS: NICOTINE 10 MG CARTRIDGE (INHALER) IH PRN ×2 (08:35→18:37)
[2021-05-01] MEDS: PRENATAL VITAMINS W/ FOLIC ACID TABLET (FP) PO SCH (10:34)
[2021-05-01] MEDS: NICOTINE 7 MG/24 HOURS TOPICAL PATCH TD SCH (10:34)
[2021-05-01] MEDS: MELATONIN 5 MG TABLETS PO SCH (21:15)
[2021-05-01] MEDS: hydrOXYzine PAMOATE 25 MG CAPSULE (FP) PO PRN (21:15)
[2021-05-01] MEDS: THIAMINE HCL 100 MG TABLET (FP) PO SCH (21:15)
[2021-05-02] MEDS ORDERED: methaDONE HCL 40 MG DISPERSABLE TABLET ONE (05:59)
[2021-05-02] MEDS ORDERED: methaDONE HCL 10 MG TABLET ONE (05:59)
[2021-05-02] MEDS: NICOTINE 10 MG CARTRIDGE (INHALER) IH PRN (07:28)
[2021-05-02] MEDS: PRENATAL VITAMINS W/ FOLIC ACID TABLET (FP) PO SCH (10:24)
[2021-05-02] MEDS: NICOTINE 7 MG/24 HOURS TOPICAL PATCH TD SCH (10:24)
[2021-05-02] MEDS: hydrOXYzine PAMOATE 25 MG CAPSULE (FP) PO PRN (21:38)
[2021-05-02] MEDS: THIAMINE HCL 100 MG TABLET (FP) PO SCH (21:38)
[2021-05-02] MEDS: MELATONIN 5 MG TABLETS PO SCH (21:38)
[2021-05-03] MEDS ORDERED: methaDONE HCL 10 MG TABLET ONE (04:05)
[2021-05-03] MEDS ORDERED: methaDONE HCL 40 MG DISPERSABLE TABLET ONE (04:06)
[2021-05-03] MEDS: NICOTINE 10 MG CARTRIDGE (INHALER) IH PRN ×2 (06:06→19:16)
[2021-05-03] MEDS: PRENATAL VITAMINS W/ FOLIC ACID TABLET (FP) PO SCH (10:26)
[2021-05-03] MEDS: NICOTINE 7 MG/24 HOURS TOPICAL PATCH TD SCH (10:26)
[2021-05-03] MEDS: COLLOIDAL OATMEAL 1 BAR EACH TP PRN (14:10)
[2021-05-03] MEDS: MELATONIN 5 MG TABLETS PO SCH (21:00)
[2021-05-03] MEDS: hydrOXYzine PAMOATE 25 MG CAPSULE (FP) PO PRN (21:00)
[2021-05-03] MEDS: THIAMINE HCL 100 MG TABLET (FP) PO SCH (21:00)
[2021-05-04] MEDS ORDERED: methaDONE HCL 10 MG TABLET ONE (04:10)
[2021-05-04] MEDS ORDERED: methaDONE HCL 40 MG DISPERSABLE TABLET ONE (04:11)
[2021-05-04] MEDS: NICOTINE 10 MG CARTRIDGE (INHALER) IH PRN ×2 (06:03→17:06)
[2021-05-04] MEDS: NICOTINE 7 MG/24 HOURS TOPICAL PATCH TD SCH (09:06)
[2021-05-04] MEDS: PRENATAL VITAMINS W/ FOLIC ACID TABLET (FP) PO SCH (09:06)
[2021-05-04] MEDS: THIAMINE HCL 100 MG TABLET (FP) PO SCH (21:17)
[2021-05-04] MEDS: MELATONIN 5 MG TABLETS PO SCH (21:17)
[2021-05-04] MEDS: hydrOXYzine PAMOATE 25 MG CAPSULE (FP) PO PRN (21:17)
[2021-05-05] MEDS ORDERED: methaDONE HCL 40 MG DISPERSABLE TABLET ONE (03:17)
[2021-05-05] MEDS ORDERED: methaDONE HCL 10 MG TABLET ONE (03:17)
[2021-05-05] MEDS: NICOTINE 10 MG CARTRIDGE (INHALER) IH PRN ×2 (05:54→21:27)
[2021-05-05] MEDS: NICOTINE 7 MG/24 HOURS TOPICAL PATCH TD SCH (10:13)
[2021-05-05] MEDS: PRENATAL VITAMINS W/ FOLIC ACID TABLET (FP) PO SCH (10:13)
[2021-05-05] MEDS: THIAMINE HCL 100 MG TABLET (FP) PO SCH (21:27)
[2021-05-05] MEDS: MELATONIN 5 MG TABLETS PO SCH (21:27)
[2021-05-05] MEDS: hydrOXYzine PAMOATE 25 MG CAPSULE (FP) PO PRN (21:27)
[2021-05-06] MEDS ORDERED: methaDONE HCL 10 MG TABLET ONE (03:14)
[2021-05-06] MEDS ORDERED: methaDONE HCL 40 MG DISPERSABLE TABLET ONE (03:14)
[2021-05-06] MEDS: NICOTINE 10 MG CARTRIDGE (INHALER) IH PRN ×2 (06:12→19:06)
[2021-05-06] MEDS: PRENATAL VITAMINS W/ FOLIC ACID TABLET (FP) PO SCH (11:32)
[2021-05-06] MEDS: NICOTINE 7 MG/24 HOURS TOPICAL PATCH TD SCH (11:32)
[2021-05-06] MEDS: MELATONIN 5 MG TABLETS PO SCH (21:14)
[2021-05-06] MEDS: hydrOXYzine PAMOATE 25 MG CAPSULE (FP) PO PRN (21:14)
[2021-05-06] MEDS: THIAMINE HCL 100 MG TABLET (FP) PO SCH (21:14)
[2021-05-07] MEDS ORDERED: methaDONE HCL 10 MG TABLET ONE (03:25)
[2021-05-07] MEDS ORDERED: methaDONE HCL 40 MG DISPERSABLE TABLET ONE (03:25)
[2021-05-07 07:09] VITALS: BP 137/78; PULSE 82; TEMP 97.7
[2021-05-07] MEDS: NICOTINE 10 MG CARTRIDGE (INHALER) IH PRN (07:17)
== END 2021-05-07 09:17 | disposition home or self-care (01) | DRG 772 ==
LOC: YASAS 13:01 → Y3W 20:07
PROVIDERS: ADMIT Allergy & Immunology; ATTEND Allergy & Immunology
PROC: HZ42ZZZ Group Counseling for Substance Abuse Treatment, Cognitive-Behavioral (ICD-10-PCS; principal; 2021-05-07)
DX: F13.20 Sedative, hypnotic or anxiolytic dependence, uncomplicated (principal); F11.20 Opioid dependence, uncomplicated; F17.210 Nicotine dependence, cigarettes, uncomplicated; G62.9 Polyneuropathy, unspecified; R73.09 Other abnormal glucose; Z91.013 Allergy to seafood; Z91.018 Allergy to other foods
CPT/HCPCS: 36415; 71045-TC-FY; 80053; 81003; 82962; 85027; 86780; 86803; 87522; 87811; C9803; U0003; U0005

== ENCOUNTER 2021-06-07 13:20 | Inpatient (IN) | payer OTHER ==
[2021-06-07 14:19] VITALS: BMI 28.2
[2021-06-07] MEDS ORDERED: BENZOCAINE/MENTHOL (CHLORASEPTIC ) LOZENGE MM PRN (15:20)
[2021-06-07] MEDS ORDERED: BISMUTH SUBSALICYLATE 524 MG/30 ML PO PRN (15:20)
[2021-06-07] MEDS ORDERED: METHOCARBAMOL 500 MG TABLET PO PRN (15:20)
[2021-06-07] MEDS ORDERED: MAG HYDROX/AL HYDROX/SIMETH 30 ML UNIT-DOSE CUP PO PRN (15:20)
[2021-06-07] MEDS ORDERED: MAGNESIUM HYDROX 2400MG/30ML ORAL SUSPENSION 30 ML CUP PO PRN (15:20)
[2021-06-07] MEDS ORDERED: DICYCLOMINE HCL 10 MG CAPSULE PO PRN (15:20)
[2021-06-07] MEDS ORDERED: IBUPROFEN 400 MG TABLET (FP) PO PRN (15:20)
[2021-06-07] MEDS ORDERED: LOPERAMIDE HCL 2 MG CAPSULE PO PRN (15:20)
[2021-06-07] MEDS ORDERED: ONDANSETRON *ODT* 4 MG TABLET SL PRN (15:20)
[2021-06-07] MEDS ORDERED: MAGNESIUM CITRATE 300 ML BOTTLE PO PRN (15:20)
[2021-06-07] MEDS ORDERED: ACETAMINOPHEN 325 MG TABLET (FP) PO PRN ×2 (15:20)
[2021-06-07] MEDS ORDERED: COLLOIDAL OATMEAL 1 BAR EACH TP PRN (17:30)
[2021-06-07] MEDS: diazePAM 5 MG TABLET PO SCH ×2 (17:44→22:24)
[2021-06-07] MEDS: THIAMINE HCL 100 MG TABLET (FP) PO SCH (22:24)
[2021-06-08] MEDS ORDERED: methaDONE HCL 10 MG TABLET PO ONE (06:00)
[2021-06-08] MEDS ORDERED: methaDONE HCL 10 MG TABLET PO SCH (06:00)
[2021-06-08] MEDS: diazePAM 5 MG TABLET PO SCH ×4 (06:27→22:11)
[2021-06-08] MEDS ORDERED: methaDONE HCL 10 MG TABLET ONE (12:28)
[2021-06-08] MEDS ORDERED: methaDONE HCL 40 MG DISPERSABLE TABLET ONE (12:29)
[2021-06-08] MEDS: PRENATAL VITAMINS W/ FOLIC ACID TABLET (FP) PO SCH (12:36)
[2021-06-08 13:44] LABS: HEMATOCRIT 38.9 % (35.4-49); HEMOGLOBIN 13.4 GM/dL (11.7-16.9); MCH 30.7 pg (25.7-33.7); MCHC 34.5 g/dl (32.0-35.9); MEAN CELL VOLUME 89.2 fl (80-96); MEAN PLT VOLUME 8.9 fl (7.5-11.1); PLATELET COUNT 216 10^3/uL (134-434); RBC 4.36 M/mm3 (4.00-5.60); RDW 14.8 % (11.9-15.9); WHITE BLOOD COUNT 5.9 K/mm3 (4.0-10.0)
[2021-06-08 13:50] LABS: ALBUMIN 3.5 g/dl (3.4-5.0); CALCIUM 9.2 mg/dL (8.5-10.1)
[2021-06-08 13:51] LABS: BLOOD UREA NITROGEN 9.1 mg/dL (7-18)
[2021-06-08 13:53] LABS: CREATININE 0.9 mg/dL (0.55-1.3)
[2021-06-08 13:55] LABS: BILIRUBIN,TOTAL 0.8 mg/dL (0.2-1); TOT PROT 7.5 g/dl (6.4-8.2)
[2021-06-08] MEDS: MELATONIN 5 MG TABLETS PO PRN (22:11)
[2021-06-08] MEDS: THIAMINE HCL 100 MG TABLET (FP) PO SCH (22:11)
[2021-06-09] MEDS: diazePAM 5 MG TABLET PO SCH ×3 (05:44→22:13)
[2021-06-09] MEDS ORDERED: methaDONE HCL 10 MG TABLET ONE (09:16)
[2021-06-09] MEDS ORDERED: methaDONE HCL 40 MG DISPERSABLE TABLET ONE (09:17)
[2021-06-09] MEDS ORDERED: methaDONE HCL 10 MG TABLET PO ONE (10:00)
[2021-06-09] MEDS: PRENATAL VITAMINS W/ FOLIC ACID TABLET (FP) PO SCH (10:04)
[2021-06-09] MEDS: diazePAM 5 MG TABLET PO PRN (17:37)
[2021-06-09] MEDS: MELATONIN 5 MG TABLETS PO PRN (22:13)
[2021-06-09] MEDS: THIAMINE HCL 100 MG TABLET (FP) PO SCH (22:13)
[2021-06-09] MEDS: hydrOXYzine PAMOATE 25 MG CAPSULE (FP) PO PRN (22:13)
[2021-06-10] MEDS ORDERED: methaDONE HCL 10 MG TABLET ONE (04:10)
[2021-06-10] MEDS ORDERED: methaDONE HCL 40 MG DISPERSABLE TABLET ONE (04:11)
[2021-06-10] MEDS: diazePAM 5 MG TABLET PO SCH ×2 (05:26→17:33)
[2021-06-10] MEDS ORDERED: methaDONE HCL 10 MG TABLET PO SCH (06:00)
[2021-06-10 10:10] LABS: SARS-CoV-2 NAA Not Detected (Not Detected)
[2021-06-10] MEDS: PRENATAL VITAMINS W/ FOLIC ACID TABLET (FP) PO SCH (10:29)
[2021-06-10] MEDS: diazePAM 5 MG TABLET PO PRN (10:58)
[2021-06-10] MEDS: THIAMINE HCL 100 MG TABLET (FP) PO SCH (22:20)
[2021-06-10] MEDS: hydrOXYzine PAMOATE 25 MG CAPSULE (FP) PO PRN (22:21)
[2021-06-10] MEDS: MELATONIN 5 MG TABLETS PO PRN (22:21)
[2021-06-11] MEDS ORDERED: methaDONE HCL 10 MG TABLET ONE (04:10)
[2021-06-11] MEDS ORDERED: methaDONE HCL 40 MG DISPERSABLE TABLET ONE (04:10)
[2021-06-11] MEDS ORDERED: diazePAM 5 MG TABLET PO ONE (06:00)
[2021-06-11] MEDS: PRENATAL VITAMINS W/ FOLIC ACID TABLET (FP) PO SCH (10:19)
[2021-06-11 13:37] VITALS: BP 103/69; PULSE 59; TEMP 97.3
== END 2021-06-11 12:45 | disposition other institution (70) | DRG 773 ==
LOC: YASAS 13:20 → Y3N 15:40 → Y6N 16:57
PROVIDERS: ADMIT Allergy & Immunology; ATTEND Allergy & Immunology
PROC: HZ2ZZZZ Detoxification Services for Substance Abuse Treatment (ICD-10-PCS; principal; 2021-06-07)
DX: F13.230 Sedative, hypnotic or anxiolytic dependence with withdrawal, uncomplicated (principal); F11.20 Opioid dependence, uncomplicated; F17.210 Nicotine dependence, cigarettes, uncomplicated; F19.282 Other psychoactive substance dependence with psychoactive substance-induced sleep disorder; G62.9 Polyneuropathy, unspecified; J45.909 Unspecified asthma, uncomplicated; M19.90 Unspecified osteoarthritis, unspecified site; B18.2 Chronic viral hepatitis C; Z88.7 Allergy status to serum and vaccine; Z91.013 Allergy to seafood; Z91.018 Allergy to other foods; Z56.0 Unemployment, unspecified; Z59.00 Homelessness unspecified
CPT/HCPCS: 36415; 80053; 82947; 83036; 85027; 86780; C9803-CS; U0003; U0005

== ENCOUNTER 2021-06-11 13:10 | Inpatient (IN) | payer OTHER ==
[2021-06-11] MEDS ORDERED: ACETAMINOPHEN 325 MG TABLET (FP) PO PRN (16:23)
[2021-06-11] MEDS ORDERED: MAG HYDROX/AL HYDROX/SIMETH 30 ML UNIT-DOSE CUP PO PRN (16:23)
[2021-06-11] MEDS ORDERED: BENZOCAINE/MENTHOL (CHLORASEPTIC ) LOZENGE MM PRN (16:23)
[2021-06-11] MEDS ORDERED: MAGNESIUM CITRATE 300 ML BOTTLE PO PRN (16:23)
[2021-06-11] MEDS ORDERED: P-EPHED 60MG/TRIPROLIDI 2.5MG TABLET PO PRN (16:23)
[2021-06-11] MEDS ORDERED: LOPERAMIDE HCL 2 MG CAPSULE PO PRN (16:23)
[2021-06-11] MEDS ORDERED: guaiFENesin 200 MG/10 ML 10 ML UNIT-DOSE CUPS PO PRN (16:23)
[2021-06-11] MEDS ORDERED: MAGNESIUM HYDROX 2400MG/30ML ORAL SUSPENSION 30 ML CUP PO PRN (16:23)
[2021-06-11] MEDS ORDERED: ALBUTEROL SO4 HFA INHALER IH PRN (16:24)
[2021-06-11] MEDS: MELATONIN 5 MG TABLETS PO SCH (21:16)
[2021-06-11] MEDS: hydrOXYzine PAMOATE 25 MG CAPSULE (FP) PO PRN (21:16)
[2021-06-11] MEDS: THIAMINE HCL 100 MG TABLET (FP) PO SCH (21:16)
[2021-06-12] MEDS ORDERED: methaDONE HCL 10 MG TABLET PO SCH (06:00)
[2021-06-12] MEDS ORDERED: methaDONE HCL 10 MG TABLET ONE (06:35)
[2021-06-12] MEDS ORDERED: methaDONE HCL 40 MG DISPERSABLE TABLET ONE (06:35)
[2021-06-12] MEDS: NICOTINE 10 MG CARTRIDGE (INHALER) IH PRN ×2 (10:23→21:41)
[2021-06-12] MEDS: PRENATAL VITAMINS W/ FOLIC ACID TABLET (FP) PO SCH (10:23)
[2021-06-12] MEDS: NICOTINE 7 MG/24 HOURS TOPICAL PATCH TD SCH (10:23)
[2021-06-12] MEDS: hydrOXYzine PAMOATE 25 MG CAPSULE (FP) PO PRN ×2 (10:24→21:41)
[2021-06-12 11:29] LABS: HIV INTERPRETATION NEGATIVE (NEGATIVE)
[2021-06-12] MEDS: MELATONIN 5 MG TABLETS PO SCH (21:40)
[2021-06-12] MEDS: THIAMINE HCL 100 MG TABLET (FP) PO SCH (21:40)
[2021-06-13] MEDS ORDERED: methaDONE HCL 10 MG TABLET ONE (03:43)
[2021-06-13] MEDS ORDERED: methaDONE HCL 40 MG DISPERSABLE TABLET ONE (03:43)
[2021-06-13] MEDS: PRENATAL VITAMINS W/ FOLIC ACID TABLET (FP) PO SCH (09:59)
[2021-06-13] MEDS: NICOTINE 7 MG/24 HOURS TOPICAL PATCH TD SCH (09:59)
[2021-06-13] MEDS: hydrOXYzine PAMOATE 25 MG CAPSULE (FP) PO PRN ×2 (10:00→21:09)
[2021-06-13] MEDS: THIAMINE HCL 100 MG TABLET (FP) PO SCH (21:09)
[2021-06-13] MEDS: MELATONIN 5 MG TABLETS PO SCH (21:09)
[2021-06-14] MEDS ORDERED: methaDONE HCL 40 MG DISPERSABLE TABLET ONE (03:50)
[2021-06-14] MEDS ORDERED: methaDONE HCL 10 MG TABLET ONE (03:50)
[2021-06-14] MEDS: PRENATAL VITAMINS W/ FOLIC ACID TABLET (FP) PO SCH (10:11)
[2021-06-14] MEDS: NICOTINE 7 MG/24 HOURS TOPICAL PATCH TD SCH (10:11)
[2021-06-14] MEDS: MELATONIN 5 MG TABLETS PO SCH (21:20)
[2021-06-14] MEDS: THIAMINE HCL 100 MG TABLET (FP) PO SCH (21:20)
[2021-06-14] MEDS: hydrOXYzine PAMOATE 25 MG CAPSULE (FP) PO PRN (21:20)
[2021-06-15 00:06] LABS: SARS-CoV-2 NAA Not Detected (Not Detected)
[2021-06-15] MEDS ORDERED: methaDONE HCL 10 MG TABLET ONE (03:50)
[2021-06-15] MEDS ORDERED: methaDONE HCL 40 MG DISPERSABLE TABLET ONE (03:50)
[2021-06-15] MEDS: NICOTINE 7 MG/24 HOURS TOPICAL PATCH TD SCH (09:59)
[2021-06-15] MEDS: PRENATAL VITAMINS W/ FOLIC ACID TABLET (FP) PO SCH (09:59)
[2021-06-15] MEDS: NICOTINE 10 MG CARTRIDGE (INHALER) IH PRN (09:59)
[2021-06-15] MEDS: hydrOXYzine PAMOATE 25 MG CAPSULE (FP) PO PRN (21:12)
[2021-06-15] MEDS: MELATONIN 5 MG TABLETS PO SCH (21:12)
[2021-06-15] MEDS: THIAMINE HCL 100 MG TABLET (FP) PO SCH (21:12)
[2021-06-16] MEDS ORDERED: methaDONE HCL 40 MG DISPERSABLE TABLET ONE (05:54)
[2021-06-16] MEDS ORDERED: methaDONE HCL 10 MG TABLET ONE (05:54)
[2021-06-16] MEDS: COLLOIDAL OATMEAL 1 BAR EACH TP PRN (09:58)
[2021-06-16] MEDS: NICOTINE 7 MG/24 HOURS TOPICAL PATCH TD SCH (09:58)
[2021-06-16] MEDS: PRENATAL VITAMINS W/ FOLIC ACID TABLET (FP) PO SCH (09:58)
[2021-06-16] MEDS: MELATONIN 5 MG TABLETS PO SCH (21:16)
[2021-06-16] MEDS: THIAMINE HCL 100 MG TABLET (FP) PO SCH (21:16)
[2021-06-16] MEDS: hydrOXYzine PAMOATE 25 MG CAPSULE (FP) PO PRN (21:17)
[2021-06-17] MEDS ORDERED: methaDONE HCL 40 MG DISPERSABLE TABLET ONE (03:42)
[2021-06-17] MEDS ORDERED: methaDONE HCL 10 MG TABLET ONE (03:42)
[2021-06-17] MEDS: NICOTINE 10 MG CARTRIDGE (INHALER) IH PRN (10:09)
[2021-06-17] MEDS: PRENATAL VITAMINS W/ FOLIC ACID TABLET (FP) PO SCH (10:09)
[2021-06-17] MEDS: NICOTINE 7 MG/24 HOURS TOPICAL PATCH TD SCH (10:09)
[2021-06-17] MEDS: hydrOXYzine PAMOATE 25 MG CAPSULE (FP) PO PRN (21:18)
[2021-06-17] MEDS: THIAMINE HCL 100 MG TABLET (FP) PO SCH (21:18)
[2021-06-17] MEDS: MELATONIN 5 MG TABLETS PO SCH (21:18)
[2021-06-18] MEDS ORDERED: methaDONE HCL 40 MG DISPERSABLE TABLET ONE (05:46)
[2021-06-18] MEDS ORDERED: methaDONE HCL 10 MG TABLET ONE (05:46)
[2021-06-18] MEDS: NICOTINE 10 MG CARTRIDGE (INHALER) IH PRN (10:08)
[2021-06-18] MEDS: NICOTINE 7 MG/24 HOURS TOPICAL PATCH TD SCH (10:08)
[2021-06-18] MEDS: PRENATAL VITAMINS W/ FOLIC ACID TABLET (FP) PO SCH (10:08)
[2021-06-18] MEDS: MELATONIN 5 MG TABLETS PO SCH (21:11)
[2021-06-18] MEDS: THIAMINE HCL 100 MG TABLET (FP) PO SCH (21:12)
[2021-06-18] MEDS: hydrOXYzine PAMOATE 25 MG CAPSULE (FP) PO PRN (21:12)
[2021-06-19] MEDS ORDERED: methaDONE HCL 10 MG TABLET ONE (05:50)
[2021-06-19] MEDS ORDERED: methaDONE HCL 40 MG DISPERSABLE TABLET ONE (05:50)
[2021-06-19] MEDS: PRENATAL VITAMINS W/ FOLIC ACID TABLET (FP) PO SCH (10:10)
[2021-06-19] MEDS: NICOTINE 7 MG/24 HOURS TOPICAL PATCH TD SCH (10:10)
[2021-06-19] MEDS: MELATONIN 5 MG TABLETS PO SCH (22:04)
[2021-06-19] MEDS: THIAMINE HCL 100 MG TABLET (FP) PO SCH (22:04)
[2021-06-19] MEDS: hydrOXYzine PAMOATE 25 MG CAPSULE (FP) PO PRN (22:04)
[2021-06-20] MEDS ORDERED: methaDONE HCL 10 MG TABLET ONE (03:30)
[2021-06-20] MEDS ORDERED: methaDONE HCL 40 MG DISPERSABLE TABLET ONE (03:30)
[2021-06-20] MEDS: PRENATAL VITAMINS W/ FOLIC ACID TABLET (FP) PO SCH (10:03)
[2021-06-20] MEDS: NICOTINE 7 MG/24 HOURS TOPICAL PATCH TD SCH (10:03)
[2021-06-20] MEDS: THIAMINE HCL 100 MG TABLET (FP) PO SCH (21:17)
[2021-06-20] MEDS: NICOTINE 10 MG CARTRIDGE (INHALER) IH PRN (21:17)
[2021-06-20] MEDS: MELATONIN 5 MG TABLETS PO SCH (21:18)
[2021-06-20] MEDS: hydrOXYzine PAMOATE 25 MG CAPSULE (FP) PO PRN (21:18)
[2021-06-21] MEDS ORDERED: methaDONE HCL 10 MG TABLET ONE (04:16)
[2021-06-21] MEDS ORDERED: methaDONE HCL 40 MG DISPERSABLE TABLET ONE (04:17)
[2021-06-21] MEDS: NICOTINE 7 MG/24 HOURS TOPICAL PATCH TD SCH (09:45)
[2021-06-21] MEDS: PRENATAL VITAMINS W/ FOLIC ACID TABLET (FP) PO SCH (09:45)
[2021-06-21] MEDS: NICOTINE 10 MG CARTRIDGE (INHALER) IH PRN (09:45)
[2021-06-21] MEDS: THIAMINE HCL 100 MG TABLET (FP) PO SCH (21:16)
[2021-06-21] MEDS: hydrOXYzine PAMOATE 25 MG CAPSULE (FP) PO PRN (21:16)
[2021-06-21] MEDS: MELATONIN 5 MG TABLETS PO SCH (21:16)
[2021-06-22] MEDS ORDERED: methaDONE HCL 10 MG TABLET ONE (03:21)
[2021-06-22] MEDS ORDERED: methaDONE HCL 40 MG DISPERSABLE TABLET ONE (03:21)
[2021-06-22] MEDS: PRENATAL VITAMINS W/ FOLIC ACID TABLET (FP) PO SCH (09:49)
[2021-06-22] MEDS: NICOTINE 10 MG CARTRIDGE (INHALER) IH PRN (09:49)
[2021-06-22] MEDS: NICOTINE 7 MG/24 HOURS TOPICAL PATCH TD SCH (09:49)
[2021-06-22] MEDS: hydrOXYzine PAMOATE 25 MG CAPSULE (FP) PO PRN (21:14)
[2021-06-22] MEDS: THIAMINE HCL 100 MG TABLET (FP) PO SCH (21:14)
[2021-06-22] MEDS: MELATONIN 5 MG TABLETS PO SCH (21:14)
[2021-06-23] MEDS ORDERED: methaDONE HCL 40 MG DISPERSABLE TABLET ONE (03:22)
[2021-06-23] MEDS ORDERED: methaDONE HCL 10 MG TABLET ONE (03:22)
[2021-06-23] MEDS: COLLOIDAL OATMEAL 1 BAR EACH TP PRN (05:41)
[2021-06-23] MEDS: PRENATAL VITAMINS W/ FOLIC ACID TABLET (FP) PO SCH (10:07)
[2021-06-23] MEDS: NICOTINE 7 MG/24 HOURS TOPICAL PATCH TD SCH (10:07)
[2021-06-23] MEDS: NICOTINE 10 MG CARTRIDGE (INHALER) IH PRN (10:07)
[2021-06-23] MEDS: THIAMINE HCL 100 MG TABLET (FP) PO SCH (21:57)
[2021-06-23] MEDS: MELATONIN 5 MG TABLETS PO SCH (21:57)
[2021-06-23] MEDS: hydrOXYzine PAMOATE 25 MG CAPSULE (FP) PO PRN (21:57)
[2021-06-24] MEDS ORDERED: methaDONE HCL 10 MG TABLET ONE (03:55)
[2021-06-24] MEDS ORDERED: methaDONE HCL 40 MG DISPERSABLE TABLET ONE (03:55)
[2021-06-24] MEDS: NICOTINE 10 MG CARTRIDGE (INHALER) IH PRN ×2 (06:49→09:52)
[2021-06-24] MEDS: PRENATAL VITAMINS W/ FOLIC ACID TABLET (FP) PO SCH (09:51)
[2021-06-24] MEDS: NICOTINE 7 MG/24 HOURS TOPICAL PATCH TD SCH (09:52)
[2021-06-24] MEDS: hydrOXYzine PAMOATE 25 MG CAPSULE (FP) PO PRN (21:16)
[2021-06-24] MEDS: THIAMINE HCL 100 MG TABLET (FP) PO SCH (21:17)
[2021-06-24] MEDS: MELATONIN 5 MG TABLETS PO SCH (21:17)
[2021-06-25] MEDS ORDERED: methaDONE HCL 10 MG TABLET ONE (03:59)
[2021-06-25] MEDS ORDERED: methaDONE HCL 40 MG DISPERSABLE TABLET ONE (03:59)
[2021-06-25] MEDS: NICOTINE 7 MG/24 HOURS TOPICAL PATCH TD SCH (09:48)
[2021-06-25] MEDS: PRENATAL VITAMINS W/ FOLIC ACID TABLET (FP) PO SCH (09:48)
[2021-06-25] MEDS: NICOTINE 10 MG CARTRIDGE (INHALER) IH PRN (09:49)
[2021-06-25] MEDS: THIAMINE HCL 100 MG TABLET (FP) PO SCH (21:17)
[2021-06-25] MEDS: MELATONIN 5 MG TABLETS PO SCH (21:17)
[2021-06-25] MEDS: hydrOXYzine PAMOATE 25 MG CAPSULE (FP) PO PRN (21:17)
[2021-06-26] MEDS ORDERED: methaDONE HCL 10 MG TABLET ONE (04:11)
[2021-06-26] MEDS ORDERED: methaDONE HCL 40 MG DISPERSABLE TABLET ONE (04:12)
[2021-06-26] MEDS: PRENATAL VITAMINS W/ FOLIC ACID TABLET (FP) PO SCH (09:59)
[2021-06-26] MEDS: NICOTINE 7 MG/24 HOURS TOPICAL PATCH TD SCH (09:59)
[2021-06-26] MEDS: NICOTINE 10 MG CARTRIDGE (INHALER) IH PRN (12:47)
[2021-06-26] MEDS: MELATONIN 5 MG TABLETS PO SCH (21:14)
[2021-06-26] MEDS: hydrOXYzine PAMOATE 25 MG CAPSULE (FP) PO PRN (21:14)
[2021-06-26] MEDS: THIAMINE HCL 100 MG TABLET (FP) PO SCH (21:14)
[2021-06-27] MEDS ORDERED: methaDONE HCL 10 MG TABLET ONE (05:02)
[2021-06-27] MEDS ORDERED: methaDONE HCL 40 MG DISPERSABLE TABLET ONE (05:03)
[2021-06-27] MEDS: COLLOIDAL OATMEAL 1 BAR EACH TP PRN (05:55)
[2021-06-27] MEDS: NICOTINE 10 MG CARTRIDGE (INHALER) IH PRN (06:11)
[2021-06-27] MEDS: PRENATAL VITAMINS W/ FOLIC ACID TABLET (FP) PO SCH (10:02)
[2021-06-27] MEDS: NICOTINE 7 MG/24 HOURS TOPICAL PATCH TD SCH (10:02)
[2021-06-27] MEDS: THIAMINE HCL 100 MG TABLET (FP) PO SCH (21:05)
[2021-06-27] MEDS: MELATONIN 5 MG TABLETS PO SCH (21:05)
[2021-06-27] MEDS: hydrOXYzine PAMOATE 25 MG CAPSULE (FP) PO PRN (21:06)
[2021-06-28] MEDS ORDERED: methaDONE HCL 40 MG DISPERSABLE TABLET ONE (05:37)
[2021-06-28] MEDS ORDERED: methaDONE HCL 10 MG TABLET ONE (05:37)
[2021-06-28] MEDS: NICOTINE 10 MG CARTRIDGE (INHALER) IH PRN ×3 (06:02→21:53)
[2021-06-28] MEDS: PRENATAL VITAMINS W/ FOLIC ACID TABLET (FP) PO SCH (10:10)
[2021-06-28] MEDS: NICOTINE 7 MG/24 HOURS TOPICAL PATCH TD SCH (10:10)
[2021-06-28] MEDS: THIAMINE HCL 100 MG TABLET (FP) PO SCH (21:52)
[2021-06-28] MEDS: hydrOXYzine PAMOATE 25 MG CAPSULE (FP) PO PRN (21:52)
[2021-06-28] MEDS: MELATONIN 5 MG TABLETS PO SCH (21:53)
[2021-06-29] MEDS ORDERED: methaDONE HCL 10 MG TABLET ONE (04:59)
[2021-06-29] MEDS ORDERED: methaDONE HCL 40 MG DISPERSABLE TABLET ONE (04:59)
[2021-06-29] MEDS: NICOTINE 10 MG CARTRIDGE (INHALER) IH PRN ×2 (05:53→10:03)
[2021-06-29] MEDS: NICOTINE 7 MG/24 HOURS TOPICAL PATCH TD SCH (10:03)
[2021-06-29] MEDS: PRENATAL VITAMINS W/ FOLIC ACID TABLET (FP) PO SCH (10:03)
[2021-06-29] MEDS: MELATONIN 5 MG TABLETS PO SCH (22:08)
[2021-06-29] MEDS: THIAMINE HCL 100 MG TABLET (FP) PO SCH (22:08)
[2021-06-29] MEDS: hydrOXYzine PAMOATE 25 MG CAPSULE (FP) PO PRN (22:08)
[2021-06-30] MEDS ORDERED: methaDONE HCL 10 MG TABLET ONE (02:56)
[2021-06-30] MEDS ORDERED: methaDONE HCL 40 MG DISPERSABLE TABLET ONE (02:57)
[2021-06-30] MEDS: NICOTINE 10 MG CARTRIDGE (INHALER) IH PRN ×2 (05:51→10:14)
[2021-06-30] MEDS: PRENATAL VITAMINS W/ FOLIC ACID TABLET (FP) PO SCH (10:14)
[2021-06-30] MEDS: NICOTINE 7 MG/24 HOURS TOPICAL PATCH TD SCH (10:14)
[2021-06-30] MEDS: METHOCARBAMOL 500 MG TABLET PO PRN (12:26)
[2021-06-30] MEDS: hydrOXYzine PAMOATE 25 MG CAPSULE (FP) PO PRN (21:24)
[2021-06-30] MEDS: MELATONIN 5 MG TABLETS PO SCH (21:24)
[2021-06-30] MEDS: THIAMINE HCL 100 MG TABLET (FP) PO SCH (21:24)
[2021-06-30] MEDS: GABAPENTIN 300 MG CAPSULE PO SCH (21:25)
[2021-07-01] MEDS ORDERED: methaDONE HCL 10 MG TABLET ONE (02:59)
[2021-07-01] MEDS ORDERED: methaDONE HCL 40 MG DISPERSABLE TABLET ONE (02:59)
[2021-07-01] MEDS: NICOTINE 10 MG CARTRIDGE (INHALER) IH PRN ×2 (06:32→21:38)
[2021-07-01] MEDS: PRENATAL VITAMINS W/ FOLIC ACID TABLET (FP) PO SCH (09:50)
[2021-07-01] MEDS: NICOTINE 7 MG/24 HOURS TOPICAL PATCH TD SCH (09:50)
[2021-07-01] MEDS: GABAPENTIN 300 MG CAPSULE PO SCH ×2 (09:51→21:37)
[2021-07-01] MEDS: MELATONIN 5 MG TABLETS PO SCH (21:37)
[2021-07-01] MEDS: METHOCARBAMOL 500 MG TABLET PO PRN (21:37)
[2021-07-01] MEDS: THIAMINE HCL 100 MG TABLET (FP) PO SCH (21:37)
[2021-07-01] MEDS: hydrOXYzine PAMOATE 25 MG CAPSULE (FP) PO PRN (21:38)
[2021-07-02] MEDS ORDERED: methaDONE HCL 10 MG TABLET ONE (03:43)
[2021-07-02] MEDS ORDERED: methaDONE HCL 40 MG DISPERSABLE TABLET ONE (03:43)
[2021-07-02] MEDS: NICOTINE 10 MG CARTRIDGE (INHALER) IH PRN ×3 (06:30→21:21)
[2021-07-02] MEDS: METHOCARBAMOL 500 MG TABLET PO PRN ×2 (07:29→21:20)
[2021-07-02] MEDS: PRENATAL VITAMINS W/ FOLIC ACID TABLET (FP) PO SCH (09:52)
[2021-07-02] MEDS: NICOTINE 7 MG/24 HOURS TOPICAL PATCH TD SCH (09:52)
[2021-07-02] MEDS: GABAPENTIN 300 MG CAPSULE PO SCH ×2 (09:53→21:20)
[2021-07-02] MEDS: THIAMINE HCL 100 MG TABLET (FP) PO SCH (21:19)
[2021-07-02] MEDS: MELATONIN 5 MG TABLETS PO SCH (21:20)
[2021-07-03] MEDS ORDERED: methaDONE HCL 40 MG DISPERSABLE TABLET ONE (04:02)
[2021-07-03] MEDS ORDERED: methaDONE HCL 10 MG TABLET ONE (04:02)
[2021-07-03] MEDS: NICOTINE 10 MG CARTRIDGE (INHALER) IH PRN ×2 (05:55→10:15)
[2021-07-03] MEDS: METHOCARBAMOL 500 MG TABLET PO PRN ×2 (06:47→21:30)
[2021-07-03] MEDS: PRENATAL VITAMINS W/ FOLIC ACID TABLET (FP) PO SCH (10:14)
[2021-07-03] MEDS: GABAPENTIN 300 MG CAPSULE PO SCH ×2 (10:15→21:30)
[2021-07-03] MEDS: NICOTINE 7 MG/24 HOURS TOPICAL PATCH TD SCH (10:15)
[2021-07-03] MEDS: COLLOIDAL OATMEAL 1 BAR EACH TP PRN (10:16)
[2021-07-03] MEDS: MELATONIN 5 MG TABLETS PO SCH (21:30)
[2021-07-03] MEDS: THIAMINE HCL 100 MG TABLET (FP) PO SCH (21:30)
[2021-07-04] MEDS ORDERED: methaDONE HCL 10 MG TABLET ONE (03:58)
[2021-07-04] MEDS ORDERED: methaDONE HCL 40 MG DISPERSABLE TABLET ONE (03:59)
[2021-07-04] MEDS: NICOTINE 10 MG CARTRIDGE (INHALER) IH PRN ×2 (07:34→21:38)
[2021-07-04] MEDS: GABAPENTIN 300 MG CAPSULE PO SCH ×2 (09:57→21:36)
[2021-07-04] MEDS: PRENATAL VITAMINS W/ FOLIC ACID TABLET (FP) PO SCH (09:57)
[2021-07-04] MEDS: METHOCARBAMOL 500 MG TABLET PO PRN (09:58)
[2021-07-04] MEDS: NICOTINE 7 MG/24 HOURS TOPICAL PATCH TD SCH (10:02)
[2021-07-04] MEDS: THIAMINE HCL 100 MG TABLET (FP) PO SCH (21:36)
[2021-07-04] MEDS: MELATONIN 5 MG TABLETS PO SCH (21:36)
[2021-07-04] MEDS: hydrOXYzine PAMOATE 25 MG CAPSULE (FP) PO PRN (21:37)
[2021-07-05] MEDS ORDERED: methaDONE HCL 40 MG DISPERSABLE TABLET ONE (03:42)
[2021-07-05] MEDS ORDERED: methaDONE HCL 10 MG TABLET ONE (03:42)
[2021-07-05] MEDS: NICOTINE 10 MG CARTRIDGE (INHALER) IH PRN (06:48)
[2021-07-05] MEDS: GABAPENTIN 300 MG CAPSULE PO SCH ×2 (10:09→21:19)
[2021-07-05] MEDS: PRENATAL VITAMINS W/ FOLIC ACID TABLET (FP) PO SCH (10:09)
[2021-07-05] MEDS: METHOCARBAMOL 500 MG TABLET PO PRN ×2 (10:09→21:21)
[2021-07-05] MEDS: NICOTINE 7 MG/24 HOURS TOPICAL PATCH TD SCH (10:09)
[2021-07-05] MEDS: IBUPROFEN 400 MG TABLET (FP) PO PRN (10:10)
[2021-07-05] MEDS: THIAMINE HCL 100 MG TABLET (FP) PO SCH (21:19)
[2021-07-05] MEDS: MELATONIN 5 MG TABLETS PO SCH (21:19)
[2021-07-06] MEDS ORDERED: methaDONE HCL 10 MG TABLET ONE (03:17)
[2021-07-06] MEDS ORDERED: methaDONE HCL 40 MG DISPERSABLE TABLET ONE (03:17)
[2021-07-06] MEDS: NICOTINE 10 MG CARTRIDGE (INHALER) IH PRN (07:06)
[2021-07-06] MEDS: GABAPENTIN 300 MG CAPSULE PO SCH ×2 (09:53→21:47)
[2021-07-06] MEDS: PRENATAL VITAMINS W/ FOLIC ACID TABLET (FP) PO SCH (09:53)
[2021-07-06] MEDS: NICOTINE 7 MG/24 HOURS TOPICAL PATCH TD SCH (09:53)
[2021-07-06] MEDS: METHOCARBAMOL 500 MG TABLET PO PRN ×2 (09:53→21:47)
[2021-07-06] MEDS: MELATONIN 5 MG TABLETS PO SCH (21:46)
[2021-07-06] MEDS: THIAMINE HCL 100 MG TABLET (FP) PO SCH (21:47)
[2021-07-07] MEDS ORDERED: methaDONE HCL 10 MG TABLET ONE (05:33)
[2021-07-07] MEDS ORDERED: methaDONE HCL 40 MG DISPERSABLE TABLET ONE (05:33)
[2021-07-07] MEDS: NICOTINE 10 MG CARTRIDGE (INHALER) IH PRN ×2 (07:40→11:34)
[2021-07-07] MEDS: GABAPENTIN 300 MG CAPSULE PO SCH ×2 (10:05→22:02)
[2021-07-07] MEDS: NICOTINE 7 MG/24 HOURS TOPICAL PATCH TD SCH (10:05)
[2021-07-07] MEDS: PRENATAL VITAMINS W/ FOLIC ACID TABLET (FP) PO SCH (10:05)
[2021-07-07] MEDS: METHOCARBAMOL 500 MG TABLET PO PRN ×2 (10:06→22:02)
[2021-07-07] MEDS: THIAMINE HCL 100 MG TABLET (FP) PO SCH (22:02)
[2021-07-07] MEDS: MELATONIN 5 MG TABLETS PO SCH (22:04)
[2021-07-08] MEDS ORDERED: methaDONE HCL 10 MG TABLET ONE (04:54)
[2021-07-08] MEDS ORDERED: methaDONE HCL 40 MG DISPERSABLE TABLET ONE (04:54)
[2021-07-08] MEDS: GABAPENTIN 300 MG CAPSULE PO SCH ×2 (10:23→21:35)
[2021-07-08] MEDS: NICOTINE 7 MG/24 HOURS TOPICAL PATCH TD SCH (10:24)
[2021-07-08] MEDS: PRENATAL VITAMINS W/ FOLIC ACID TABLET (FP) PO SCH (10:24)
[2021-07-08] MEDS: NICOTINE 10 MG CARTRIDGE (INHALER) IH PRN ×2 (10:24→21:36)
[2021-07-08] MEDS: METHOCARBAMOL 500 MG TABLET PO PRN (10:25)
[2021-07-08] MEDS: IBUPROFEN 400 MG TABLET (FP) PO PRN (14:04)
[2021-07-08] MEDS: THIAMINE HCL 100 MG TABLET (FP) PO SCH (21:35)
[2021-07-08] MEDS: MELATONIN 5 MG TABLETS PO SCH (21:35)
[2021-07-09] MEDS ORDERED: methaDONE HCL 10 MG TABLET ONE (04:07)
[2021-07-09] MEDS ORDERED: methaDONE HCL 40 MG DISPERSABLE TABLET ONE (04:07)
[2021-07-09] MEDS: NICOTINE 10 MG CARTRIDGE (INHALER) IH PRN (05:48)
[2021-07-09] MEDS: NICOTINE 7 MG/24 HOURS TOPICAL PATCH TD SCH (09:59)
[2021-07-09] MEDS: PRENATAL VITAMINS W/ FOLIC ACID TABLET (FP) PO SCH (09:59)
[2021-07-09] MEDS: GABAPENTIN 300 MG CAPSULE PO SCH ×2 (10:00→21:21)
[2021-07-09] MEDS: METHOCARBAMOL 500 MG TABLET PO PRN (10:00)
[2021-07-09] MEDS: IBUPROFEN 400 MG TABLET (FP) PO PRN ×2 (11:15→21:24)
[2021-07-09] MEDS: MELATONIN 5 MG TABLETS PO SCH (21:21)
[2021-07-09] MEDS: THIAMINE HCL 100 MG TABLET (FP) PO SCH (21:22)
[2021-07-10] MEDS ORDERED: methaDONE HCL 40 MG DISPERSABLE TABLET ONE (03:09)
[2021-07-10] MEDS ORDERED: methaDONE HCL 10 MG TABLET ONE (03:09)
[2021-07-10] MEDS: NICOTINE 10 MG CARTRIDGE (INHALER) IH PRN (06:26)
[2021-07-10 07:08] VITALS: BP 122/65; PULSE 64; TEMP 96.9
[2021-07-10] MEDS: COLLOIDAL OATMEAL 1 BAR EACH TP PRN (07:09)
[2021-07-10] MEDS: GABAPENTIN 300 MG CAPSULE PO SCH (09:00)
[2021-07-10] MEDS: NICOTINE 7 MG/24 HOURS TOPICAL PATCH TD SCH (09:00)
[2021-07-10] MEDS: PRENATAL VITAMINS W/ FOLIC ACID TABLET (FP) PO SCH (09:00)
[2021-07-10] MEDS: METHOCARBAMOL 500 MG TABLET PO PRN (09:01)
== END 2021-07-10 09:23 | disposition home or self-care (01) | DRG 772 ==
LOC: YASAS 13:10 → Y5N 13:16
PROVIDERS: ADMIT Allergy & Immunology; ATTEND Allergy & Immunology
PROC: HZ42ZZZ Group Counseling for Substance Abuse Treatment, Cognitive-Behavioral (ICD-10-PCS; principal; 2021-06-11)
DX: F11.20 Opioid dependence, uncomplicated (principal); F13.20 Sedative, hypnotic or anxiolytic dependence, uncomplicated; F17.210 Nicotine dependence, cigarettes, uncomplicated; G62.9 Polyneuropathy, unspecified; J45.909 Unspecified asthma, uncomplicated; B18.2 Chronic viral hepatitis C; Z88.7 Allergy status to serum and vaccine; Z91.013 Allergy to seafood
CPT/HCPCS: 36415; 87389; C9803-CS; U0003; U0005

== ENCOUNTER 2021-09-21 16:27 | Emergency (ER) | payer OTHER ==
[2021-09-21 16:41] VITALS: TEMP 97.7; BMI 26.9
[2021-09-21 18:03] VITALS: RESP 18
[2021-09-21] MEDS ORDERED: CEPHALEXIN MONOHYDRATE 500 MG CAPSULE (UD) PO ONE (18:10)
[2021-09-21] MEDS ORDERED: CEPHALEXIN MONOHYDRATE 500 MG CAPSULE (UD) ONE (18:24)
[2021-09-21 19:33] VITALS: BP 132/101; PULSE 70
[2021-09-21] MEDS ORDERED: SULFAMETHOXAZOLE/TRIMETHOPRIM 800MG/160MG D.S. TABLET PO ONE (19:52)
[2021-09-21] MEDS ORDERED: SULFAMETHOXAZOLE/TRIMETHOPRIM 800MG/160MG D.S. TABLET ONE (19:57)
== END 2021-09-21 20:43 | disposition home or self-care (01) ==
LOC: JER 16:27
DX: F13.20 Sedative, hypnotic or anxiolytic dependence, uncomplicated (principal)
CPT/HCPCS: 99283-25; C9803-CS; U0003; U0005

== ENCOUNTER 2021-09-22 00:09 | Inpatient (IN) | payer OTHER ==
[2021-09-22] MEDS ORDERED: NALOXONE HCL 0.4 MG/ML VIAL ONE ×3 (00:32→04:04)
[2021-09-22 00:33] VITALS: BMI 23.1
[2021-09-22] MEDS ORDERED: NALOXONE HCL 0.4 MG/ML VIAL IVPUSH ONE ×3 (00:53→02:17)
[2021-09-22 01:11] LABS: BASO % 0.3 % (0-2.0); EOS % 3.7 % (0-4.5); HEMOGLOBIN 13.1 GM/dL (11.7-16.9); LYMPH % 29.4 % (8-40); MCH 30.6 pg (25.7-33.7); MCHC 34.6 g/dl (32.0-35.9); MEAN CELL VOLUME 88.4 fl (80-96); MEAN PLT VOLUME 8.6 fl (7.5-11.1); MONO % 10.7 % (3.8-10.2); NEUT % 55.9 % (42.8-82.8); PLATELET COUNT 168 10^3/uL (134-434); WHITE BLOOD COUNT 7.2 K/mm3 (4.0-10.0)
[2021-09-22 01:34] LABS: CHLORIDE 103 mmol/L (98-107); SODIUM 140 mmol/L (136-145)
[2021-09-22 01:38] LABS: ALBUMIN 3.7 g/dl (3.4-5.0); ANION GAP 5 MMOL/L (8-16); BLOOD UREA NITROGEN 14.5 mg/dL (7-18); CALCIUM 8.9 mg/dL (8.5-10.1); CO2 33 mmol/L (21-32); GLUCOSE,RANDOM 114 mg/dL (74-106)
[2021-09-22 01:39] LABS: VENOUS BASE EXCESS -1.9 mmol/L (-2-2); VENOUS O2 SATURATION 61.1 % (70-80); VENOUS PCO2 68.5 mmHg (38-52); VENOUS PH 7.22 (7.310-7.410)
[2021-09-22 01:41] LABS: CREATININE 0.9 mg/dL (0.55-1.3); SGOT/AST 58 U/L (15-37); SGPT/ALT 102 U/L (13-61)
[2021-09-22 01:43] LABS: BILIRUBIN,TOTAL 1.1 mg/dL (0.2-1)
[2021-09-22 01:44] LABS: ALK PHOS 118 U/L (45-117)
[2021-09-22] MEDS ORDERED: NALOXONE HCL 2 MG in DEXTROSE 5%-WATER - 495 ML IV SCH (04:00)
[2021-09-22 04:07] LABS: VENOUS BASE EXCESS 2.4 mmol/L (-2-2); VENOUS O2 SATURATION 93.9 % (70-80); VENOUS PCO2 42.9 mmHg (38-52); VENOUS PH 7.42 (7.310-7.410)
[2021-09-22] MEDS ORDERED: SODIUM CHLORIDE 0.9% 500 ML INFUS.BAG IV ONE (05:45)
[2021-09-22] MEDS: ENOXAPARIN NA (PORCINE) 40 MG/0.4 ML DISP.SYRIN SQ SCH (12:02)
[2021-09-22] MEDS: CEPHALEXIN MONOHYDRATE 500 MG CAPSULE (UD) PO SCH ×2 (13:35→18:47)
[2021-09-22] MEDS: NYSTATIN 100,000 UNIT/GM TOPICAL CREAM 15 GM TUBE TP SCH (22:07)
[2021-09-23] MEDS: CEPHALEXIN MONOHYDRATE 500 MG CAPSULE (UD) PO SCH ×2 (00:06→05:58)
[2021-09-23 07:11] LABS: BASO % 0.6 % (0-2.0); HEMATOCRIT 36.6 % (35.4-49); HEMOGLOBIN 12.6 GM/dL (11.7-16.9); LYMPH % 37.5 % (8-40); MCH 30.4 pg (25.7-33.7); MCHC 34.5 g/dl (32.0-35.9); MEAN CELL VOLUME 88.1 fl (80-96); MONO % 7.7 % (3.8-10.2); NEUT % 51.2 % (42.8-82.8); PLATELET COUNT 165 10^3/uL (134-434); RBC 4.15 M/mm3 (4.00-5.60); RDW 15.1 % (11.9-15.9)
[2021-09-23 07:31] LABS: CALCIUM 8.6 mg/dL (8.5-10.1)
[2021-09-23 07:32] LABS: ALBUMIN 3.3 g/dl (3.4-5.0)
[2021-09-23 07:34] LABS: PHOSPHOROUS 2.5 mg/dL (2.5-4.9)
[2021-09-23 07:35] LABS: CREATININE 0.8 mg/dL (0.55-1.3); MAGNESIUM 2.1 mg/dL (1.8-2.4)
[2021-09-23 07:36] LABS: BILIRUBIN,TOTAL 0.7 mg/dL (0.2-1)
[2021-09-23] MEDS: NYSTATIN 100,000 UNIT/GM TOPICAL CREAM 15 GM TUBE TP SCH ×2 (09:47→21:03)
[2021-09-23] MEDS: ENOXAPARIN NA (PORCINE) 40 MG/0.4 ML DISP.SYRIN SQ SCH (09:47)
[2021-09-23] MEDS ORDERED: methaDONE HCL 40 MG DISPERSABLE TABLET PO SCH (13:45)
[2021-09-23] MEDS ORDERED: LORazepam 2 MG/ML SDV VIAL IVPUSH PRN (14:07)
[2021-09-23] MEDS: AMPICILLIN NA/SULBACTAM NA 1.5 GM in SODIUM CHLORIDE 100 ML IVPB SCH ×2 (14:54→17:24)
[2021-09-24] MEDS: AMPICILLIN NA/SULBACTAM NA 1.5 GM in SODIUM CHLORIDE 100 ML IVPB SCH (02:02)
[2021-09-24 08:11] LABS: BASO % 0.3 % (0-2.0); EOS % 3.2 % (0-4.5); HEMATOCRIT 36.1 % (35.4-49); HEMOGLOBIN 12.7 GM/dL (11.7-16.9); LYMPH % 42.8 % (8-40); MCH 31.2 pg (25.7-33.7); MCHC 35.2 g/dl (32.0-35.9); MEAN CELL VOLUME 88.4 fl (80-96); MEAN PLT VOLUME 8.8 fl (7.5-11.1); MONO % 9.5 % (3.8-10.2); NEUT % 44.2 % (42.8-82.8); PLATELET COUNT 173 10^3/uL (134-434); RBC 4.09 M/mm3 (4.00-5.60); RDW 15.2 % (11.9-15.9); WHITE BLOOD COUNT 5.1 K/mm3 (4.0-10.0)
[2021-09-24 08:35] LABS: CALCIUM 9.1 mg/dL (8.5-10.1)
[2021-09-24 08:36] LABS: BLOOD UREA NITROGEN 11.6 mg/dL (7-18)
[2021-09-24 08:39] LABS: CREATININE 0.8 mg/dL (0.55-1.3); PHOSPHOROUS 3.3 mg/dL (2.5-4.9)
[2021-09-24] MEDS ORDERED: CEPHALEXIN MONOHYDRATE 500 MG CAPSULE (UD) PO SCH (10:00)
[2021-09-24] MEDS: ENOXAPARIN NA (PORCINE) 40 MG/0.4 ML DISP.SYRIN SQ SCH (10:54)
[2021-09-24] MEDS: CEPHALEXIN MONOHYDRATE 500 MG CAPSULE (UD) PO SCH ×3 (10:54→18:57)
[2021-09-24] MEDS: NYSTATIN 100,000 UNIT/GM TOPICAL CREAM 15 GM TUBE TP SCH ×2 (10:54→22:40)
[2021-09-25] MEDS: CEPHALEXIN MONOHYDRATE 500 MG CAPSULE (UD) PO SCH ×4 (01:02→18:22)
[2021-09-25 06:43] LABS: BASO % 0.3 % (0-2.0); EOS % 3.9 % (0-4.5); HEMOGLOBIN 13.3 GM/dL (11.7-16.9); LYMPH % 42.4 % (8-40); MCH 30.4 pg (25.7-33.7); MCHC 34.2 g/dl (32.0-35.9); MONO % 8.3 % (3.8-10.2); NEUT % 45.1 % (42.8-82.8); PLATELET COUNT 187 10^3/uL (134-434); RBC 4.38 M/mm3 (4.00-5.60); RDW 15.5 % (11.9-15.9); WHITE BLOOD COUNT 6.3 K/mm3 (4.0-10.0)
[2021-09-25 07:04] LABS: ALBUMIN 3.5 g/dl (3.4-5.0); CALCIUM 8.8 mg/dL (8.5-10.1)
[2021-09-25 07:05] LABS: BLOOD UREA NITROGEN 12.9 mg/dL (7-18)
[2021-09-25 07:07] LABS: CREATININE 0.7 mg/dL (0.55-1.3); MAGNESIUM 1.9 mg/dL (1.8-2.4); PHOSPHOROUS 3.5 mg/dL (2.5-4.9)
[2021-09-25 07:09] LABS: BILIRUBIN,TOTAL 0.5 mg/dL (0.2-1); TOT PROT 7.1 g/dl (6.4-8.2)
[2021-09-25] MEDS: ENOXAPARIN NA (PORCINE) 40 MG/0.4 ML DISP.SYRIN SQ SCH (10:31)
[2021-09-25] MEDS: NYSTATIN 100,000 UNIT/GM TOPICAL CREAM 15 GM TUBE TP SCH ×2 (10:38→22:23)
[2021-09-26] MEDS: CEPHALEXIN MONOHYDRATE 500 MG CAPSULE (UD) PO SCH ×2 (00:44→05:54)
[2021-09-26 07:10] VITALS: BP 119/67; PULSE 58; RESP 18; TEMP 97.6
[2021-09-26] MEDS: NYSTATIN 100,000 UNIT/GM TOPICAL CREAM 15 GM TUBE TP SCH (10:01)
[2021-09-26] MEDS: ENOXAPARIN NA (PORCINE) 40 MG/0.4 ML DISP.SYRIN SQ SCH (10:01)
[2021-09-26] MEDS ORDERED: CEPHALEXIN MONOHYDRATE 500 MG CAPSULE (UD) PO SCH (23:59)
== END 2021-09-26 15:47 | disposition other institution (70) | DRG 812 ==
LOC: JER 00:09 → JERBED 03:07 → JICU 09:21 → J4S 21:48
PROVIDERS: ADMIT Internal Medicine Pulmonary Disease; ATTEND Internal Medicine
DX: T42.4X4A Poisoning by benzodiazepines, undetermined, initial encounter (principal); U07.1 COVID-19; E87.2 Acidosis; L03.115 Cellulitis of right lower limb; L03.116 Cellulitis of left lower limb; F11.20 Opioid dependence, uncomplicated; Y92.89 Other specified places as the place of occurrence of the external cause; R09.02 Hypoxemia
CPT/HCPCS: 0241U-QW; 36415; 71045-TC-FY; 74177-TC; 80048; 80053; 80307; 82803; 82962; 83735; 84100; 85025; 86140; 86900; 93005; 93010; 99291; C9803-CS; Q9967; U0003; U0005

== ENCOUNTER 2021-09-26 16:12 | Inpatient (IN) | payer OTHER ==
[2021-09-26 17:08] VITALS: BMI 30.4
[2021-09-26] MEDS ORDERED: P-EPHED 60MG/TRIPROLIDI 2.5MG TABLET PO PRN (18:20)
[2021-09-26] MEDS ORDERED: guaiFENesin 200 MG/10 ML 10 ML UNIT-DOSE CUPS PO PRN (18:20)
[2021-09-26] MEDS ORDERED: ACETAMINOPHEN 325 MG TABLET (FP) PO PRN (18:20)
[2021-09-26] MEDS ORDERED: MAG HYDROX/AL HYDROX/SIMETH 30 ML UNIT-DOSE CUP PO PRN (18:20)
[2021-09-26] MEDS ORDERED: LOPERAMIDE HCL 2 MG CAPSULE PO PRN (18:20)
[2021-09-26] MEDS ORDERED: MAGNESIUM HYDROX 2400MG/30ML ORAL SUSPENSION 30 ML CUP PO PRN (18:20)
[2021-09-26] MEDS ORDERED: IBUPROFEN 400 MG TABLET (FP) PO PRN (18:20)
[2021-09-26] MEDS ORDERED: BENZOCAINE/MENTHOL (CHLORASEPTIC ) LOZENGE MM PRN (18:20)
[2021-09-26] MEDS ORDERED: MAGNESIUM CITRATE 300 ML BOTTLE PO PRN (18:20)
[2021-09-26] MEDS: COLLOIDAL OATMEAL 1 BAR EACH TP PRN (19:32)
[2021-09-26] MEDS: MELATONIN 5 MG TABLETS PO SCH (21:59)
[2021-09-26] MEDS: THIAMINE HCL 100 MG TABLET (FP) PO SCH (21:59)
[2021-09-26] MEDS: CEPHALEXIN MONOHYDRATE 500 MG CAPSULE (UD) PO SCH (23:45)
[2021-09-27] MEDS ORDERED: CEPHALEXIN MONOHYDRATE 500 MG CAPSULE (UD) PO SCH
[2021-09-27] MEDS: CEPHALEXIN MONOHYDRATE 500 MG CAPSULE (UD) PO SCH ×3 (07:05→17:34)
[2021-09-27] MEDS ORDERED: ALBUTEROL SO4 HFA INHALER IH PRN (08:41)
[2021-09-27] MEDS ORDERED: methaDONE HCL 40 MG DISPERSABLE TABLET PO SCH (08:45)
[2021-09-27] MEDS: PRENATAL VITAMINS W/ FOLIC ACID TABLET (FP) PO SCH (09:41)
[2021-09-27] MEDS: MELATONIN 5 MG TABLETS PO SCH (22:16)
[2021-09-27] MEDS: THIAMINE HCL 100 MG TABLET (FP) PO SCH (22:16)
[2021-09-28] MEDS: CEPHALEXIN MONOHYDRATE 500 MG CAPSULE (UD) PO SCH ×5 (01:01→23:48)
[2021-09-28] MEDS: PRENATAL VITAMINS W/ FOLIC ACID TABLET (FP) PO SCH (09:41)
[2021-09-28 11:28] LABS: HIV INTERPRETATION NEGATIVE (NEGATIVE)
[2021-09-28] MEDS ORDERED: NICOTINE 10 MG CARTRIDGE (INHALER) IH PRN (13:24)
[2021-09-28] MEDS: MELATONIN 5 MG TABLETS PO SCH (22:14)
[2021-09-28] MEDS: THIAMINE HCL 100 MG TABLET (FP) PO SCH (22:14)
[2021-09-29] MEDS: CEPHALEXIN MONOHYDRATE 500 MG CAPSULE (UD) PO SCH ×3 (06:37→18:08)
[2021-09-29] MEDS: PRENATAL VITAMINS W/ FOLIC ACID TABLET (FP) PO SCH (09:57)
[2021-09-29] MEDS: MELATONIN 5 MG TABLETS PO SCH (21:56)
[2021-09-29] MEDS: THIAMINE HCL 100 MG TABLET (FP) PO SCH (21:56)
[2021-09-30] MEDS: CEPHALEXIN MONOHYDRATE 500 MG CAPSULE (UD) PO SCH ×4 (01:32→17:14)
[2021-09-30] MEDS: PRENATAL VITAMINS W/ FOLIC ACID TABLET (FP) PO SCH (11:17)
[2021-09-30] MEDS: MELATONIN 5 MG TABLETS PO SCH (21:57)
[2021-09-30] MEDS: THIAMINE HCL 100 MG TABLET (FP) PO SCH (21:57)
[2021-10-01] MEDS: PRENATAL VITAMINS W/ FOLIC ACID TABLET (FP) PO SCH (10:02)
[2021-10-01] MEDS: MELATONIN 5 MG TABLETS PO SCH (22:08)
[2021-10-01] MEDS: THIAMINE HCL 100 MG TABLET (FP) PO SCH (22:08)
[2021-10-02] MEDS: PRENATAL VITAMINS W/ FOLIC ACID TABLET (FP) PO SCH (11:00)
[2021-10-02] MEDS: COLLOIDAL OATMEAL 1 BAR EACH TP PRN (14:37)
[2021-10-02] MEDS: THIAMINE HCL 100 MG TABLET (FP) PO SCH (22:05)
[2021-10-02] MEDS: MELATONIN 5 MG TABLETS PO SCH (22:05)
[2021-10-03] MEDS: PRENATAL VITAMINS W/ FOLIC ACID TABLET (FP) PO SCH (10:05)
[2021-10-03] MEDS: THIAMINE HCL 100 MG TABLET (FP) PO SCH (22:28)
[2021-10-03] MEDS: MELATONIN 5 MG TABLETS PO SCH (22:28)
[2021-10-04] MEDS: PRENATAL VITAMINS W/ FOLIC ACID TABLET (FP) PO SCH (10:52)
[2021-10-04] MEDS: MELATONIN 5 MG TABLETS PO SCH (21:38)
[2021-10-04] MEDS: THIAMINE HCL 100 MG TABLET (FP) PO SCH (21:38)
[2021-10-05] MEDS: PRENATAL VITAMINS W/ FOLIC ACID TABLET (FP) PO SCH (09:55)
[2021-10-05] MEDS: THIAMINE HCL 100 MG TABLET (FP) PO SCH (21:43)
[2021-10-05] MEDS: MELATONIN 5 MG TABLETS PO SCH (21:43)
[2021-10-06] MEDS: PRENATAL VITAMINS W/ FOLIC ACID TABLET (FP) PO SCH (11:33)
[2021-10-06] MEDS: MELATONIN 5 MG TABLETS PO SCH (21:57)
[2021-10-06] MEDS: THIAMINE HCL 100 MG TABLET (FP) PO SCH (21:57)
[2021-10-07] MEDS: PRENATAL VITAMINS W/ FOLIC ACID TABLET (FP) PO SCH (10:02)
[2021-10-07] MEDS: COLLOIDAL OATMEAL 1 BAR EACH TP PRN (15:44)
[2021-10-07] MEDS: MELATONIN 5 MG TABLETS PO SCH (23:33)
[2021-10-07] MEDS: THIAMINE HCL 100 MG TABLET (FP) PO SCH (23:33)
[2021-10-08] MEDS: PRENATAL VITAMINS W/ FOLIC ACID TABLET (FP) PO SCH (10:37)
[2021-10-08] MEDS: MELATONIN 5 MG TABLETS PO SCH (22:00)
[2021-10-08] MEDS: THIAMINE HCL 100 MG TABLET (FP) PO SCH (22:00)
[2021-10-09] MEDS: PRENATAL VITAMINS W/ FOLIC ACID TABLET (FP) PO SCH (09:52)
[2021-10-09] MEDS: MELATONIN 5 MG TABLETS PO SCH (21:48)
[2021-10-09] MEDS: THIAMINE HCL 100 MG TABLET (FP) PO SCH (21:48)
[2021-10-10] MEDS: PRENATAL VITAMINS W/ FOLIC ACID TABLET (FP) PO SCH (09:37)
[2021-10-10] MEDS: MELATONIN 5 MG TABLETS PO SCH (21:34)
[2021-10-10] MEDS: THIAMINE HCL 100 MG TABLET (FP) PO SCH (21:35)
[2021-10-11] MEDS: PRENATAL VITAMINS W/ FOLIC ACID TABLET (FP) PO SCH (10:08)
[2021-10-11] MEDS: MELATONIN 5 MG TABLETS PO SCH (22:00)
[2021-10-11] MEDS: THIAMINE HCL 100 MG TABLET (FP) PO SCH (22:00)
[2021-10-12] MEDS: PRENATAL VITAMINS W/ FOLIC ACID TABLET (FP) PO SCH (10:20)
[2021-10-12] MEDS: THIAMINE HCL 100 MG TABLET (FP) PO SCH (23:54)
[2021-10-12] MEDS: MELATONIN 5 MG TABLETS PO SCH (23:54)
[2021-10-13] MEDS: PRENATAL VITAMINS W/ FOLIC ACID TABLET (FP) PO SCH (09:53)
[2021-10-13] MEDS: THIAMINE HCL 100 MG TABLET (FP) PO SCH (23:18)
[2021-10-13] MEDS: MELATONIN 5 MG TABLETS PO SCH (23:18)
[2021-10-14] MEDS: PRENATAL VITAMINS W/ FOLIC ACID TABLET (FP) PO SCH (09:40)
[2021-10-14] MEDS: MELATONIN 5 MG TABLETS PO SCH (21:26)
[2021-10-14] MEDS: THIAMINE HCL 100 MG TABLET (FP) PO SCH (21:26)
[2021-10-15] MEDS: PRENATAL VITAMINS W/ FOLIC ACID TABLET (FP) PO SCH (09:31)
[2021-10-15] MEDS: COLLOIDAL OATMEAL 1 BAR EACH TP PRN (14:46)
[2021-10-15] MEDS: THIAMINE HCL 100 MG TABLET (FP) PO SCH (21:23)
[2021-10-15] MEDS: MELATONIN 5 MG TABLETS PO SCH (21:23)
[2021-10-16] MEDS: PRENATAL VITAMINS W/ FOLIC ACID TABLET (FP) PO SCH (09:49)
[2021-10-16] MEDS: THIAMINE HCL 100 MG TABLET (FP) PO SCH (21:56)
[2021-10-16] MEDS: MELATONIN 5 MG TABLETS PO SCH (21:56)
[2021-10-17] MEDS: PRENATAL VITAMINS W/ FOLIC ACID TABLET (FP) PO SCH (09:47)
[2021-10-17] MEDS: THIAMINE HCL 100 MG TABLET (FP) PO SCH (21:37)
[2021-10-17] MEDS: MELATONIN 5 MG TABLETS PO SCH (21:37)
[2021-10-18 07:01] VITALS: RESP 18
[2021-10-18] MEDS: PRENATAL VITAMINS W/ FOLIC ACID TABLET (FP) PO SCH (09:22)
[2021-10-18] MEDS: MELATONIN 5 MG TABLETS PO SCH (21:35)
[2021-10-18] MEDS: THIAMINE HCL 100 MG TABLET (FP) PO SCH (21:35)
[2021-10-19] MEDS: PRENATAL VITAMINS W/ FOLIC ACID TABLET (FP) PO SCH (09:21)
[2021-10-19] MEDS: THIAMINE HCL 100 MG TABLET (FP) PO SCH (21:24)
[2021-10-19] MEDS: MELATONIN 5 MG TABLETS PO SCH (21:24)
[2021-10-20] MEDS: PRENATAL VITAMINS W/ FOLIC ACID TABLET (FP) PO SCH (09:51)
[2021-10-20] MEDS: MELATONIN 5 MG TABLETS PO SCH (21:25)
[2021-10-20] MEDS: THIAMINE HCL 100 MG TABLET (FP) PO SCH (21:25)
[2021-10-21] MEDS: PRENATAL VITAMINS W/ FOLIC ACID TABLET (FP) PO SCH (10:23)
[2021-10-21] MEDS: COLLOIDAL OATMEAL 1 BAR EACH TP PRN (11:34)
[2021-10-21] MEDS: MELATONIN 5 MG TABLETS PO SCH (21:49)
[2021-10-21] MEDS: THIAMINE HCL 100 MG TABLET (FP) PO SCH (21:50)
[2021-10-22] MEDS: PRENATAL VITAMINS W/ FOLIC ACID TABLET (FP) PO SCH (10:10)
[2021-10-22] MEDS: MELATONIN 5 MG TABLETS PO SCH (22:18)
[2021-10-22] MEDS: THIAMINE HCL 100 MG TABLET (FP) PO SCH (22:18)
[2021-10-23] MEDS: PRENATAL VITAMINS W/ FOLIC ACID TABLET (FP) PO SCH (10:19)
[2021-10-23] MEDS: THIAMINE HCL 100 MG TABLET (FP) PO SCH (22:10)
[2021-10-23] MEDS: MELATONIN 5 MG TABLETS PO SCH (22:10)
[2021-10-24 07:06] VITALS: BP 139/83; PULSE 72; TEMP 97.3
== END 2021-10-24 09:15 | disposition home or self-care (01) | DRG 773 ==
LOC: YASAS 16:12 → Y3W 18:46
PROVIDERS: ADMIT Allergy & Immunology; ATTEND Psychiatry & Neurology Pain Medicine
PROC: HZ2ZZZZ Detoxification Services for Substance Abuse Treatment (ICD-10-PCS; principal; 2021-09-26)
DX: F13.20 Sedative, hypnotic or anxiolytic dependence, uncomplicated (principal); F11.20 Opioid dependence, uncomplicated; F17.210 Nicotine dependence, cigarettes, uncomplicated; F19.282 Other psychoactive substance dependence with psychoactive substance-induced sleep disorder; J45.909 Unspecified asthma, uncomplicated; G62.9 Polyneuropathy, unspecified; M19.042 Primary osteoarthritis, left hand; M19.041 Primary osteoarthritis, right hand; L03.116 Cellulitis of left lower limb; L03.115 Cellulitis of right lower limb; E66.9 Obesity, unspecified; Z68.30 Body mass index [BMI] 30.0-30.9, adult; Z86.59 Personal history of other mental and behavioral disorders; Z91.013 Allergy to seafood; Z91.018 Allergy to other foods
CPT/HCPCS: 36415; 87389; C9803-CS; U0003; U0005

== ENCOUNTER 2022-08-20 11:07 | Inpatient (IN) | payer OTHER ==
[2022-08-20 11:47] VITALS: BMI 29.8
[2022-08-20] MEDS ORDERED: IBUPROFEN 400 MG TABLET (FP) PO PRN (12:12)
[2022-08-20] MEDS ORDERED: BISMUTH SUBSALICYLATE 524 MG/30 ML PO PRN (12:12)
[2022-08-20] MEDS ORDERED: BENZOCAINE/MENTHOL (CHLORASEPTIC ) LOZENGE MM PRN (12:12)
[2022-08-20] MEDS ORDERED: POLYETHYLENE GLYCOL (HEALTHYLAX) 3350 17 GM PACKET PO PRN (12:12)
[2022-08-20] MEDS ORDERED: BENZONATATE 200 MG CAPSULE PO PRN (12:12)
[2022-08-20] MEDS ORDERED: ACETAMINOPHEN 325 MG TABLET (FP) PO PRN (12:12)
[2022-08-20] MEDS ORDERED: NALOXONE HCL (KLOXXADO) 8 MG SPRAY NS PRN (12:12)
[2022-08-20] MEDS ORDERED: P-EPHED 60MG/TRIPROLIDI 2.5MG TABLET PO PRN (12:12)
[2022-08-20] MEDS ORDERED: NALOXONE HCL 0.4 MG/ML VIAL IM PRN (12:12)
[2022-08-20] MEDS ORDERED: NICOTINE 10 MG CARTRIDGE (INHALER) IH PRN (12:12)
[2022-08-20] MEDS ORDERED: DICYCLOMINE HCL 10 MG CAPSULE PO PRN (12:12)
[2022-08-20] MEDS ORDERED: LOPERAMIDE HCL 2 MG CAPSULE PO PRN (12:12)
[2022-08-20] MEDS ORDERED: ONDANSETRON *ODT* 4 MG TABLET SL PRN (12:12)
[2022-08-20] MEDS ORDERED: guaiFENesin 600 MG TABLET.ER (FP) PO PRN (12:12)
[2022-08-20] MEDS ORDERED: MAGNESIUM HYDROX 2400MG/30ML ORAL SUSPENSION 30 ML CUP PO PRN (12:12)
[2022-08-20] MEDS ORDERED: MAG HYDROX/AL HYDROX/SIMETH 30 ML UNIT-DOSE CUP PO PRN (12:12)
[2022-08-20] MEDS ORDERED: ALBUTEROL SO4 HFA INHALER IH PRN (13:17)
[2022-08-20] MEDS: levETIRAcetam 500 MG TABLET (FP) PO SCH ×2 (13:48→22:25)
[2022-08-20] MEDS: NICOTINE POLACRILEX 2 MG GUM BUC PRN (13:51)
[2022-08-20] MEDS: diazePAM 5 MG TABLET PO SCH ×2 (17:42→22:26)
[2022-08-20] MEDS: THIAMINE HCL 100 MG TABLET (FP) PO SCH (22:25)
[2022-08-20] MEDS: MELATONIN 5 MG TABLETS PO PRN (22:26)
[2022-08-21] MEDS: diazePAM 5 MG TABLET PO SCH ×4 (05:38→22:12)
[2022-08-21] MEDS ORDERED: methaDONE HCL 40 MG DISPERSABLE TABLET PO SCH (06:00)
[2022-08-21] MEDS: PRENATAL VITAMINS W/ FOLIC ACID TABLET (FP) PO SCH (10:14)
[2022-08-21] MEDS: levETIRAcetam 500 MG TABLET (FP) PO SCH ×2 (10:14→22:12)
[2022-08-21] MEDS: IBUPROFEN 600 MG TABLET (FP) PO PRN (10:15)
[2022-08-21 11:25] LABS: HEMATOCRIT 39.5 % (35.4-49); HEMOGLOBIN 13.2 GM/dL (11.7-16.9); MCH 30.2 pg (25.7-33.7); MCHC 33.5 g/dl (32.0-35.9); MEAN CELL VOLUME 90.1 fl (80-96); MEAN PLT VOLUME 9.9 fl (7.5-11.1); PLATELET COUNT 195 10^3/uL (134-434); RBC 4.38 M/mm3 (4.00-5.60); RDW 14.4 % (11.9-15.9); WHITE BLOOD COUNT 11.9 K/mm3 (4.0-10.0)
[2022-08-21 11:32] LABS: POTASSIUM 4.8 mmol/L (3.5-5.1)
[2022-08-21 11:38] LABS: CALCIUM 9.6 mg/dL (8.5-10.1)
[2022-08-21 11:39] LABS: ALBUMIN 3.7 g/dl (3.4-5.0); BLOOD UREA NITROGEN 23.7 mg/dL (7-18)
[2022-08-21 11:43] LABS: BILIRUBIN,TOTAL 1.1 mg/dL (0.2-1); TOT PROT 7.5 g/dl (6.4-8.2)
[2022-08-21] MEDS: NICOTINE POLACRILEX 2 MG GUM BUC PRN (17:39)
[2022-08-21] MEDS: MELATONIN 5 MG TABLETS PO PRN (22:12)
[2022-08-21] MEDS: THIAMINE HCL 100 MG TABLET (FP) PO SCH (22:12)
[2022-08-22] MEDS: diazePAM 5 MG TABLET PO SCH ×3 (05:33→22:13)
[2022-08-22] MEDS: diazePAM 5 MG TABLET PO PRN (10:31)
[2022-08-22] MEDS: IBUPROFEN 600 MG TABLET (FP) PO PRN (10:32)
[2022-08-22] MEDS: levETIRAcetam 500 MG TABLET (FP) PO SCH ×2 (10:32→22:13)
[2022-08-22] MEDS: PRENATAL VITAMINS W/ FOLIC ACID TABLET (FP) PO SCH (10:32)
[2022-08-22] MEDS: THIAMINE HCL 100 MG TABLET (FP) PO SCH (22:13)
[2022-08-22] MEDS: MELATONIN 5 MG TABLETS PO PRN (22:14)
[2022-08-23] MEDS: diazePAM 5 MG TABLET PO SCH ×2 (06:29→17:22)
[2022-08-23] MEDS: PRENATAL VITAMINS W/ FOLIC ACID TABLET (FP) PO SCH (09:56)
[2022-08-23] MEDS: levETIRAcetam 500 MG TABLET (FP) PO SCH ×2 (09:56→22:17)
[2022-08-23] MEDS: NICOTINE POLACRILEX 2 MG GUM BUC PRN (09:57)
[2022-08-23] MEDS: diazePAM 5 MG TABLET PO PRN (10:38)
[2022-08-23] MEDS: MELATONIN 5 MG TABLETS PO PRN (22:17)
[2022-08-23] MEDS: THIAMINE HCL 100 MG TABLET (FP) PO SCH (22:17)
[2022-08-24] MEDS ORDERED: diazePAM 5 MG TABLET PO ONE (06:00)
[2022-08-24 06:15] VITALS: RESP 17; TEMP 96.9
[2022-08-24] MEDS: NICOTINE POLACRILEX 2 MG GUM BUC PRN ×2 (06:45→10:28)
[2022-08-24 09:22] VITALS: BP 128/83; PULSE 63
[2022-08-24] MEDS: PRENATAL VITAMINS W/ FOLIC ACID TABLET (FP) PO SCH (10:27)
[2022-08-24] MEDS: levETIRAcetam 500 MG TABLET (FP) PO SCH (10:27)
== END 2022-08-24 12:30 | disposition other institution (70) | DRG 773 ==
LOC: YASAS 11:07 → Y6N 12:35
PROVIDERS: ADMIT Allergy & Immunology; ATTEND Surgery
PROC: HZ2ZZZZ Detoxification Services for Substance Abuse Treatment (ICD-10-PCS; principal; 2022-08-20)
DX: F13.230 Sedative, hypnotic or anxiolytic dependence with withdrawal, uncomplicated (principal); F11.20 Opioid dependence, uncomplicated; F14.20 Cocaine dependence, uncomplicated; F17.210 Nicotine dependence, cigarettes, uncomplicated; F19.282 Other psychoactive substance dependence with psychoactive substance-induced sleep disorder; F19.24 Other psychoactive substance dependence with psychoactive substance-induced mood disorder; J45.20 Mild intermittent asthma, uncomplicated; G62.9 Polyneuropathy, unspecified; B18.2 Chronic viral hepatitis C; R74.8 Abnormal levels of other serum enzymes; Z88.7 Allergy status to serum and vaccine; Z91.013 Allergy to seafood
CPT/HCPCS: 36415; 80053; 85027; 86780; 87635; 87811